=== PATIENT | male | born 1940 | race American Indian/Alaskan Native ===

== ENCOUNTER 2019-06-23 17:22 | Inpatient (IN) | payer BC, MEDICARE ==
--- NOTE | 2019-06-23 17:47 | Event Note ---
ED Screening Note Date of service: 06/23/19 Time: 17:40 ED Screening Note: This is a 78 y.o. M. that presents to ER with hematemesis and hematochezia. Stool and emesis was black started on 06/19/19. PMH Prostate CA, venous reflux, DM2, HTN, & HLD Patient states he is fatigue. This initial assessment/diagnostic orders/clinical plan/treatment(s) is/are subject to change based on patients health status, clinical progression and re- assessment by fellow clinical providers in the ED. Further treatment and workup at subsequent clinical providers discretion. Patient/guardian urged not to elope from the ED as their condition may be serious if not clinically assessed and managed. Initial orders include: Labs and XR of abdomen
[2019-06-23 18:10] LABS: Basophils % (Auto) 0.1 % (0.0-1.8); Eosinophils % (Auto) 0.2 % (0.0-4.3); Hematocrit 22.9 % (35.5-45.6); Hemoglobin 7.5 gm/dl (11.8-15.2); Lymphocytes # (Auto) 0.6 K/mm3 (1.2-5.4); Lymphocytes % (Auto) 6.2 % (13.4-35.0); Mean Corpuscular HGB Conc 33 % (32-34); Mean Corpuscular Volume 105 fl (84-94); Monocytes # (Auto) 0.9 K/mm3 (0.0-0.8); Monocytes % (Auto) 9.6 % (0.0-7.3); Platelet Count 159 K/mm3 (140-440); Red Blood Count 2.18 M/mm3 (3.65-5.03); Red Cell Distribution Width 14.9 % (13.2-15.2)
[2019-06-23 18:19] LABS: INR 1.08 (0.87-1.13)
[2019-06-23] MEDS ORDERED: NACL 0.9% 1000 ML 1,000 ML ONE (18:19)
[2019-06-23 18:20] LABS: Partial Thromboplastin Time 24.3 Sec. (24.2-36.6)
[2019-06-23 18:28] LABS: Calcium 8.9 mg/dL (8.4-10.2)
--- NOTE | 2019-06-23 18:28 | XRay Report ---
ABDOMEN 1 VIEW(S) INDICATION / CLINICAL INFORMATION: Abdominal pain COMPARISON: None available. FINDINGS: TUBES / LINES: None. BOWEL GAS PATTERN: Air-fluid levels involving small and large bowel, most consistent with adynamic il eus. No evidence of high-grade obstruction. Signer Name: Rob Garcia MD Signed: 06/23/2019 6:24 PM Workstation Name: [email or web address]
[2019-06-23] MEDS ORDERED: NACL 0.9% 500 ML 500 ML IV ONE (18:31)
[2019-06-23] MEDS ORDERED: NACL 0.9% 1000 ML 1,000 ML IV ONE (18:32)
--- NOTE | 2019-06-23 18:42 | Emergency Department Report ---
ED GI Bleed HPI - General Chief complaint: GI Bleed Stated complaint: DARK STOOL/VOMITING Time Seen by Provider: 06/23/19 17:39 Source: patient Mode of arrival: Wheelchair Limitations: No Limitations - History of Present Illness Initial comments: Mr. Woods is a 78 yo male with hx of HTN, DM, dyslipidemia, metastatic prostate CA who presents with 4 days of dark stools and vomiting. Denies pain. Has has severe weakness. In the ED today, Mr. Woods was rushed to the ED treatment room after witnessed synopal episode in the radiology department. Mr. Woods denies pain. He is on chronic aspirin therapy. Has had dark emesis. No previous hx of GI bleed. He is taking oral hormonal and chemotherapy agents for prostate CA. Dx'd in 2016. Two recurrencs since. PCP Dr. Khan in [place] Oncologist Dr. Edward Jimenez MD complaint: coffee ground emesis, melena -: Gradual, days(s) (4) Quality: painless Consistency: constant Improves with: none Worsens with: none Context: medication/supplement use (chemotherapy, aspirin) Associated Symptoms: malaise, syncope - Related Data Home Medications Medication Instructions Recorded Confirmed Last Taken Aspirin EC [Aspirin Enteric Coated 81 mg PO QDAY 12/22/15 12/23/15 12/23/15 TAB] Atorvastatin Calcium 1 tab PO DAILY 12/22/15 01/03/16 01/02/16 08:00 Lisinopril/Hydrochlorothiazide 1 tab PO BID 12/22/15 01/03/16 01/03/16 06:30 [Zestoretic 20-12.5 mg] [place]-3 Fatty Acids/Fish Oil [Fish 1 each PO DAILY 12/22/15 12/22/15 12/22/15 Oil] Pioglitazone HCl 30 mg PO DAILY 12/22/15 01/03/16 01/02/16 08:00 Tamsulosin [Flomax] 0.4 mg PO QDAY 12/22/15 01/03/16 01/02/16 08:00 Allergies Allergy/AdvReac Type Severity Reaction Status Date / Time No Known Allergies Allergy Unverified 11/08/15 10:54 ED Review of Systems ROS: Stated complaint: DARK STOOL/VOMITING Other details as noted in HPI Comment: All other systems reviewed and negative Constitutional: malaise Cardiovascular: denies: chest pain, palpitations Gastrointestinal: vomiting, hematemesis, hematochezia. denies: abdominal pain ED Past Medical Hx - Past Medical History Previous Medical History?: Yes Hx Hypertension: Yes (25 YRS +) Hx Congestive Heart Failure: No Hx Diabetes: Yes (12 YRS) Hx Sickle Cell Disease: No Hx Asthma: No Hx COPD: No Hx HIV: No Additional medical history: PROSTATE CA WITH TREATMENT, VENOUS REFLUX, ELEVATED CHOLESTEROL - Surgical History Past Surgical History?: Yes - Social History Smoking Status: Never Smoker Substance Use Type: Alcohol - Medications Home Medications: Home Medications Medication Instructions Recorded Confirmed Last Taken Type Aspirin EC [Aspirin Enteric Coated 81 mg PO QDAY 12/22/15 12/23/15 12/23/15 History TAB] Atorvastatin Calcium 1 tab PO DAILY 12/22/15 01/03/16 01/02/16 08:00 History Lisinopril/Hydrochlorothiazide 1 tab PO BID 12/22/15 01/03/16 01/03/16 06:30 History [Zestoretic 20-12.5 mg] [place]-3 Fatty Acids/Fish Oil [Fish 1 each PO DAILY 12/22/15 12/22/15 12/22/15 History Oil] Pioglitazone HCl 30 mg PO DAILY 12/22/15 01/03/16 01/02/16 08:00 History Tamsulosin [Flomax] 0.4 mg PO QDAY 12/22/15 01/03/16 01/02/16 08:00 History ED Physical Exam - General Limitations: No Limitations General appearance: alert, in no apparent distress - Head Head exam: Present: atraumatic, normocephalic - Eye Eye exam: Present: normal appearance - ENT ENT exam: Present: mucous membranes moist - Neck Neck exam: Present: normal inspection, full ROM. Absent: tenderness, meningismus - Respiratory Respiratory exam: Present: normal lung sounds bilaterally. Absent: respiratory distress, wheezes, rales, rhonchi - Cardiovascular Cardiovascular Exam: Present: normal rhythm, tachycardia, normal heart sounds. Absent: systolic murmur, diastolic murmur, rubs, gallop - GI/Abdominal GI/Abdominal exam: Present: soft, normal bowel sounds. Absent: distended, tenderness, guarding, rebound - Rectal Rectal exam: Present: normal rectal tone, heme (+) stool, other (reddish tarry stool) - Extremities Exam Extremities exam: Present: normal inspection - Back Exam Back exam: Present: normal inspection - Neurological Exam Neurological exam: Present: alert, oriented X3 - Psychiatric Psychiatric exam: Present: normal affect, normal mood - Skin Skin exam: Present: warm, dry, intact, pallor. Absent: rash ED Course Vital Signs 06/23/19 06/23/19 06/23/19 17:40 18:15 18:20 Temperature 98.1 F Pulse Rate 116 H 95 H Respiratory 22 16 Rate Blood Pressure 96/46 74/37 74/37 O2 Sat by Pulse 98 Oximetry 06/23/19 06/23/19 06/23/19 18:30 18:40 18:50 Temperature Pulse Rate 94 H 91 H 89 Respiratory 12 16 20 Rate Blood Pressure 98/44 98/39 99/43 O2 Sat by Pulse 100 100 99 Oximetry 06/23/19 06/23/19 06/23/19 19:00 19:10 19:20 Temperature Pulse Rate 92 H 90 95 H Respiratory 11 L 12 21 Rate Blood Pressure 103/46 106/46 112/27 O2 Sat by Pulse 100 100 98 Oximetry 06/23/19 06/23/19 06/23/19 19:30 19:40 19:50 Temperature Pulse Rate 93 H 93 H 94 H Respiratory 15 12 16 Rate Blood Pressure 98/33 107/45 103/48 O2 Sat by Pulse 97 100 99 Oximetry 06/23/19 06/23/19 06/23/19 20:00 20:16 20:30 Temperature Pulse Rate 91 H 91 H 103 H Respiratory 21 13 18 Rate Blood Pressure 105/46 113/46 100/52 O2 Sat by Pulse 100 100 100 Oximetry 06/23/19 06/23/19 21:00 21:16 Temperature Pulse Rate 102 H 98 H Respiratory 17 21 Rate Blood Pressure 121/43 O2 Sat by Pulse 100 100 Oximetry ED Medical Decision Making - Lab Data Result diagrams: 06/23/19 17:49 06/23/19 17:49 Laboratory Results - last 24 hr 06/23/19 06/23/19 06/23/19 17:49 17:49 17:49 WBC 9.2 RBC 2.18 L Hgb 7.5 L Hct 22.9 L MCV 105 H MCH 35 H MCHC 33 RDW 14.9 Plt Count 159 Lymph % (Auto) 6.2 L [place] % (Auto) 9.6 H Eos % (Auto) 0.2 Baso % (Auto) 0.1 Lymph # 0.6 L [place] # 0.9 H Eos # 0.0 Baso # 0.0 Seg Neutrophils % 83.9 H Seg Neutrophils # 7.7 PT 13.7 INR 1.08 APTT 24.3 Sodium 138 Potassium 4.8 Chloride 98.9 Carbon Dioxide 19 L Anion Gap 25 BUN 149 H Creatinine 6.0 H Estimated GFR 11 BUN/Creatinine Ratio 25 Glucose 174 H Calcium 8.9 Total Bilirubin 0.40 AST 14 ALT 14 Alkaline Phosphatase 48 Total Protein 6.6 Albumin 4.0 Albumin/Globulin Ratio 1.5 - EKG Data 06/23/19 18:40 EKG obtained 1813 Normal sinus rhythm rate 90 beats a minute normal axis left bundle branch block no ST elevation - Radiology Data Radiology results: report reviewed KUB air-fluid levels involving the small and large bowel most consistent with adynamic ileus - Medical Decision Making Subacute Upper GI bleed with a past 4 days, and acute kidney injury. Persistent hypotension in spite 1500 mL of normal saline, I asked nurse to obtaining O- blood from blood Bank. I did discuss case with GI Dr. Trujillo. He personally spoke with Dr. Jimenez. Normal creatinine in the outpatient setting one month ago. After O-blood one unit, repeat BP had improved. Protonix treatment ordered. Calero placed according to Dr. Trujillo's recommendation. Must consider urinary obstruction in this scenario. Dr. rTujillo performed upper endoscopy. Discovered gastric ulcer with active bleeding. Dr. Trujillo treated the gastric ulcer with epinephrine injection and endoscopic clip. He recommended ICU admission, nothing by mouth status, Protonix infusion. He also recommended withholding further transfusion unless repeat Hgb is below 7. Admitted to the hospitalist service in critical condition Critical Care Time: Yes Critical care time in (mins) excluding proc time.: 70 Critical care attestation.: If time is entered above; I have spent that time in minutes in the direct care of this critically ill patient, excluding procedure time. 70 minutes of critical care time excluding procedures were used in the care of the patient. Patient required multiple assessments and interventions. I reviewed the electronic medical record. I spoke extensively with the daughter at the bedside. I spoke with multiple consultants. Reviewed electronic medical record. ED Disposition Clinical Impression: Acute upper GI bleed, Hemorrhagic shock, Acute kidney injury, Prostate cancer Disposition: DC-[id number] OP ADMIT IP TO THIS HOSP Is pt being admited?: Yes Does the pt Need Aspirin: No Condition: Stable
--- NOTE | 2019-06-23 20:36 | Gastroenterology Consultation ---
History of Present Illness - Reason for Consult Consult date: 06/23/19 Melena Requesting physician: ISABEL WASSERMAN - History of Present Illness The patient is a 78 yo male who came to the ER for weakness over the last 4 days, and dark stools (twice today, without hematemesis). He follows with Ally Jimenez for minimally metastatic prostate CA (Dx about 3 years ago), and was started on prednisone and antitestosterone meds 1 month ago. At that time his hgb was 11 and his Creat was 1. He does take ASA daily at home, and PRN advil/goodys (though none of that in 3 days). He has had no upper GI surgery; he denies chronic dyspepsia. He has had no BRBPR or hematochezia. He has no CAD or CHF, but does have HTN and DM. After transfusion, his BP is normal but was low on admit (no need for pressors). He is mentating well, and does not have hypotension. He denies abdominal pain, SOB, or CP. There is no prior hx of liver or kidney disease. He does state that his urine production has decreased in the last several days (but has made some pale yellow urine in the ER). Past History Past Medical History: cancer (Mets Prostate CA (dx approx 2014; prostatectomy, and minimally diffuse disease; now on antitestosterone meds)), diabetes, hypertension, hyperlipidemia. denies: CAD Past Surgical History: Other (Prostatectomy) Social history: lives with family. denies: smoking, alcohol abuse Family history: no significant family history Medications and Allergies Allergies Allergy/AdvReac Type Severity Reaction Status Date / Time No Known Allergies Allergy Unverified 11/08/15 10:54 Home Medications Medication Instructions Recorded Confirmed Last Taken Type Aspirin EC [Aspirin Enteric Coated 81 mg PO QDAY 12/22/15 12/23/15 12/23/15 History TAB] Atorvastatin Calcium 1 tab PO DAILY 12/22/15 01/03/16 01/02/16 08:00 History Lisinopril/Hydrochlorothiazide 1 tab PO BID 12/22/15 01/03/16 01/03/16 06:30 History [Zestoretic 20-12.5 mg] [place]-3 Fatty Acids/Fish Oil [Fish 1 each PO DAILY 12/22/15 12/22/15 12/22/15 History Oil] Pioglitazone HCl 30 mg PO DAILY 12/22/15 01/03/16 01/02/16 08:00 History Tamsulosin [Flomax] 0.4 mg PO QDAY 12/22/15 01/03/16 01/02/16 08:00 History Active Meds: I HAVE REVIEWED AND RECONCILED MEDICATIONS Review of Systems - Review of Systems All systems: negative (as noted in the HPI.) Exam - Constitutional Vital Signs: Temp Pulse Resp BP Pulse Ox 98.1 F 94 H 16 103/48 99 06/23/19 17:40 06/23/19 19:50 06/23/19 19:50 06/23/19 19:50 06/23/19 19:50 General appearance: no acute distress - EENT Eyes: PERRL, EOM intact ENT: hearing intact, clear oral mucosa, dentition normal, no thrush - Neck Neck: supple, normal ROM - Respiratory Respiratory effort: normal Respiratory: bilateral: CTA - Cardiovascular Rhythm: regular Heart Sounds: Present: S1 & S2 Extremities: no ischemia, No edema - Gastrointestinal General gastrointestinal: Present: soft, non-tender, non-distended - Integumentary Integumentary: Present: clear, warm, dry - Neurologic Neurological: alert and oriented x3 - Labs CBC & Chem 7: 06/23/19 17:49 06/23/19 17:49 Lab Results: Laboratory Results - last 24 hr 06/23/19 06/23/19 06/23/19 17:49 17:49 17:49 WBC 9.2 RBC 2.18 L Hgb 7.5 L Hct 22.9 L MCV 105 H MCH 35 H MCHC 33 RDW 14.9 Plt Count 159 Lymph % (Auto) 6.2 L [place] % (Auto) 9.6 H Eos % (Auto) 0.2 Baso % (Auto) 0.1 Lymph # 0.6 L [place] # 0.9 H Eos # 0.0 Baso # 0.0 Seg Neutrophils % 83.9 H Seg Neutrophils # 7.7 PT 13.7 INR 1.08 APTT 24.3 Sodium 138 Potassium 4.8 Chloride 98.9 Carbon Dioxide 19 L Anion Gap 25 BUN 149 H Creatinine 6.0 H Estimated GFR 11 BUN/Creatinine Ratio 25 Glucose 174 H POC Glucose Calcium 8.9 Total Bilirubin 0.40 AST 14 ALT 14 Alkaline Phosphatase 48 Total Protein 6.6 Albumin 4.0 Albumin/Globulin Ratio 1.5 Blood Type Antibody Screen Crossmatch 06/23/19 06/23/19 18:21 19:23 WBC RBC Hgb Hct MCV MCH MCHC RDW Plt Count Lymph % (Auto) [place] % (Auto) Eos % (Auto) Baso % (Auto) Lymph # [place] # Eos # Baso # Seg Neutrophils % Seg Neutrophils # PT INR APTT Sodium Potassium Chloride Carbon Dioxide Anion Gap BUN Creatinine Estimated GFR BUN/Creatinine Ratio Glucose POC Glucose 199 H Calcium Total Bilirubin AST ALT Alkaline Phosphatase Total Protein Albumin Albumin/Globulin Ratio Blood Type B NEGATIVE Antibody Screen Negative Crossmatch See Detail Assessment and Plan - Patient Problems (1) Melena Current Visit: Yes Status: Acute Plan to address problem: - Likely PUD given ASA/Goodys/Prednisone use - Will give protonix IV - Keep NPO for possible EGD tonight pending clinical course. - BP now normal post 1 unit PRBC; recommend repeat before further transfusion (2) Prostate cancer metastatic to bone Current Visit: Yes Status: Acute Plan to address problem: - Dx approx 2014. - Minimally mets, but has been recurrent after prostatectomy and casodex therapy. - Currently on antitestosterone meds, and prednisone - No pelvic/bladder disease on PET March (3) Acute renal insufficiency Current Visit: Yes Status: Acute Plan to address problem: - Unclear if dehydration, reaction to new meds, or obstructive; patient is making urine in the ER (minimal, less than 100ml) - Will defer to IMS service
[2019-06-23] MEDS ORDERED: PROTONIX IV ONE (20:40)
[2019-06-23] MEDS ORDERED: WATER FOR IRRIG STERILE IR ONE (20:56)
--- NOTE | 2019-06-23 20:59 | Anesthesia Consultation ---
Anesthesia Consult and Med Hx Date of service: 06/23/19 - Airway Anesthetic Teeth Evaluation: Edentulous ROM Head & Neck: Adequate Mental/Hyoid Distance: Adequate Mallampati Class: Class III Intubation Access Assessment: Possibly Difficult - Pre-Operative Health Status ASA Pre-Surgery Classification: ASA3, Emergency Proposed Anesthetic Plan: MAC - Pulmonary Hx Smoking: Yes (SMOKED FROM [id number]; 1 YR ONLY) Hx Asthma: No COPD: No Hx Pneumonia: No - Cardiovascular System Hx Hypertension: Yes (25 YRS +) - Central Nervous System Hx Psychiatric Problems: No - Gastrointestinal Hx Ulcer: Yes (Upper GI bleed) - Endocrine Hx End Stage Renal Disease: No Hx Non-Insulin Dependent Diabetes: Yes - Hematic Hx Anemia: No Hx Sickle Cell Disease: No - Other Systems Hx Alcohol Use: Yes (DAILY/2 BEER DAILY W/SHOT LIQUER) Hx Substance Use: No Hx Cancer: Yes (Minimally metastatic prostate CA) Hx Obesity: Yes (BMI 35.1)
[2019-06-23] MEDS ORDERED: PROTONIX 80 MG in NACL 0.9% 100 ML IV SCH (21:00)
--- NOTE | 2019-06-23 21:00 | Anesthesia Day of Surgery ---
Anesthesia Day of Surgery - Day of Surgery Patient Examined: Yes Patient H&P Reviewed: Yes Patient is NPO: Yes
[2019-06-23] MEDS ORDERED: AMIDATE IV ONE (21:12)
[2019-06-23] MEDS ORDERED: ADRENALINE P/F IV ONE (21:30)
--- NOTE | 2019-06-23 22:02 | Post Operative Note ---
Pre-op diagnosis: GI Bleed Post-op diagnosis: other (Gastric Ulcer) Findings: 1. Normal duodenum 2. 5mm actively bleeding PUD in antrum - Clip x 1 (with 2 misfires) - Epinephrine 5ml subcut - Good control of bleed after procedure, but vessel large, and high risk to rebleed 3. Moderate blood and food in proximal stomach, unable to fully clear 4. Normal esophagus Procedure: EGD with epi injection and endoscopic clip for bleeding control Anesthesia: MAC Surgeon: TRAY CONTRERAS Estimated blood loss: minimal Pathology: none Specimen disposition: other (N/A) Condition: critical Disposition: ICU (Recs: 1. Protonix gtt and NPO status except critical meds. 2. Repeat EGD tomorrow to assess clip and retreat vessel (if active bleeding, would embolize given size). 3. Avoid all NSAIDs for now. 4. Transfuse as needed.)
--- NOTE | 2019-06-23 22:09 | Post Anesthesia Evaluation ---
- Post Anesthesia Evaluation Patient Participated: Yes Airway Patent: Yes Stable Respiratory Function: Yes Nausea/Vomiting: No Temp > 96.8F: Yes Pain Manageable: Yes Adequeate Hydration: Yes Anesthesia Complications: No
--- NOTE | 2019-06-23 22:21 | Operative Report ---
PROCEDURE PERFORMED: Esophagogastroduodenoscopy with epinephrine injection as well as endoscopic clipping for bleeding control. PREOPERATIVE DIAGNOSIS: Melena. POSTOPERATIVE DIAGNOSIS: Gastric ulcer. ENDOSCOPIST: Chidi Trujillo MD INSTRUMENT: Olympus video endoscope. MEDICATIONS: MAC anesthesia by Anesthesia Services. COMPLICATIONS: No apparent complications. ESTIMATED BLOOD LOSS: Minimal. Due to the procedure, but the patient was having an active GI bleed at the start of the procedure. IMPLANTS: Endoscopic clip x 1, MRI conditional; 3 clips were deployed, but 2 failed to adhere to the mucosa. ASSISTANTS: None. CONDITION AT COMPLETION: Critical but stable. TECHNIQUE: The patient was informed of the risks and benefits of the procedure. He signed informed consent to proceed. He was placed in left lateral decubitus position. The above sedative medications were given. His vital signs remained stable throughout the procedure. The instrument was advanced from the mouth to the second portion of the duodenum under direct visualization. At that point, the bowel was insufflated and the endoscope was slowly withdrawn. FINDINGS: 1. Normal appearing duodenum. 2. A 5 mm actively bleeding ulcer in the antrum of the stomach with a large visible vessels. A. We performed endoscopic clipping x3; 2 were misfires, but 1 adhered across the ulcer with clipping directly on the vessel. B. Epinephrine 5 mg was injected submucosally around the base of the ulcer to further prevent bleeding. C. There was good control of bleeding after the procedure, but the vessel, there was a clip to large and is at high risk to rebleed. 3. Moderate amount of blood and food in the proximal stomach, and we were unable to fully clear this. 4. Normal appearing esophagus with no varices. RECOMMENDATIONS: 1. Protonix drip and nothing by mouth status except for critical medications. 2. Admission to the Intensive Care Unit. 3. Repeat upper endoscopy tomorrow to assess the endoscopic clip and retreat the vessel if needed; if there is active significant bleeding, I would embolize given the size of the underlying vessel. 4. Avoid all nonsteroidal anti-inflammatory drugs for now. 5. Transfuse the patient as needed. JOB# [id number] MARKUS/NTS
[2019-06-23] MEDS ORDERED: SODIUM CHLORIDE FLUSH SYRINGE 10 ML IV PRN (22:57)
[2019-06-23] MEDS ORDERED: TYLENOL PO PRN (22:57)
[2019-06-23] MEDS ORDERED: ZOFRAN IV PRN (22:57)
[2019-06-23] MEDS ORDERED: NACL 0.9% 1000 ML 1,000 ML IV SCH (23:00)
[2019-06-23] MEDS ORDERED: ATIVAN IV PRN ×2 (23:06)
[2019-06-23] MEDS ORDERED: D50W (25GM) Syringe IV PRN (23:07)
--- NOTE | 2019-06-23 23:14 | History and Physical Report ---
History of Present Illness Date of examination: 06/23/19 History of present illness: 78-year-old man with a history of metastatic prostate cancer, hypertension, diabetes, venous insufficiency comes emergency room with complaints of back stool since June 19. He had 3 episodes of black stool and vomiting dark emesis on June 19, vomiting subsided but he continued to have black stools. Denies any NSAID use, is on aspirin, prednisone, chronic diuretic therapy. No NSAID use. s/p EGD in the emergency room, and transfusion of 1 unit of blood eview Of Systems: Constitutional: no weight loss, fever, chills Ears, eyes, nose, mouth and throat: no nasal congestion, no nasal discharge, no sinus pressure, blurry vision, diplopia Neck: No neck pain or rigidity. Cardiovascular: No palpitations, chest pain Respiratory: No shortness of breath, cough Gastrointestinal: No hematochezia, abdominal pain Genitourinary : no dysuria, frequency , hematuria Musculoskeletal: no muscle ache , joint pain Integumentary: no rash, no pruritis Neurological: no parathesias, focal weakness Endocrine: no cold or heat intolerance, no polyuria or polydipsia Hematologic/Lymphatic: no easy bruising, no easy bleeding, no gland swelling Allergic/Immunologic: no urticaria, no angioedema. PAST MEDICAL HISTORY:metastatic prostate cancer, hypertension, diabetes, venous insufficiency PAST SURGICAL HISTORY: Prostatectomy FAMILY HISTORY:hypertension, diabetes SOCIAL HISTORY: Denies tobacco, drugs, drink 2 cups of rum and coke/day Past History Past Medical History: cancer (Mets Prostate CA (dx approx 2014; prostatectomy, and minimally diffuse disease; now on antitestosterone meds)), diabetes, hypertension, hyperlipidemia. denies: CAD Past Surgical History: Other (Prostatectomy) Social history: lives with family. denies: smoking, alcohol abuse Family history: no significant family history Medications and Allergies Allergies Allergy/AdvReac Type Severity Reaction Status Date / Time No Known Allergies Allergy Unverified 11/08/15 10:54 Home Medications Medication Instructions Recorded Confirmed Last Taken Type Aspirin EC [Aspirin Enteric Coated 81 mg PO QDAY 12/22/15 12/23/15 12/23/15 History TAB] Atorvastatin Calcium 1 tab PO DAILY 12/22/15 01/03/16 01/02/16 08:00 History Lisinopril/Hydrochlorothiazide 1 tab PO BID 12/22/15 01/03/16 01/03/16 06:30 History [Zestoretic 20-12.5 mg] [place]-3 Fatty Acids/Fish Oil [Fish 1 each PO DAILY 12/22/15 12/22/15 12/22/15 History Oil] Pioglitazone HCl 30 mg PO DAILY 12/22/15 01/03/16 01/02/16 08:00 History Tamsulosin [Flomax] 0.4 mg PO QDAY 12/22/15 01/03/16 01/02/16 08:00 History Active Meds: Active Medications Acetaminophen (Tylenol) 650 mg PO Q4H PRN PRN Reason: Pain MILD(1-3)/Fever >100.5/MONTOYA Dextrose (D50w (25gm) Syringe) 50 ml IV PRN PRN PRN Reason: Hypoglycemia Pantoprazole Sodium 80 mg/ (Sodium Chloride) 100 mls @ 10 mls/hr IV DIRECT ROBERTO Last Admin: 06/23/19 22:35 Dose: 8 mg/hr, 10 mls/hr Documented by: Sodium Chloride (Nacl 0.9% 1000 Ml) 1,000 mls @ 75 mls/hr IV DIRECT ROBERTO Lorazepam (Ativan) 2 mg IV Q1HR PRN PRN Reason: CIWA-Ar 8-15 Lorazepam (Ativan) 4 mg IV Q1HR PRN PRN Reason: CIWA-Ar 16-25 Ondansetron HCl (Zofran) 4 mg IV Q4H PRN PRN Reason: Nausea And Vomiting Sodium Chloride (Sodium Chloride Flush Syringe 10 Ml) 10 ml IV BID ROBERTO Sodium Chloride (Sodium Chloride Flush Syringe 10 Ml) 10 ml IV PRN PRN PRN Reason: LINE FLUSH Exam - Physical Exam Narrative exam: General Apperance: The patient sitting in bed no acute distress HEENT: Normocephalic, atraumatic. Pupils equally round and reactive to light, extraocular movement intact, and no sclericterus or JVD or thyromegaly or nodule. Neck supple, no carotid bruit, mucous membranes moist, no exudate or erythema Heart: S1-S2, regular is rhythm Lungs: Clear to auscultation bilaterally, breathing comfortable Abdomen: Positive bowel sounds, soft, nontender, nondistended, no organomegaly Extremities: +edema no cyanosis clubbing Skin: no rash, nodule, warm and dry Neuro:CN 2 -12 intact, motor/sensory intact, speech is fluent - Constitutional Vitals: Temp Pulse Resp BP Pulse Ox 98.2 F 99 H 17 113/39 96 06/23/19 21:51 06/23/19 22:21 06/23/19 22:21 06/23/19 22:21 06/23/19 22:21 Results - Labs CBC & Chem 7: 06/24/19 04:17 06/24/19 04:17 Labs: Abnormal lab results 06/23/19 06/23/19 06/23/19 Range/Units 17:49 17:49 18:21 RBC 2.18 L (3.65-5.03) M/mm3 Hgb 7.5 L (11.8-15.2) gm/dl Hct 22.9 L (35.5-45.6) % MCV 105 H (84-94) fl MCH 35 H (28-32) pg Lymph % (Auto) 6.2 L (13.4-35.0) % [place] % (Auto) 9.6 H (0.0-7.3) % Lymph # 0.6 L (1.2-5.4) K/mm3 [place] # 0.9 H (0.0-0.8) K/mm3 Seg Neutrophils % 83.9 H (40.0-70.0) % Carbon Dioxide 19 L (22-30) mmol/L BUN 149 H (9-20) mg/dL Creatinine 6.0 H (0.8-1.5) mg/dL Glucose 174 H (75-100) mg/dL POC Glucose 199 H (70-105) Crossmatch 06/23/19 Range/Units 19:23 RBC (3.65-5.03) M/mm3 Hgb (11.8-15.2) gm/dl Hct (35.5-45.6) % MCV (84-94) fl MCH (28-32) pg Lymph % (Auto) (13.4-35.0) % [place] % (Auto) (0.0-7.3) % Lymph # (1.2-5.4) K/mm3 [place] # (0.0-0.8) K/mm3 Seg Neutrophils % (40.0-70.0) % Carbon Dioxide (22-30) mmol/L BUN (9-20) mg/dL Creatinine (0.8-1.5) mg/dL Glucose (75-100) mg/dL POC Glucose (70-105) Crossmatch See Detail - Imaging and Cardiology Abdominal x-ray: report reviewed Assessment and Plan Assessment GI bleed secondary to peptic ulcer disease, status post clipping Acute renal failure Blood loss anemia Hypertension Diabetes Venous insufficiency Plan Admit to medicine Transfuse packed red blood cells as needed, check serial hemoglobin Continue with Protonix drip, GI consult Start IV fluid, monitor renal function, removed diuretics and his other nephrotoxic medications Check CT abdomen and pelvis, consult renal, case discussed for renal Place [place], check fingersticks, hold insulin DVT prophylaxis
[2019-06-23 23:44] LABS: Hemoglobin 9.5 gm/dl (11.8-15.2)
--- NOTE | 2019-06-24 00:07 | Cat Scan Report ---
CT abdomen pelvis wo con INDICATION / CLINICAL INFORMATION: arf, PC. TECHNIQUE: All CT scans at this location are performed using CT dose reduction for ALARA by means of automated e xposure control. COMPARISON: 11/08/2015 FINDINGS: No acute disease is seen in either lower lung. ABDOMEN: The gallbladder, liver, spleen, pancreas and kidneys are normal. No adrenal masses or retroperitoneal adenopathy. The small bowel is normal in appearance. Pelvis: Postsurgical changes are noted in the pelvis. No pelvic adenopathy, dependent fluid collection or acute inflammatory findings. Blastic bone lesion has developed at the L1 vertebral body level extending into the posterior element s consistent with skeletal metastatic disease. IMPRESSION: 1. No acute abdominal or pelvic abnormality. 2. 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 Signer Name: Ryan Iglesias MD Signed: 06/24/2019 12:03 AM Workstation Name: [id number]
[2019-06-24] MEDS ORDERED: NACL 0.9% 1000 ML 1,000 ML ONE ×2 (03:40→16:39)
[2019-06-24 04:51] LABS: Hematocrit 23.8 % (35.5-45.6); Hemoglobin 7.9 gm/dl (11.8-15.2); Mean Corpuscular HGB Conc 33 % (32-34); Mean Corpuscular Volume 102 fl (84-94); Platelet Count 135 K/mm3 (140-440); Red Blood Count 2.33 M/mm3 (3.65-5.03); Red Cell Distribution Width 16.3 % (13.2-15.2)
[2019-06-24 05:13] LABS: Calcium 8.1 mg/dL (8.4-10.2)
[2019-06-24 05:33] LABS: Anisocytosis 1+; Band Neutrophils # (Manual) 0.2 K/mm3; Basophils % (Manual) 0 % (0.0-1.8); Eosinophils % (Manual) 0 % (0.0-4.3); Platelet Estimate Consistent w Auto; Total Cells Counted 100
[2019-06-24] MEDS ORDERED: NACL 0.45% 1000 ML 1,000 ML with SODIUM BICARBONATE 75 MEQ IV SCH (07:00)
--- NOTE | 2019-06-24 07:13 | Consultation ---
History of Present Illness Consult date: 06/24/19 Reason for consult: other (Syncope, GI bleed) Past History Past Medical History: cancer (Mets Prostate CA (dx approx 2015; prostatectomy, and minimally diffuse disease; now on antitestosterone meds)), diabetes, hypertension, hyperlipidemia. denies: CAD Past Surgical History: Other (Prostatectomy) Social history: lives with family. denies: smoking, alcohol abuse Family history: no significant family history Medications and Allergies Allergies Allergy/AdvReac Type Severity Reaction Status Date / Time No Known Allergies Allergy Unverified 11/08/15 10:54 Home Medications Medication Instructions Recorded Confirmed Last Taken Type ASA/Calcium Carb/Mag/Aluminum 81 mg PO DAILY 06/24/19 06/24/19 06/23/19 History [Raymond Plus 500 mg Caplet] Abiraterone Acetate 250 mg PO DAILY 06/24/19 06/24/19 06/23/19 History AtorvaSTATin [Lipitor] 40 mg PO DAILY 06/24/19 06/24/19 06/23/19 History Degarelix (Nf) [Firmagon (Nf)] 240 mg SQ QMONTH 06/24/19 06/24/19 Unknown History Furosemide 20 mg PO DAILY 06/24/19 06/24/19 06/23/19 History Lisinopril [Zestril] 20 mg PO QDAY 06/24/19 06/24/19 06/23/19 History Ondansetron [Zofran ODT TAB] 8 mg PO Q8HR PRN 06/24/19 06/24/19 06/23/19 History Prednisone [predniSONE (Shy) ER 5 mg PO QDAY 06/24/19 06/24/19 06/23/19 History TAB] Active Meds: Active Medications Acetaminophen (Tylenol) 650 mg PO Q4H PRN PRN Reason: Pain MILD(1-3)/Fever >100.5/MONTOYA Dextrose (D50w (25gm) Syringe) 50 ml IV PRN PRN PRN Reason: Hypoglycemia Pantoprazole Sodium 80 mg/ (Sodium Chloride) 100 mls @ 10 mls/hr IV DIRECT ROBERTO Last Admin: 06/23/19 22:35 Dose: 8 mg/hr, 10 mls/hr Documented by: Sodium Bicarbonate 75 meq/ (Sodium Chloride) 1,075 mls @ 150 mls/hr IV DIRECT ROBERTO Lorazepam (Ativan) 2 mg IV Q1HR PRN PRN Reason: CIWA-Ar 8-15 Lorazepam (Ativan) 4 mg IV Q1HR PRN PRN Reason: CIWA-Ar 16-25 Ondansetron HCl (Zofran) 4 mg IV Q4H PRN PRN Reason: Nausea And Vomiting Sodium Chloride (Sodium Chloride Flush Syringe 10 Ml) 10 ml IV BID ROBERTO Sodium Chloride (Sodium Chloride Flush Syringe 10 Ml) 10 ml IV PRN PRN PRN Reason: LINE FLUSH Physical Examination Vital signs: Vital Signs Temp Pulse Resp BP Pulse Ox 98.1 F 116 H 22 96/46 98 06/23/19 17:40 06/23/19 17:40 06/23/19 17:40 06/23/19 17:40 06/23/19 17:40 Results - Laboratory Findings CBC and BMP: 06/24/19 04:17 06/24/19 04:17 PT/INR, D-dimer PT 13.7 Sec. (12.2-14.9) 06/23/19 17:49 INR 1.08 (0.87-1.13) 06/23/19 17:49 Abnormal lab findings: Abnormal Labs 06/23/19 06/23/19 06/23/19 17:49 17:49 18:21 RBC 2.18 L Hgb 7.5 L Hct 22.9 L MCV 105 H MCH 35 H RDW Plt Count Lymph % (Auto) 6.2 L [place] % (Auto) 9.6 H Lymph # 0.6 L [place] # 0.9 H Seg Neutrophils % 83.9 H Seg Neuts % (Manual) Lymphocytes % (Manual) Monocytes % (Manual) Lymphocytes # (Manual) Monocytes # (Manual) Carbon Dioxide 19 L BUN 149 H Creatinine 6.0 H Glucose 174 H POC Glucose 199 H Calcium Crossmatch 06/23/19 06/23/19 06/24/19 19:23 23:25 04:17 RBC 2.33 L Hgb 9.5 L 7.9 L Hct 28.0 L 23.8 L MCV 102 H MCH 34 H RDW 16.3 H Plt Count 135 L Lymph % (Auto) [place] % (Auto) Lymph # [place] # Seg Neutrophils % Seg Neuts % (Manual) 79.0 H Lymphocytes % (Manual) 7.0 L Monocytes % (Manual) 12.0 H Lymphocytes # (Manual) 0.6 L Monocytes # (Manual) 1.1 H Carbon Dioxide BUN Creatinine Glucose POC Glucose Calcium Crossmatch See Detail 06/24/19 04:17 RBC Hgb Hct MCV MCH RDW Plt Count Lymph % (Auto) [place] % (Auto) Lymph # [place] # Seg Neutrophils % Seg Neuts % (Manual) Lymphocytes % (Manual) Monocytes % (Manual) Lymphocytes # (Manual) Monocytes # (Manual) Carbon Dioxide 20 L BUN 132 H Creatinine 4.8 H Glucose 113 H POC Glucose Calcium 8.1 L Crossmatch
--- NOTE | 2019-06-24 09:35 | Consultation ---
History of Present Illness - History of Present Illness My assessment and plan are as follows acute renal failure likely in a patient who has, risk factors for underlying chronic kidney disease would like to know his baseline creatinine from his treating oncologist, likely etiology appears to be due to volume depletion, he was also using DOUGIE inhibitor as well as Goody's powder in the outpatient setting, has had GI bleed Rule out any possibility of underlying chronic kidney disease as he does have multiple risk factors for that CAT scan obtained yesterday shows no evidence of any obstructive uropathy, there is evidence of osteoblastic metastatic disease at L1 There is no emergent indication for renal replacement therapy, , patient is a need for IV hydration and strict monitoring of intake and output if renal function fails to improve we may consider renal replacement therapy temporarily, Patient has been adequately counseled and educated regarding the severity of renal failure and possible need for renal replacement therapy In the meantime we'll like to follow daily labs, obtain renal ultrasonogram as well as workup for renal failure Mild metabolic acidosis to monitor and follow continue with hydration Hypotension with GI bleed, was also using Goody's powder Patient as well as his have been adequately counseled and educated regarding all the renal related issues Renal care plan was discussed with patient patient agrees for hemodialysis, Vas-Cath placement if required Prognosis remains guarded at this time We'll continue to follow and make recommendation from renal standpoint She have any questions please feel free to contact me at [phone] Cruz Soto M.D. [facility], [address] [place] [address] History of presenting illness 78-year-old male who has been admitted here with hematemesis as well as hematochezia, and was noted to have, a BUN of 149 creatinine 6.0 bicarbonate 19 with a hemoglobin of 7.5. Patient has been followed by Dr. Jimenez for metastatic prostate cancer diagnosed approximately 3 years ago and has been undergoing treatment., He has also been taking Advil as well as Goody's powder off and on. Patient denies any history of hepatitis B C HIV or lupus He was also feeling very dizzy and lightheaded prior to arrival Patient has had endoscopy in the emergency room and was given packed red blood cell transfusion/he was noted to have a 5 mm bleeding peptic ulcer disease in the antrum and is currently being followed by GI service His creatinine is 8.1 BUN of 120 with a bicarbonate of 20 today Patient was on lisinopril in outpatient setting 20 mg once a day And the old records his creatinine was 1.1 in 2016, His appetite has been very poor for last 3-4 days patient has received packed blood blood cell transfusion here was also noted to be hypotensive Past medical history significant for Metastatic prostate cancer Diabetes mellitus type 2 Venous insufficiency Nonsteroidal medications use Prostatectomy Current allergies: None Home medication present medication: Reviewed Social history/family history: Reviewed Review of systems positive for generalized weakness and dark stools fatigue poor appetite for last several days Patient has been using nonsteroidal drugs in outpatient setting including Goody's powder as well as Advil Physical examination: General: No acute distress HEENT: Oral mucosa moist no icterus, no facial swelling, Moderate pallor present Patient does have some uremic order Neck: Supple no thyromegaly no lymphadenopathy no JVD Chest: Clear to auscultation no crackles rales or wheezes Heart: Regular rate and rhythm S1-S2 heard no S3-S4 Abdomen: Soft nontender no organomegaly no masses palpable no renal bruit no suprapubic masses no CVA tenderness Dermatology: No skin rashes noted Extremity: Less than 1+ peripheral edema, dry skin no petechial rashes Musculoskeletal: No joint effusion noted in knee and ankle area Psych: No evidence of agitation and aggression noted Neurological: Alert awake follows commands no tremors no myoclonus Back: No CVA tenderness Past History Past Medical History: cancer (Mets Prostate CA (dx approx 2014; prostatectomy, and minimally diffuse disease; now on antitestosterone meds)), diabetes, hypertension, hyperlipidemia. denies: CAD Past Surgical History: Other (Prostatectomy) Social history: lives with family. denies: smoking, alcohol abuse Family history: no significant family history Medications and Allergies Allergies Allergy/AdvReac Type Severity Reaction Status Date / Time No Known Allergies Allergy Unverified 11/08/15 10:54 Home Medications Medication Instructions Recorded Confirmed Last Taken Type ASA/Calcium Carb/Mag/Aluminum 81 mg PO DAILY 06/24/19 06/24/19 06/23/19 History [Raymond Plus 500 mg Caplet] Abiraterone Acetate 250 mg PO DAILY 06/24/19 06/24/19 06/23/19 History AtorvaSTATin [Lipitor] 40 mg PO DAILY 06/24/19 06/24/19 06/23/19 History Degarelix (Nf) [Firmagon (Nf)] 240 mg SQ QMONTH 06/24/19 06/24/19 Unknown History Furosemide 20 mg PO DAILY 06/24/19 06/24/19 06/23/19 History Lisinopril [Zestril] 20 mg PO QDAY 06/24/19 06/24/19 06/23/19 History Ondansetron [Zofran ODT TAB] 8 mg PO Q8HR PRN 06/24/19 06/24/19 06/23/19 History Prednisone [predniSONE (Shy) ER 5 mg PO QDAY 06/24/19 06/24/19 06/23/19 History TAB] Active Meds: Active Medications Acetaminophen (Tylenol) 650 mg PO Q4H PRN PRN Reason: Pain MILD(1-3)/Fever >100.5/MONTOYA Dextrose (D50w (25gm) Syringe) 50 ml IV PRN PRN PRN Reason: Hypoglycemia Pantoprazole Sodium 80 mg/ (Sodium Chloride) 100 mls @ 10 mls/hr IV DIRECT ROBERTO Last Admin: 06/23/19 22:35 Dose: 8 mg/hr, 10 mls/hr Documented by: Sodium Bicarbonate 75 meq/ (Sodium Chloride) 1,075 mls @ 150 mls/hr IV DIRECT ROBERTO Lorazepam (Ativan) 2 mg IV Q1HR PRN PRN Reason: CIWA-Ar 8-15 Lorazepam (Ativan) 4 mg IV Q1HR PRN PRN Reason: CIWA-Ar 16-25 Ondansetron HCl (Zofran) 4 mg IV Q4H PRN PRN Reason: Nausea And Vomiting Sodium Chloride (Sodium Chloride Flush Syringe 10 Ml) 10 ml IV BID ROBERTO Sodium Chloride (Sodium Chloride Flush Syringe 10 Ml) 10 ml IV PRN PRN PRN Reason: LINE FLUSH Exam - Vital Signs Vital signs: Vital Signs Temp Pulse Resp BP Pulse Ox 98.1 F 116 H 22 96/46 98 06/23/19 17:40 06/23/19 17:40 06/23/19 17:40 06/23/19 17:40 06/23/19 17:40 Results - Lab Results 06/24/19 18:08 06/24/19 04:17 Most recent lab results Calcium 8.1 mg/dL (8.4-10.2) L 06/24/19 04:17
[2019-06-24] MEDS: SODIUM CHLORIDE FLUSH SYRINGE 10 ML IV SCH (10:00)
[2019-06-24] MEDS ORDERED: D50W (25GM) Syringe IV ONE (11:44)
--- NOTE | 2019-06-24 11:53 | Gastroenterology Progress Note ---
Assessment and Plan 1.UGIB/melena -H/H 7.9/23.8 s/p 1 unit PRBCs -continue to monitor H/H and transfuse as needed -hold blood thinning medications -no active signs of bleeding this am -s/p EGD overnight 06/23/19 that showed 5mm actively bleeding PUD in antrum (s/p clip x 1 and epinephrine with good control of bleed after procedure but vessel large and high risk to rebleed), moderate blood/food in proximal stomach (unable to fully clear), and normal esophagus and duodenum -etiology-likely PUD given ASA/Goodys/Prednisone use -will consider repeat EGD today based on progress to assess clip and retreat vessel -Keep NPO for now except critical meds -continue protonix drip -avoid NSAID -continue supportive care -if rebleeds, recommend consult to IR for possible embolization -will follow 2.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 - Minimally mets, but has been recurrent after prostatectomy and casodex therapy. - Currently on antitestosterone meds, and prednisone - No pelvic/bladder disease on PET March 12.acute renal insufficiency - Unclear if dehydration, reaction to new meds, or obstructive; patient is making urine in the ER (minimal, less than 100ml) - Will defer to IMS service Subjective Date of service: 06/24/19 Principal diagnosis: GI bleed Interval history: No acute distress or active signs of bleeding this am per pt/nursing. Objective - Constitutional Vitals: Temp Pulse Resp BP Pulse Ox 98.1 F 100 H 23 98/52 100 06/24/19 04:05 06/24/19 06:30 06/24/19 07:39 06/24/19 06:30 06/24/19 07:39 General appearance: no acute distress - Respiratory Respiratory effort: normal - Cardiovascular Rhythm: other (tachycardia) - Gastrointestinal General gastrointestinal: Present: soft, non-tender, non-distended, normal bowel sounds - Neurologic Neurological: alert and oriented x3 - Labs CBC & Chem 7: 06/24/19 04:17 06/24/19 04:17 Labs: Laboratory Results - last 24 hr 06/23/19 06/23/19 06/23/19 17:49 17:49 17:49 WBC 9.2 RBC 2.18 L Hgb 7.5 L Hct 22.9 L MCV 105 H MCH 35 H MCHC 33 RDW 14.9 Plt Count 159 Lymph % (Auto) 6.2 L [place] % (Auto) 9.6 H Eos % (Auto) 0.2 Baso % (Auto) 0.1 Lymph # 0.6 L [place] # 0.9 H Eos # 0.0 Baso # 0.0 Add Manual Diff Total Counted Seg Neutrophils % 83.9 H Seg Neuts % (Manual) Band Neutrophils % Lymphocytes % (Manual) Reactive Lymphs % (Man) Monocytes % (Manual) Eosinophils % (Manual) Basophils % (Manual) Metamyelocytes % Myelocytes % Promyelocytes % Blast Cells % Nucleated RBC % Seg Neutrophils # 7.7 Seg Neutrophils # Man Band Neutrophils # Lymphocytes # (Manual) Abs React Lymphs (Man) Monocytes # (Manual) Eosinophils # (Manual) Basophils # (Manual) Metamyelocytes # Myelocytes # Promyelocytes # Blast Cells # WBC Morphology Hypersegmented Neuts Hyposegmented Neuts Hypogranular Neuts Smudge Cells Toxic Granulation Toxic Vacuolation Dohle Bodies Pelger-Huet Anomaly Victorino Rods Platelet Estimate Clumped Platelets Plt Clumps, EDTA Large Platelets Giant Platelets Platelet Satelliting Plt Morphology Comment RBC Morphology Dimorphic RBCs Polychromasia Hypochromasia Poikilocytosis Anisocytosis Microcytosis Macrocytosis Spherocytes Pappenheimer Bodies Sickle Cells Target Cells Tear Drop Cells Ovalocytes Helmet Cells [place] Bodies [place] Rings Ekaterina Cells Bite Cells Crenated Cell Elliptocytes Acanthocytes (Spur) Rouleaux Hemoglobin C Crystals Schistocytes Malaria parasites Mario Bodies Hem Pathologist Commnt PT 13.7 INR 1.08 APTT 24.3 Sodium 138 Potassium 4.8 Chloride 98.9 Carbon Dioxide 19 L Anion Gap 25 BUN 149 H Creatinine 6.0 H Estimated GFR 11 BUN/Creatinine Ratio 25 Glucose 174 H POC Glucose Uric Acid Calcium 8.9 Total Bilirubin 0.40 AST 14 ALT 14 Alkaline Phosphatase 48 Total Creatine Kinase Total Protein 6.6 Albumin 4.0 Albumin/Globulin Ratio 1.5 Blood Type Antibody Screen Crossmatch 06/23/19 06/23/19 06/23/19 18:21 19:23 23:25 WBC RBC Hgb 9.5 L Hct 28.0 L MCV MCH MCHC RDW Plt Count Lymph % (Auto) [place] % (Auto) Eos % (Auto) Baso % (Auto) Lymph # [place] # Eos # Baso # Add Manual Diff Total Counted Seg Neutrophils % Seg Neuts % (Manual) Band Neutrophils % Lymphocytes % (Manual) Reactive Lymphs % (Man) Monocytes % (Manual) Eosinophils % (Manual) Basophils % (Manual) Metamyelocytes % Myelocytes % Promyelocytes % Blast Cells % Nucleated RBC % Seg Neutrophils # Seg Neutrophils # Man Band Neutrophils # Lymphocytes # (Manual) Abs React Lymphs (Man) Monocytes # (Manual) Eosinophils # (Manual) Basophils # (Manual) Metamyelocytes # Myelocytes # Promyelocytes # Blast Cells # WBC Morphology Hypersegmented Neuts Hyposegmented Neuts Hypogranular Neuts Smudge Cells Toxic Granulation Toxic Vacuolation Dohle Bodies Pelger-Huet Anomaly Victorino Rods Platelet Estimate Clumped Platelets Plt Clumps, EDTA Large Platelets Giant Platelets Platelet Satelliting Plt Morphology Comment RBC Morphology Dimorphic RBCs Polychromasia Hypochromasia Poikilocytosis Anisocytosis Microcytosis Macrocytosis Spherocytes Pappenheimer Bodies Sickle Cells Target Cells Tear Drop Cells Ovalocytes Helmet Cells [place] Bodies [place] Rings Rippey Cells Bite Cells Crenated Cell Elliptocytes Acanthocytes (Spur) Rouleaux Hemoglobin C Crystals Schistocytes Malaria parasites Mario Bodies Hem Pathologist Commnt PT INR APTT Sodium Potassium Chloride Carbon Dioxide Anion Gap BUN Creatinine Estimated GFR BUN/Creatinine Ratio Glucose POC Glucose 199 H Uric Acid Calcium Total Bilirubin AST ALT Alkaline Phosphatase Total Creatine Kinase Total Protein Albumin Albumin/Globulin Ratio Blood Type B NEGATIVE Antibody Screen Negative Crossmatch See Detail 06/24/19 06/24/19 06/24/19 04:17 04:17 04:17 WBC 9.1 RBC 2.33 L Hgb 7.9 L Hct 23.8 L MCV 102 H MCH 34 H MCHC 33 RDW 16.3 H Plt Count 135 L Lymph % (Auto) [place] % (Auto) Eos % (Auto) Baso % (Auto) Lymph # [place] # Eos # Baso # Add Manual Diff Complete Total Counted 100 Seg Neutrophils % Seg Neuts % (Manual) 79.0 H Band Neutrophils % 2.0 Lymphocytes % (Manual) 7.0 L Reactive Lymphs % (Man) 0 Monocytes % (Manual) 12.0 H Eosinophils % (Manual) 0 Basophils % (Manual) 0 Metamyelocytes % 0 Myelocytes % 0 Promyelocytes % 0 Blast Cells % 0 Nucleated RBC % Not Reportable Seg Neutrophils # Seg Neutrophils # Man 7.2 Band Neutrophils # 0.2 Lymphocytes # (Manual) 0.6 L Abs React Lymphs (Man) 0.0 Monocytes # (Manual) 1.1 H Eosinophils # (Manual) 0.0 Basophils # (Manual) 0.0 Metamyelocytes # 0.0 Myelocytes # 0.0 Promyelocytes # 0.0 Blast Cells # 0.0 WBC Morphology Not Reportable Hypersegmented Neuts Not Reportable Hyposegmented Neuts Not Reportable Hypogranular Neuts Not Reportable Smudge Cells Not Reportable Toxic Granulation Not Reportable Toxic Vacuolation Not Reportable Dohle Bodies Not Reportable Pelger-Huet Anomaly Not Reportable Victorino Rods Not Reportable Platelet Estimate Consistent w auto Clumped Platelets Not Reportable Plt Clumps, EDTA Not Reportable Large Platelets Not Reportable Giant Platelets Not Reportable Platelet Satelliting Not Reportable Plt Morphology Comment Not Reportable RBC Morphology Not Reportable Dimorphic RBCs Not Reportable Polychromasia Not Reportable Hypochromasia Not Reportable Poikilocytosis Not Reportable Anisocytosis 1+ Microcytosis Not Reportable Macrocytosis Not Reportable Spherocytes Not Reportable Pappenheimer Bodies Not Reportable Sickle Cells Not Reportable Target Cells Not Reportable Tear Drop Cells Not Reportable Ovalocytes Not Reportable Helmet Cells Not Reportable [place] Bodies Not Reportable [place] Rings Not Reportable Rippey Cells Not Reportable Bite Cells Not Reportable Crenated Cell Not Reportable Elliptocytes Not Reportable Acanthocytes (Spur) Not Reportable Rouleaux Not Reportable Hemoglobin C Crystals Not Reportable Schistocytes Not Reportable Malaria parasites Not Reportable Mario Bodies Not Reportable Hem Pathologist Commnt No PT INR APTT Sodium 141 Potassium 4.2 Chloride 106.3 Carbon Dioxide 20 L Anion Gap 19 BUN 132 H Creatinine 4.8 H Estimated GFR 14 BUN/Creatinine Ratio 28 Glucose 113 H POC Glucose Uric Acid 12.0 H Calcium 8.1 L Total Bilirubin AST ALT Alkaline Phosphatase Total Creatine Kinase 186 H Total Protein Albumin Albumin/Globulin Ratio Blood Type Antibody Screen Crossmatch 06/24/19 07:54 WBC RBC Hgb Hct MCV MCH MCHC RDW Plt Count Lymph % (Auto) [place] % (Auto) Eos % (Auto) Baso % (Auto) Lymph # [place] # Eos # Baso # Add Manual Diff Total Counted Seg Neutrophils % Seg Neuts % (Manual) Band Neutrophils % Lymphocytes % (Manual) Reactive Lymphs % (Man) Monocytes % (Manual) Eosinophils % (Manual) Basophils % (Manual) Metamyelocytes % Myelocytes % Promyelocytes % Blast Cells % Nucleated RBC % Seg Neutrophils # Seg Neutrophils # Man Band Neutrophils # Lymphocytes # (Manual) Abs React Lymphs (Man) Monocytes # (Manual) Eosinophils # (Manual) Basophils # (Manual) Metamyelocytes # Myelocytes # Promyelocytes # Blast Cells # WBC Morphology Hypersegmented Neuts Hyposegmented Neuts Hypogranular Neuts Smudge Cells Toxic Granulation Toxic Vacuolation Dohle Bodies Pelger-Huet Anomaly Victorino Rods Platelet Estimate Clumped Platelets Plt Clumps, EDTA Large Platelets Giant Platelets Platelet Satelliting Plt Morphology Comment RBC Morphology Dimorphic RBCs Polychromasia Hypochromasia Poikilocytosis Anisocytosis Microcytosis Macrocytosis Spherocytes Pappenheimer Bodies Sickle Cells Target Cells Tear Drop Cells Ovalocytes Helmet Cells [place] Bodies [place] Rings Ekaterina Cells Bite Cells Crenated Cell Elliptocytes Acanthocytes (Spur) Rouleaux Hemoglobin C Crystals Schistocytes Malaria parasites Mario Bodies Hem Pathologist Commnt PT INR APTT Sodium Potassium Chloride Carbon Dioxide Anion Gap BUN Creatinine Estimated GFR BUN/Creatinine Ratio Glucose POC Glucose 120 H Uric Acid Calcium Total Bilirubin AST ALT Alkaline Phosphatase Total Creatine Kinase Total Protein Albumin Albumin/Globulin Ratio Blood Type Antibody Screen Crossmatch
--- NOTE | 2019-06-24 12:50 | Progress Note ---
Assessment and Plan GI bleed secondary to peptic ulcer disease, - status post clipping, GI following - s/p EGD overnight 06/23/19 that showed 5mm actively bleeding PUD in antrum (s/p clip x 1 and epinephrine with good control of bleed after procedure but ves omero large and high risk to rebleed), moderate blood/food in proximal stomach (unable to fully clear), and normal esophagus and duodenum -etiology-likely PUD given ASA/Goodys/Prednisone use -plan for repeat EGD today to assess clip and retreat vessel -continue protonix drip -avoid NSAID -continue supportive care -if rebleeds, will consult to IR for possible embolization Acute renal failure with metabolic acidosis - likely from severe dehydration with ATN - cont iv fluid with bicarbonate drip Blood loss anemia - transfuse 2 units of PRBC, monitor h/h Hypovolumic shock - cont iv fluid. start on pressor Prostate cancer metastatic to bone - Dx approx 2014. - Minimally mets, but has been recurrent after prostatectomy and casodex therapy. - Currently on antitestosterone meds, and prednisone - No pelvic/bladder disease on PET March Diabetes type 2, SSI for now DVT prophylaxis, SCD - full code, Poor prognosis The high probability of a clinically significant, sudden or life threatening d eterioration of the [multiple] system(s) required my full and direct attention, intervention and personal management. The aggregate critical care time was [34] minutes. This time is in addition to time spent performing reported procedures but includes the following: [x] Data Review and interpretation [x] Patient assessment and monitoring of vital signs [x] Documentation [x] Medication orders and management Brief History: 78-year-old man with a history of metastatic prostate cancer, hypertension, diabetes, venous insufficiency comes emergency room with complaints of back stool since June 19. He had 3 episodes of black stool and vomiting dark emesis on June 19, vomiting subsided but he continued to have black stools. Denies any NSAID use, is on aspirin, prednisone, chronic diuretic therapy. s/p EGD in the emergency room, and transfusion of 1 unit of blood, admitted for further mx Radiological data: CT abdomen/pelvis: 1. No acute abdominal or pelvic abnormality. 2. 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 Hospitalist Physical exam: GENERAL: well-developed obese AAM lying on bed appeared to be in no discomfort. HEENT: Normocephalic. Atraumatic. No conjunctival congestion or icterus. Pat ient has moist mucous membranes. NECK: Supple. Trachea midline. CHEST/LUNGS: Clear to auscultated bilaterally, breathing nonlabored. No wheezes crackles or rhonchi. HEART/CARDIOVASCULAR: Regular in rate and rhythm. S1 and S2 positive. + murmur on aortic area ABDOMEN: Abdomen is soft, nontender. Patient has normal bowel sounds. SKIN: There is no rash. Warm and dry. NEURO: No focal motor deficit. Follows command. MUSCULOSKELETAL: No joint effusion or tenderness. EXTRIMITY: No edema, no cyanosis or clubbing. PSYCH: Cooperative. Subjective Date of service: 06/24/19 Principal diagnosis: GI bleed Interval history: Patient seen and examined. Medical records and medication list reviewed. No acute event overnight noted by the RN. Patient denies any chest pain or difficulty breathing. Patient is nothing by mouth now for repeat EGD today Blood pressure at the low 80s, Discussed plan of care at bedside with patient and his daughter. Objective - Constitutional Vitals: Vital Signs - 12hr 06/24/19 06/24/19 06/24/19 01:00 01:16 03:16 Temperature Pulse Rate 93 H 91 H 95 H Respiratory 13 14 17 Rate Blood Pressure 99/35 120/50 84/36 O2 Sat by Pulse 96 100 100 Oximetry 06/24/19 06/24/19 06/24/19 03:46 04:00 04:05 Temperature 98.1 F Pulse Rate 99 H 96 H Respiratory 15 22 Rate Blood Pressure 84/45 108/45 O2 Sat by Pulse 100 98 Oximetry 06/24/19 06/24/19 06/24/19 04:16 04:30 04:46 Temperature Pulse Rate 93 H 93 H 92 H Respiratory 15 17 30 H Rate Blood Pressure 108/45 111/43 111/43 O2 Sat by Pulse 100 97 Oximetry 06/24/19 06/24/19 06/24/19 05:00 05:16 05:30 Temperature Pulse Rate 86 87 95 H Respiratory 20 13 15 Rate Blood Pressure 120/48 120/48 120/48 O2 Sat by Pulse 95 98 100 Oximetry 06/24/19 06/24/19 06/24/19 05:46 06:00 06:16 Temperature Pulse Rate 134 H 97 H 89 Respiratory 15 21 17 Rate Blood Pressure 98/52 97/52 97/52 O2 Sat by Pulse 89 92 91 Oximetry 06/24/19 06/24/19 06/24/19 06:30 07:00 07:30 Temperature Pulse Rate 100 H 99 H 99 H Respiratory 23 15 17 Rate Blood Pressure 98/52 99/53 99/53 O2 Sat by Pulse 100 93 100 Oximetry 06/24/19 06/24/19 06/24/19 07:39 08:00 08:30 Temperature Pulse Rate 98 H 89 Respiratory 23 19 17 Rate Blood Pressure 100/47 90/42 O2 Sat by Pulse 100 100 Oximetry 06/24/19 06/24/19 06/24/19 09:00 09:30 11:30 Temperature Pulse Rate 91 H 95 H 107 H Respiratory 14 15 23 Rate Blood Pressure 108/52 108/52 98/43 O2 Sat by Pulse 93 99 100 Oximetry 06/24/19 06/24/19 12:00 12:30 Temperature Pulse Rate 101 H 93 H Respiratory 18 13 Rate Blood Pressure 97/41 71/37 O2 Sat by Pulse 94 98 Oximetry - Labs CBC & Chem 7: 06/25/19 04:48 06/25/19 04:48 Labs: Abnormal lab results 06/23/19 06/23/19 06/23/19 Range/Units 17:49 17:49 18:21 RBC 2.18 L (3.65-5.03) M/mm3 Hgb 7.5 L (11.8-15.2) gm/dl Hct 22.9 L (35.5-45.6) % MCV 105 H (84-94) fl MCH 35 H (28-32) pg RDW (13.2-15.2) % Plt Count (140-440) K/mm3 Lymph % (Auto) 6.2 L (13.4-35.0) % [place] % (Auto) 9.6 H (0.0-7.3) % Lymph # 0.6 L (1.2-5.4) K/mm3 [place] # 0.9 H (0.0-0.8) K/mm3 Seg Neutrophils % 83.9 H (40.0-70.0) % Seg Neuts % (Manual) (40.0-70.0) % Lymphocytes % (Manual) (13.4-35.0) % Monocytes % (Manual) (0.0-7.3) % Lymphocytes # (Manual) (1.2-5.4) K/mm3 Monocytes # (Manual) (0.0-0.8) K/mm3 Carbon Dioxide 19 L (22-30) mmol/L BUN 149 H (9-20) mg/dL Creatinine 6.0 H (0.8-1.5) mg/dL Glucose 174 H (75-100) mg/dL POC Glucose 199 H (70-105) Uric Acid (3.5-7.6) mg/dL Calcium (8.4-10.2) mg/dL Total Creatine Kinase (55-170) units/L Crossmatch 06/23/19 06/23/19 06/24/19 Range/Units 19:23 23:25 04:17 RBC 2.33 L (3.65-5.03) M/mm3 Hgb 9.5 L 7.9 L (11.8-15.2) gm/dl Hct 28.0 L 23.8 L (35.5-45.6) % MCV 102 H (84-94) fl MCH 34 H (28-32) pg RDW 16.3 H (13.2-15.2) % Plt Count 135 L (140-440) K/mm3 Lymph % (Auto) (13.4-35.0) % [place] % (Auto) (0.0-7.3) % Lymph # (1.2-5.4) K/mm3 [place] # (0.0-0.8) K/mm3 Seg Neutrophils % (40.0-70.0) % Seg Neuts % (Manual) 79.0 H (40.0-70.0) % Lymphocytes % (Manual) 7.0 L (13.4-35.0) % Monocytes % (Manual) 12.0 H (0.0-7.3) % Lymphocytes # (Manual) 0.6 L (1.2-5.4) K/mm3 Monocytes # (Manual) 1.1 H (0.0-0.8) K/mm3 Carbon Dioxide (22-30) mmol/L BUN (9-20) mg/dL Creatinine (0.8-1.5) mg/dL Glucose (75-100) mg/dL POC Glucose (70-105) Uric Acid (3.5-7.6) mg/dL Calcium (8.4-10.2) mg/dL Total Creatine Kinase (55-170) units/L Crossmatch See Detail 06/24/19 06/24/19 06/24/19 Range/Units 04:17 04:17 07:54 RBC (3.65-5.03) M/mm3 Hgb (11.8-15.2) gm/dl Hct (35.5-45.6) % MCV (84-94) fl MCH (28-32) pg RDW (13.2-15.2) % Plt Count (140-440) K/mm3 Lymph % (Auto) (13.4-35.0) % [place] % (Auto) (0.0-7.3) % Lymph # (1.2-5.4) K/mm3 [place] # (0.0-0.8) K/mm3 Seg Neutrophils % (40.0-70.0) % Seg Neuts % (Manual) (40.0-70.0) % Lymphocytes % (Manual) (13.4-35.0) % Monocytes % (Manual) (0.0-7.3) % Lymphocytes # (Manual) (1.2-5.4) K/mm3 Monocytes # (Manual) (0.0-0.8) K/mm3 Carbon Dioxide 20 L (22-30) mmol/L BUN 132 H (9-20) mg/dL Creatinine 4.8 H (0.8-1.5) mg/dL Glucose 113 H (75-100) mg/dL POC Glucose 120 H (70-105) Uric Acid 12.0 H (3.5-7.6) mg/dL Calcium 8.1 L (8.4-10.2) mg/dL Total Creatine Kinase 186 H (55-170) units/L Crossmatch
[2019-06-24] MEDS ORDERED: LEVOPHED DRIP 4 MG/NS 250 ML 4 MG/250 ML BAG IV ONE (12:55)
[2019-06-24] MEDS ORDERED: LEVOPHED DRIP 4 MG/NS 250 ML 4 MG/250 ML BAG IV SCH (13:00)
[2019-06-24] MEDS ORDERED: NACL 0.9% 500 ML 500 ML ONE (13:12)
[2019-06-24 13:24] LABS: Bilirubin,Urine NEG (Negative); Blood,Urine LG (Negative); Color,Urine Straw (Yellow); Mucus,Urine FEW /HPF; Protein,Urine <15 mg/dL mg/dL (Negative); Urobilinogen,Urine < 2.0 mg/dL (<2.0)
[2019-06-24 13:50] LABS: Creatinine,Urine 75.9 mg/dL (0.1-20.0)
--- NOTE | 2019-06-24 14:26 | Event Note ---
Date: 06/24/19 Patient developed hypotension this afternoon and was started on pressor support. Receiving 2nd unit PRBCs with BP now improving. No active signs of bleeding but will proceed with repeat EGD today.
[2019-06-24] MEDS ORDERED: DIPRIVAN 10 MG/ML IV ONE ×2 (16:21)
--- NOTE | 2019-06-24 17:46 | Post Anesthesia Evaluation ---
- Post Anesthesia Evaluation Patient Participated: Yes Airway Patent: Yes Stable Respiratory Function: Yes Nausea/Vomiting: No Temp > 96.8F: Yes Pain Manageable: Yes Adequeate Hydration: Yes Anesthesia Complications: No Other Comments: No change in pressor requirements. Transfer to ICU.
[2019-06-24 18:57] LABS: Hematocrit 26.9 % (35.5-45.6); Hemoglobin 8.6 gm/dl (11.8-15.2)
[2019-06-24] MEDS ORDERED: SODIUM BICARBONATE 150 MEQ in D5W 1,000 ML IV SCH (19:00)
--- NOTE | 2019-06-24 20:48 | Post Operative Note ---
Pre-op diagnosis: gi bleed Post-op diagnosis: same Findings: EGD: hiatal hernia - ulcer mainly white based w/ pigmented area (1 cm), no intervention, antrum - multiple other small ulcers antrum - negative other Procedure: EGD Anesthesia: MAC Surgeon: HEIKE JEWELL Estimated blood loss: none Pathology: list Specimen disposition: to lab Condition: stable Disposition: floor
--- NOTE | 2019-06-24 22:18 | Operative Report ---
PROCEDURE: EGD. INDICATIONS: 1. Anemia. 2. Gastrointestinal bleed. MEDICATIONS: Propofol per CAREER AND TRANSITION TEACHER. COMPLICATIONS: None. DESCRIPTION OF PROCEDURE: The patient was brought to the procedure suite. The patient had the procedure discussed with him at length. All risks, complications, and benefits discussed after which the patient signed for the procedure to be performed. The patient was placed in a flat decubitus position. Mouth block was placed in the patient's oral cavity. After adequate sedation medication as above, endoscope was introduced into the mouth and brought to the level of the second portion of duodenum. Retroflexion view performed. The patient's vital signs remained stable throughout the procedure. FINDINGS: There was a small hiatal hernia at GE junction 38 cm from the gums. Esophagus otherwise appeared to be normal. There was a large approximately 1 cm mainly white base, but central pigmented ulcer with a central pigmented spot. No visible vessel or other stigmata requiring treatment was noted at this time. It should also be noted that the previously placed clip was not seen. No stigmata requiring treatment was noted as well. No treatment was applied. There were multiple smaller 3-8 mm ulcer scattered around the antrum also. These are all white base and no interventions were performed. The remaining stomach otherwise appeared to be normal. Duodenum appeared to be normal. Retroflexion view performed in the stomach showed no other pathology other than noted above. The patient tolerated the procedure well. No complications during the procedure. IMPRESSION: 1. Hiatal hernia. 2. Otherwise, normal esophagus. 3. Peptic ulcer disease with no bleeding stigmata requiring treatment as noted above. 4. Otherwise, normal EGD. RECOMMENDATIONS: 1. Continue PPI IV drip. 2. Follow hematocrit and transfuse as needed. 3. Start p.o. and advance as tolerated. 4. We will follow. JOB# [id number] CAB/NTS
[2019-06-24 22:34] LABS: Hematocrit 24.7 % (35.5-45.6); Hemoglobin 8.3 gm/dl (11.8-15.2)
[2019-06-25 05:37] LABS: Hematocrit 25.8 % (35.5-45.6); Hemoglobin 8.7 gm/dl (11.8-15.2)
[2019-06-25 05:56] LABS: Calcium 8.3 mg/dL (8.4-10.2)
--- NOTE | 2019-06-25 09:39 | Progress Note ---
Subjective Date of service: 06/25/19 Principal diagnosis: GI bleed Interval history: Patient is seen today for: Seen and examined at bedside; 24hour events reviewed; nursing and respiratory care staff consulted; no adverse overnight events reported to me; Objective Vital Signs - 12hr 06/24/19 06/24/19 06/24/19 22:00 23:00 23:06 Temperature Pulse Rate 89 90 90 Pulse Rate [ Apical] Respiratory 12 13 13 Rate Blood Pressure 130/55 90/40 92/50 O2 Sat by Pulse 100 100 Oximetry 06/25/19 06/25/19 06/25/19 00:00 01:00 02:00 Temperature 98.7 F Pulse Rate 99 H 104 H 95 H Pulse Rate [ 92 H Apical] Respiratory 19 22 14 Rate Blood Pressure 85/55 85/55 118/50 O2 Sat by Pulse 100 100 100 Oximetry 06/25/19 06/25/19 06/25/19 03:00 03:55 04:00 Temperature 98.6 F Pulse Rate 109 H 91 H Pulse Rate [ 90 Apical] Respiratory 21 13 Rate Blood Pressure 128/73 128/73 O2 Sat by Pulse 100 100 Oximetry 06/25/19 06/25/19 06/25/19 05:00 06:00 07:00 Temperature Pulse Rate 111 H 88 93 H Pulse Rate [ Apical] Respiratory 23 12 13 Rate Blood Pressure 112/57 129/63 107/50 O2 Sat by Pulse 100 100 100 Oximetry 06/25/19 06/25/19 08:00 08:04 Temperature 98.4 F Pulse Rate 98 H Pulse Rate [ Apical] Respiratory 21 Rate Blood Pressure 106/54 O2 Sat by Pulse 100 100 Oximetry CBC and BMP: 06/25/19 04:48 06/25/19 04:48 ABG, PT/INR, D-dimer: PT/INR, D-dimer PT 13.7 Sec. (12.2-14.9) 06/23/19 17:49 INR 1.08 (0.87-1.13) 06/23/19 17:49 Abnormal lab findings: Abnormal Labs 06/23/19 06/23/19 06/23/19 17:49 17:49 18:21 RBC 2.18 L Hgb 7.5 L Hct 22.9 L MCV 105 H MCH 35 H RDW Plt Count Lymph % (Auto) 6.2 L [place] % (Auto) 9.6 H Lymph # 0.6 L [place] # 0.9 H Seg Neutrophils % 83.9 H Seg Neuts % (Manual) Lymphocytes % (Manual) Monocytes % (Manual) Lymphocytes # (Manual) Monocytes # (Manual) Sodium Chloride Carbon Dioxide 19 L BUN 149 H Creatinine 6.0 H Glucose 174 H POC Glucose 199 H Uric Acid Calcium Total Creatine Kinase Urine Creatinine Crossmatch 06/23/19 06/23/19 06/24/19 19:23 23:25 04:17 RBC 2.33 L Hgb 9.5 L 7.9 L Hct 28.0 L 23.8 L MCV 102 H MCH 34 H RDW 16.3 H Plt Count 135 L Lymph % (Auto) [place] % (Auto) Lymph # [place] # Seg Neutrophils % Seg Neuts % (Manual) 79.0 H Lymphocytes % (Manual) 7.0 L Monocytes % (Manual) 12.0 H Lymphocytes # (Manual) 0.6 L Monocytes # (Manual) 1.1 H Sodium Chloride Carbon Dioxide BUN Creatinine Glucose POC Glucose Uric Acid Calcium Total Creatine Kinase Urine Creatinine Crossmatch See Detail 06/24/19 06/24/19 06/24/19 04:17 04:17 07:54 RBC Hgb Hct MCV MCH RDW Plt Count Lymph % (Auto) [place] % (Auto) Lymph # [place] # Seg Neutrophils % Seg Neuts % (Manual) Lymphocytes % (Manual) Monocytes % (Manual) Lymphocytes # (Manual) Monocytes # (Manual) Sodium Chloride Carbon Dioxide 20 L BUN 132 H Creatinine 4.8 H Glucose 113 H POC Glucose 120 H Uric Acid 12.0 H Calcium 8.1 L Total Creatine Kinase 186 H Urine Creatinine Crossmatch 06/24/19 06/24/19 06/24/19 13:01 17:52 18:08 RBC Hgb 8.6 L Hct 26.9 L MCV MCH RDW Plt Count Lymph % (Auto) [place] % (Auto) Lymph # [place] # Seg Neutrophils % Seg Neuts % (Manual) Lymphocytes % (Manual) Monocytes % (Manual) Lymphocytes # (Manual) Monocytes # (Manual) Sodium Chloride Carbon Dioxide BUN Creatinine Glucose POC Glucose 141 H Uric Acid Calcium Total Creatine Kinase Urine Creatinine 75.9 H Crossmatch 06/24/19 06/24/19 06/24/19 20:27 21:51 23:32 RBC Hgb 8.3 L Hct 24.7 L MCV MCH RDW Plt Count Lymph % (Auto) [place] % (Auto) Lymph # [place] # Seg Neutrophils % Seg Neuts % (Manual) Lymphocytes % (Manual) Monocytes % (Manual) Lymphocytes # (Manual) Monocytes # (Manual) Sodium Chloride Carbon Dioxide BUN Creatinine Glucose POC Glucose 141 H 148 H Uric Acid Calcium Total Creatine Kinase Urine Creatinine Crossmatch 06/25/19 06/25/19 06/25/19 03:54 04:48 04:48 RBC Hgb 8.7 L Hct 25.8 L MCV MCH RDW Plt Count Lymph % (Auto) [place] % (Auto) Lymph # [place] # Seg Neutrophils % Seg Neuts % (Manual) Lymphocytes % (Manual) Monocytes % (Manual) Lymphocytes # (Manual) Monocytes # (Manual) Sodium 147 H Chloride 111.7 H Carbon Dioxide 21 L BUN 88 H Creatinine 2.6 H Glucose 144 H POC Glucose 165 H Uric Acid Calcium 8.3 L Total Creatine Kinase Urine Creatinine Crossmatch 06/25/19 07:56 RBC Hgb Hct MCV MCH RDW Plt Count Lymph % (Auto) [place] % (Auto) Lymph # [place] # Seg Neutrophils % Seg Neuts % (Manual) Lymphocytes % (Manual) Monocytes % (Manual) Lymphocytes # (Manual) Monocytes # (Manual) Sodium Chloride Carbon Dioxide BUN Creatinine Glucose POC Glucose 173 H Uric Acid Calcium Total Creatine Kinase Urine Creatinine Crossmatch
[2019-06-25] MEDS ORDERED: SODIUM BICARBONATE 50 MEQ in D5W 1,000 ML IV SCH (10:00)
[2019-06-25] MEDS: PROTONIX PO SCH ×2 (11:12→22:46)
[2019-06-25] MEDS: SODIUM CHLORIDE FLUSH SYRINGE 10 ML IV SCH ×3 (11:13→22:49)
--- NOTE | 2019-06-25 11:13 | Progress Note ---
Subjective Principal diagnosis: GI bleed Interval history: Patient was seen today for follow-up of multiple renal related issues No complaints of any chest pain pressure or shortness of breath he is feeling much better Creatinine is currently improving Interdisciplinary notes that also reviewed Events of 24 hours vitals labs intake output medications were reviewed Past medical history: Reviewed Family history: Reviewed Social history: Reviewed Allergies: Reviewed Physical examination: Vitals: Reviewed HEENT: No pallor or icterus oral mucosa moist Neck: Supple no JVD no thyromegaly Chest: Bilateral clear to auscultation anteriorly Heart: Regular rate and rhythm S1-S2 heard no S3-S4 Abdomen: Soft nontender no voluntary guarding rigidity rebound Extremity: Dry skin less than 1+ peripheral edema Psychiatric: No evidence of agitation and aggression noted Dermatology: No petechial rashes Labs and x-rays: Reviewed from today Assessment and plan Failure: Renal function appears to be improving Hyperkalemia mild currently improving Metabolic acidosis currently improving No indication for renal replacement therapy Plan was discussed with patient, as well as daughter Patient was adequately counseled and educated regarding all the renal related issues Laboratory studies, pertinent for discussed with patient All questions were answered and simple [place] We'll continue to follow and make recommendation for renal standpoint Objective - Vital Signs Vital signs: Vital Signs - 12hr 06/25/19 06/25/19 06/25/19 00:00 01:00 02:00 Temperature 98.7 F Pulse Rate 99 H 104 H 95 H Pulse Rate [ 92 H Apical] Respiratory 19 22 14 Rate Blood Pressure 85/55 85/55 118/50 O2 Sat by Pulse 100 100 100 Oximetry 06/25/19 06/25/19 06/25/19 03:00 03:55 04:00 Temperature 98.6 F Pulse Rate 109 H 91 H Pulse Rate [ 90 Apical] Respiratory 21 13 Rate Blood Pressure 128/73 128/73 O2 Sat by Pulse 100 100 Oximetry 06/25/19 06/25/19 06/25/19 05:00 06:00 07:00 Temperature Pulse Rate 111 H 88 93 H Pulse Rate [ Apical] Respiratory 23 12 13 Rate Blood Pressure 112/57 129/63 107/50 O2 Sat by Pulse 100 100 100 Oximetry 06/25/19 06/25/19 08:00 08:04 Temperature 98.4 F Pulse Rate 98 H Pulse Rate [ Apical] Respiratory 21 Rate Blood Pressure 106/54 O2 Sat by Pulse 100 100 Oximetry - Lab 06/25/19 04:48 06/25/19 04:48 Most recent lab results Calcium 8.3 mg/dL (8.4-10.2) L 06/25/19 04:48 Urine Creatinine 75.9 mg/dL (0.1-20.0) H 06/24/19 13:01 Urine Sodium 46 mmol/L 06/24/19 13:01 Medications & Allergies - Medications Allergies/Adverse Reactions: Allergies No Known Allergies Allergy (Unverified 11/08/15 10:54) Home Medications: Home Medications Medication Instructions Recorded Confirmed Last Taken Type ASA/Calcium Carb/Mag/Aluminum 81 mg PO DAILY 06/24/19 06/24/19 06/23/19 History [Raymond Plus 500 mg Caplet] Abiraterone Acetate 250 mg PO DAILY 06/24/19 06/24/19 06/23/19 History AtorvaSTATin [Lipitor] 40 mg PO DAILY 06/24/19 06/24/19 06/23/19 History Degarelix (Nf) [Firmagon (Nf)] 240 mg SQ QMONTH 06/24/19 06/24/19 Unknown History Furosemide 20 mg PO DAILY 06/24/19 06/24/19 06/23/19 History Lisinopril [Zestril] 20 mg PO QDAY 06/24/19 06/24/19 06/23/19 History Ondansetron [Zofran ODT TAB] 8 mg PO Q8HR PRN 06/24/19 06/24/19 06/23/19 History Prednisone [predniSONE (Shy) ER 5 mg PO QDAY 06/24/19 06/24/19 06/23/19 History TAB] Active Medications: Generic Name Dose Route Start Last Admin Trade Name Freq PRN Reason Stop Dose Admin Acetaminophen 650 mg 06/23/19 22:57 Tylenol PO Q4H PRN Pain MILD(1-3)/Fever >100.5/MONTOYA Dextrose 50 ml 06/23/19 23:07 D50w (25gm) Syringe IV PRN PRN Hypoglycemia Norepinephrine 4 mg in 250 mls @ 7.5 mls/hr 06/24/19 13:00 06/25/19 06:45 Levophed Drip 4 Mg/Ns 250 Ml IV 0 mcg/min TITR ROBERTO 0 mls/hr Titration Protocol 2 MCG/MIN Sodium Bicarbonate 50 meq/ 1,050 mls @ 75 mls/hr 06/25/19 10:00 06/25/19 11:00 Dextrose IV 75 mls/hr DIRECT ROBERTO Administration Lorazepam 2 mg 06/23/19 23:06 Ativan IV Q1HR PRN CIWA-Ar 8-15 Lorazepam 4 mg 06/23/19 23:06 Ativan IV Q1HR PRN CIWA-Ar 16-25 Ondansetron HCl 4 mg 06/23/19 22:57 Zofran IV Q4H PRN Nausea And Vomiting Pantoprazole Sodium 40 mg 06/25/19 10:00 06/25/19 11:12 Protonix PO 40 mg BID ROBERTO Administration Sodium Chloride 10 ml 06/24/19 10:00 06/25/19 11:13 Sodium Chloride Flush Syringe 10 Ml IV 10 ml BID ROBERTO Administration Sodium Chloride 10 ml 06/23/19 22:57 Sodium Chloride Flush Syringe 10 Ml IV PRN PRN LINE FLUSH
--- NOTE | 2019-06-25 12:04 | Gastroenterology Progress Note ---
Assessment and Plan 1.UGIB/melena -H/H 8.7/25.8-stable s/p blood transfusion -continue to monitor H/H and transfuse as needed -no active signs of bleeding overnight or this am -s/p EGD 06/23/19 that showed 5mm actively bleeding PUD in antrum (s/p clip x 1 and epinephrine with good control of bleed after procedure but vessel large and high risk to rebleed), moderate blood/food in proximal stomach (unable to fully clear), and normal esophagus and duodenum -s/p repeat EGD yesterday (06/24) that showed ulcer mainly white based w/ pigmented area (1cm) antrum (no active bleeding), and multiple other small ulcers in antrum -etiology-likely PUD given ASA/Goodys/Prednisone use -clinically, patient is now HD stable off pressor support. Denies abd pain or N/V. Tolerating clears. 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 - Minimally mets, but has been recurrent after prostatectomy and casodex therapy. - Currently on antitestosterone meds, and prednisone - No pelvic/bladder disease on PET March 12.acute renal insufficiency - Unclear if dehydration, reaction to new meds, or obstructive; patient is making urine in the ER (minimal, less than 100ml) - Will defer to IMS service Subjective Date of service: 06/25/19 Principal diagnosis: GI bleed Interval history: Patient resting in bed this am w/o acute distress, now off pressor support. No active signs of bleeding overnight or this am. Objective - Constitutional Vitals: Temp Pulse Resp BP Pulse Ox 98.4 F 90 27 H 122/50 100 06/25/19 08:00 06/25/19 11:00 06/25/19 11:00 06/25/19 11:00 06/25/19 11:00 General appearance: no acute distress - EENT Eyes: PERRL, EOM intact ENT: hearing intact - Respiratory Respiratory effort: normal - Cardiovascular Rhythm: regular - Gastrointestinal General gastrointestinal: Present: soft, non-tender, non-distended, normal bowel sounds, other (+obese) - Neurologic Neurological: alert and oriented x3 - Labs CBC & Chem 7: 06/25/19 04:48 06/25/19 04:48 Labs: Laboratory Results - last 24 hr 06/23/19 06/24/19 06/24/19 19:23 13:01 13:01 Hgb Hct Sodium Potassium Chloride Carbon Dioxide Anion Gap BUN Creatinine Estimated GFR BUN/Creatinine Ratio Glucose POC Glucose Calcium TSH Free T4 Urine Color Straw Urine Turbidity Clear Urine pH 5.0 Ur Specific [place] 1.010 Urine Protein <15 mg/dl Urine Glucose (UA) Neg Urine Ketones Tr Urine Blood Lg Urine Nitrite Neg Urine Bilirubin Neg Urine Urobilinogen < 2.0 Ur Leukocyte Esterase Tr Urine WBC (Auto) 6.0 Urine RBC (Auto) 15.0 U Epithel Cells (Auto) < 1.0 Urine Mucus Few Urine Eosinophils Urine Creatinine 75.9 H Urine Sodium 46 Blood Type B NEGATIVE Antibody Screen Negative Crossmatch See Detail 06/24/19 06/24/19 06/24/19 13:01 17:52 18:08 Hgb 8.6 L Hct 26.9 L Sodium Potassium Chloride Carbon Dioxide Anion Gap BUN Creatinine Estimated GFR BUN/Creatinine Ratio Glucose POC Glucose 141 H Calcium TSH Free T4 Urine Color Urine Turbidity Urine pH Ur Specific [place] Urine Protein Urine Glucose (UA) Urine Ketones Urine Blood Urine Nitrite Urine Bilirubin Urine Urobilinogen Ur Leukocyte Esterase Urine WBC (Auto) Urine RBC (Auto) U Epithel Cells (Auto) Urine Mucus Urine Eosinophils None seen Urine Creatinine Urine Sodium Blood Type Antibody Screen Crossmatch 06/24/19 06/24/19 06/24/19 18:08 18:08 20:27 Hgb Hct Sodium Potassium Chloride Carbon Dioxide Anion Gap BUN Creatinine Estimated GFR BUN/Creatinine Ratio Glucose POC Glucose 141 H Calcium TSH 2.920 Free T4 1.31 Urine Color Urine Turbidity Urine pH Ur Specific [place] Urine Protein Urine Glucose (UA) Urine Ketones Urine Blood Urine Nitrite Urine Bilirubin Urine Urobilinogen Ur Leukocyte Esterase Urine WBC (Auto) Urine RBC (Auto) U Epithel Cells (Auto) Urine Mucus Urine Eosinophils Urine Creatinine Urine Sodium Blood Type Antibody Screen Crossmatch 06/24/19 06/24/19 06/25/19 21:51 23:32 03:54 Hgb 8.3 L Hct 24.7 L Sodium Potassium Chloride Carbon Dioxide Anion Gap BUN Creatinine Estimated GFR BUN/Creatinine Ratio Glucose POC Glucose 148 H 165 H Calcium TSH Free T4 Urine Color Urine Turbidity Urine pH Ur Specific [place] Urine Protein Urine Glucose (UA) Urine Ketones Urine Blood Urine Nitrite Urine Bilirubin Urine Urobilinogen Ur Leukocyte Esterase Urine WBC (Auto) Urine RBC (Auto) U Epithel Cells (Auto) Urine Mucus Urine Eosinophils Urine Creatinine Urine Sodium Blood Type Antibody Screen Crossmatch 06/25/19 06/25/19 06/25/19 04:48 04:48 07:56 Hgb 8.7 L Hct 25.8 L Sodium 147 H Potassium 3.8 Chloride 111.7 H Carbon Dioxide 21 L Anion Gap 18 BUN 88 H Creatinine 2.6 H Estimated GFR 29 BUN/Creatinine Ratio 34 Glucose 144 H POC Glucose 173 H Calcium 8.3 L TSH Free T4 Urine Color Urine Turbidity Urine pH Ur Specific [place] Urine Protein Urine Glucose (UA) Urine Ketones Urine Blood Urine Nitrite Urine Bilirubin Urine Urobilinogen Ur Leukocyte Esterase Urine WBC (Auto) Urine RBC (Auto) U Epithel Cells (Auto) Urine Mucus Urine Eosinophils Urine Creatinine Urine Sodium Blood Type Antibody Screen Crossmatch
--- NOTE | 2019-06-25 13:10 | Progress Note ---
Assessment and Plan Blood loss anemia - transfused 2 units of PRBC, monitor h/h - Hb 7.1 today - no active bleeding sign of Hypokalemia, cont to replete Hypernatremia, start hypotonic fluid GI bleed secondary to peptic ulcer disease, - status post clipping, GI following - s/p EGD overnight 06/23/19 that showed 5mm actively bleeding PUD in antrum (s/p clip x 1 and epinephrine with good control of bleed after procedure but vessel large and high risk to rebleed), moderate blood/food in proximal stomach (unable to fully clear), and normal esophagus and duodenum -etiology-likely PUD given ASA/Goodys/Prednisone use --s/p repeat EGD yesterday (06/24) that showed ulcer mainly white based w/ pigmented area (1cm) antrum (no active bleeding), and multiple other small ulcers in antrum -continue protonix iv -avoid NSAID -continue supportive care, advance diet -if rebleeds, will consult to IR for possible embolization Acute renal failure with metabolic acidosis - improving - likely from severe dehydration with ATN - cont iv fluid, s/p bicarbonate drip Hypovolumic shock, improving - cont iv fluid. 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 - Minimally mets, but has been recurrent after prostatectomy and casodex therapy. - Currently on antitestosterone meds, and prednisone - No pelvic/bladder disease on PET March Diabetes type 2, SSI for now DVT prophylaxis, SCD - full code, Poor prognosis Monitor at tele Brief History: 78-year-old man with a history of metastatic prostate cancer, hypertension, diabetes, venous insufficiency comes emergency room with complaints of back stool since June 19. He had 3 episodes of black stool and vomiting dark emesis on June 19, vomiting subsided but he continued to have black stools. Denies any NSAID use, is on aspirin, prednisone, chronic diuretic therapy. s/p EGD in the emergency room, and transfusion of 1 unit of blood, admitted for further mx Radiological data: CT abdomen/pelvis: 1. No acute abdominal or pelvic abnormality. 2. 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 Hospitalist Physical exam: GENERAL: well-developed obese AAM lying on bed appeared to be in no discomfort. HEENT: Normocephalic. Atraumatic. No conjunctival congestion or icterus. Patient has moist mucous membranes. NECK: Supple. Trachea midline. CHEST/LUNGS: Clear to auscultated bilaterally, breathing nonlabored. No wheezes crackles or rhonchi. HEART/CARDIOVASCULAR: Regular in rate and rhythm. S1 and S2 positive. + murmur on aortic area ABDOMEN: Abdomen is soft, nontender. Patient has normal bowel sounds. SKIN: There is no rash. Warm and dry. NEURO: No focal motor deficit. Follows command. MUSCULOSKELETAL: No joint effusion or tenderness. EXTRIMITY: No edema, no cyanosis or clubbing. PSYCH: Cooperative. Subjective Date of service: 06/25/19 Principal diagnosis: GI bleed Interval history: Patient seen and examined. Medical records and medication list reviewed. No acute event overnight noted by the RN. Patient denies any chest pain or difficulty breathing. Patient tolerating diet Blood pressure still labile, Hb 7.1 this am Discussed plan of care at bedside with patient and his daughter. Objective - Constitutional Vitals: Vital Signs - 12hr 06/25/19 06/25/19 06/25/19 02:00 03:00 03:55 Temperature 98.6 F Pulse Rate 95 H 109 H Pulse Rate [ Apical] Respiratory 14 21 Rate Blood Pressure 118/50 128/73 O2 Sat by Pulse 100 100 Oximetry 06/25/19 06/25/19 06/25/19 04:00 05:00 06:00 Temperature Pulse Rate 91 H 111 H 88 Pulse Rate [ 90 Apical] Respiratory 13 23 12 Rate Blood Pressure 128/73 112/57 129/63 O2 Sat by Pulse 100 100 100 Oximetry 06/25/19 06/25/19 06/25/19 07:00 08:00 08:04 Temperature 98.4 F Pulse Rate 93 H 90 Pulse Rate [ Apical] Respiratory 13 21 Rate Blood Pressure 107/50 106/54 O2 Sat by Pulse 100 100 100 Oximetry 06/25/19 06/25/19 06/25/19 09:00 10:00 11:00 Temperature Pulse Rate 85 94 H 90 Pulse Rate [ Apical] Respiratory 13 17 27 H Rate Blood Pressure 116/47 104/50 122/50 O2 Sat by Pulse 100 100 100 Oximetry 06/25/19 12:00 Temperature 98.2 F Pulse Rate 82 Pulse Rate [ Apical] Respiratory 12 Rate Blood Pressure 126/55 O2 Sat by Pulse 100 Oximetry - Labs CBC & Chem 7: 06/27/19 04:25 06/27/19 04:25 Labs: Abnormal lab results 06/23/19 06/24/19 06/24/19 Range/Units 19:23 13:01 17:52 Hgb (11.8-15.2) gm/dl Hct (35.5-45.6) % Sodium (137-145) mmol/L Chloride (98-107) mmol/L Carbon Dioxide (22-30) mmol/L BUN (9-20) mg/dL Creatinine (0.8-1.5) mg/dL Glucose (75-100) mg/dL POC Glucose 141 H (70-105) Calcium (8.4-10.2) mg/dL Urine Creatinine 75.9 H (0.1-20.0) mg/dL Crossmatch See Detail 06/24/19 06/24/19 06/24/19 Range/Units 18:08 20:27 21:51 Hgb 8.6 L 8.3 L (11.8-15.2) gm/dl Hct 26.9 L 24.7 L (35.5-45.6) % Sodium (137-145) mmol/L Chloride (98-107) mmol/L Carbon Dioxide (22-30) mmol/L BUN (9-20) mg/dL Creatinine (0.8-1.5) mg/dL Glucose (75-100) mg/dL POC Glucose 141 H (70-105) Calcium (8.4-10.2) mg/dL Urine Creatinine (0.1-20.0) mg/dL Crossmatch 06/24/19 06/25/19 06/25/19 Range/Units 23:32 03:54 04:48 Hgb 8.7 L (11.8-15.2) gm/dl Hct 25.8 L (35.5-45.6) % Sodium (137-145) mmol/L Chloride (98-107) mmol/L Carbon Dioxide (22-30) mmol/L BUN (9-20) mg/dL Creatinine (0.8-1.5) mg/dL Glucose (75-100) mg/dL POC Glucose 148 H 165 H (70-105) Calcium (8.4-10.2) mg/dL Urine Creatinine (0.1-20.0) mg/dL Crossmatch 06/25/19 06/25/19 06/25/19 Range/Units 04:48 07:56 12:03 Hgb (11.8-15.2) gm/dl Hct (35.5-45.6) % Sodium 147 H (137-145) mmol/L Chloride 111.7 H (98-107) mmol/L Carbon Dioxide 21 L (22-30) mmol/L BUN 88 H (9-20) mg/dL Creatinine 2.6 H (0.8-1.5) mg/dL Glucose 144 H (75-100) mg/dL POC Glucose 173 H 180 H (70-105) Calcium 8.3 L (8.4-10.2) mg/dL Urine Creatinine (0.1-20.0) mg/dL Crossmatch
[2019-06-25 20:46] LABS: Hematocrit 25.1 % (35.5-45.6); Hemoglobin 8.4 gm/dl (11.8-15.2)
[2019-06-25 22:59] LABS: Hematocrit 22.2 % (35.5-45.6); Hemoglobin 7.7 gm/dl (11.8-15.2)
--- NOTE | 2019-06-26 00:14 | Ultrasound Report ---
ULTRASOUND RENAL INDICATION: renal failure. COMPARISON: No relevant prior imaging study available. FINDINGS: RIGHT KIDNEY: Size: 10.7 cm. Echogenicity: Normal. Cortical thickness: Normal. Stones: None. Hydronephrosis: None. Cyst or mass: None. LEFT KIDNEY: Size: 11.4 cm. Echogenicity: Normal. Cortical thickness: Normal. Stones: None. Hydronephrosis: None. Cyst or mass: None. Urinary Bladder: No significant abnormality. Free Fluid: None. Additional Findings: None. IMPRESSION 1. No acute sonographic abnormality of the kidneys. Signer Name: Ryan Iglesias MD Signed: 06/26/2019 12:09 AM Workstation Name: [id number]
[2019-06-26 05:31] LABS: Hemoglobin 7.1 gm/dl (11.8-15.2)
[2019-06-26 05:54] LABS: Calcium 7.8 mg/dL (8.4-10.2)
[2019-06-26] MEDS: SODIUM CHLORIDE FLUSH SYRINGE 10 ML IV SCH ×2 (10:04→21:14)
[2019-06-26] MEDS: PROTONIX PO SCH ×2 (10:04→21:14)
[2019-06-26] MEDS: D5NS 0.2% 1,000 ML IV SCH (10:53)
--- NOTE | 2019-06-26 11:21 | Gastroenterology Progress Note ---
Assessment and Plan 1.UGIB/melena -H/H 7.1/21.0- slight trend down -continue to monitor H/H and transfuse as needed -no active signs of bleeding overnight or this am -s/p EGD 06/23/19 that showed 5mm actively bleeding PUD in antrum (s/p clip x 1 and epinephrine with good control of bleed after procedure but vessel large and high risk to rebleed), moderate blood/food in proximal stomach (unable to fully clear), and normal esophagus and duodenum -s/p repeat EGD 06/24/19 that showed ulcer mainly white based w/ pigmented area (1cm) antrum (no active bleeding), and multiple other small ulcers in antrum -etiology-likely PUD given ASA/Goodys/Prednisone use -clinically, patient is stable. Denies abd pain or N/V. Tolerating diet. 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 - Minimally mets, but has been recurrent after prostatectomy and casodex therapy. - Currently on antitestosterone meds, and prednisone - No pelvic/bladder disease on PET March 12.acute renal insufficiency - Unclear if dehydration, reaction to new meds, or obstructive; patient is making urine in the ER (minimal, less than 100ml) - Will defer to IMS service Subjective Date of service: 06/26/19 Principal diagnosis: GI bleed Interval history: No acute distress, GI complaints, or active signs of bleeding overnight or this am. Tolerating diet. Objective - Constitutional Vitals: Temp Pulse Resp BP Pulse Ox 99.1 F 91 H 20 104/47 98 06/26/19 07:48 06/26/19 10:00 06/26/19 07:48 06/26/19 10:58 06/26/19 11:12 General appearance: no acute distress - EENT Eyes: PERRL, EOM intact ENT: hearing intact - Respiratory Respiratory effort: normal - Cardiovascular Rhythm: regular - Gastrointestinal General gastrointestinal: Present: soft, non-tender, non-distended, normal bowel sounds - Neurologic Neurological: alert and oriented x3 - Labs CBC & Chem 7: 06/26/19 04:13 06/26/19 04:13 Labs: Laboratory Results - last 24 hr 06/25/19 06/25/19 06/25/19 12:03 17:30 20:15 Hgb 8.4 L Hct 25.1 L Sodium Potassium Chloride Carbon Dioxide Anion Gap BUN Creatinine Estimated GFR BUN/Creatinine Ratio Glucose POC Glucose 180 H 160 H Calcium 06/25/19 06/25/19 06/26/19 22:22 22:34 01:40 Hgb 7.7 L Hct 22.2 L Sodium Potassium Chloride Carbon Dioxide Anion Gap BUN Creatinine Estimated GFR BUN/Creatinine Ratio Glucose POC Glucose 174 H 156 H Calcium 06/26/19 06/26/19 06/26/19 04:13 04:13 06:25 Hgb 7.1 L Hct 21.0 L Sodium 150 H Potassium 3.3 L Chloride 111.3 H Carbon Dioxide 28 D Anion Gap 14 BUN 57 H Creatinine 1.6 H Estimated GFR 51 BUN/Creatinine Ratio 36 Glucose 135 H POC Glucose 168 H Calcium 7.8 L
--- NOTE | 2019-06-26 12:32 | XRay Report ---
CHEST 1 VIEW INDICATION: Shortness of breath. COMPARISON: None FINDINGS: Support devices: None. Heart: Within normal limits. Lungs/Pleura: No acute air space or interstitial disease. Additional findings: None. IMPRESSION: No acute findings. Signer Name: Ross Roberts Jr, MD Signed: 06/26/2019 12:27 PM Workstation Name: [id number]
--- NOTE | 2019-06-26 12:52 | Progress Note ---
Assessment and Plan Acute GI bleed secondary to peptic ulcer disease Acute renal failure metabolic acidosis Blood loss anemia Hypovolemic shock Prostate cancer metastatic to bone Diabetes type 2 Hypernatremia Hypokalemia - continue to wean supplemental oxygen to keep O2 sat's > 90% - s/p EGD with clipping; no active bleeding (Large vessel and high risk to rebleed) - continue PPI therapy - avoid NSASID's / antiplatelet drugs - continue gentle volume resuscitation - S/P 2 units PRBC's this admission - continue glycemic control with SSI for target BG < 180 mg/dl - continue Prostate CA management per Heme/Onc team - VTE prophylaxis with SCD's - outpatient sleep study recommended to patient and daughter - continue other care per attending / other consultants ... re-evaluate in am & prn CODE STATUS: FULL PROGNOSIS: POOR Subjective Date of service: 06/26/19 Principal diagnosis: Ac. GI bleed; PUD; ZAKIYA; ABLA; Hypovolemic Shock; Prostate cancer; DM II Interval history: Patient is seen today for: Acute GI bleed; PUD; ZAKIYA; Acute Metabolic acidosis; Acute Blood loss anemia; Hypovolemic shock; Prostate cancer metastatic to bone; Diabetes type 2 Seen and examined at bedside; 24hour events reviewed; nursing and respiratory care staff consulted; no adverse overnight events reported to me; resting peacefully in bed; feels better; denies acute chest pains or palpitations; NO N/V/F/C Objective Vital Signs - 12hr 06/26/19 06/26/19 06/26/19 03:32 07:48 10:00 Temperature 99.3 F 99.1 F Pulse Rate 86 91 H 91 H Respiratory 18 20 Rate Blood Pressure 98/53 98/51 O2 Sat by Pulse 98 98 Oximetry 06/26/19 06/26/19 10:58 11:12 Temperature Pulse Rate Respiratory Rate Blood Pressure 104/47 O2 Sat by Pulse 98 Oximetry Constitutional: alert, appears uncomfortable, other (elderly looking obese AAM, normocep[halic and atraumatic with mildly increased resp effort at rest) Eyes: non-icteric ENT: oropharynx moist, other (Mallampati 4) Neck: supple, no lymphadenopathy, no JVD, other (large neck circumference) Effort: mildly labored Ascultation: Bilateral: clear, diminished breath sounds Percussion: Bilateral: not dull Cardiovascular: regular rate and rhythm Gastrointestinal: normoactive bowel sounds, soft, non-tender, other (protuberant) Integumentary: normal Extremities: no cyanosis, no edema, pulses normal, no ischemia or petechiae Neurologic: normal mental status, non-focal exam, pupils equal and round, motor strength normal and Psychiatric: mood appropriate, affect normal CBC and BMP: 06/27/19 09:44 06/27/19 04:25 ABG, PT/INR, D-dimer: PT/INR, D-dimer PT 13.7 Sec. (12.2-14.9) 06/23/19 17:49 INR 1.08 (0.87-1.13) 06/23/19 17:49 Abnormal lab findings: Abnormal Labs 06/23/19 06/23/19 06/23/19 17:49 17:49 18:21 RBC 2.18 L Hgb 7.5 L Hct 22.9 L MCV 105 H MCH 35 H RDW Plt Count Lymph % (Auto) 6.2 L [place] % (Auto) 9.6 H Lymph # 0.6 L [place] # 0.9 H Seg Neutrophils % 83.9 H Seg Neuts % (Manual) Lymphocytes % (Manual) Monocytes % (Manual) Lymphocytes # (Manual) Monocytes # (Manual) Sodium Potassium Chloride Carbon Dioxide 19 L BUN 149 H Creatinine 6.0 H Glucose 174 H POC Glucose 199 H Uric Acid Calcium Total Creatine Kinase Urine Creatinine Crossmatch 06/23/19 06/23/19 06/24/19 19:23 23:25 04:17 RBC 2.33 L Hgb 9.5 L 7.9 L Hct 28.0 L 23.8 L MCV 102 H MCH 34 H RDW 16.3 H Plt Count 135 L Lymph % (Auto) [place] % (Auto) Lymph # [place] # Seg Neutrophils % Seg Neuts % (Manual) 79.0 H Lymphocytes % (Manual) 7.0 L Monocytes % (Manual) 12.0 H Lymphocytes # (Manual) 0.6 L Monocytes # (Manual) 1.1 H Sodium Potassium Chloride Carbon Dioxide BUN Creatinine Glucose POC Glucose Uric Acid Calcium Total Creatine Kinase Urine Creatinine Crossmatch See Detail 06/24/19 06/24/19 06/24/19 04:17 04:17 07:54 RBC Hgb Hct MCV MCH RDW Plt Count Lymph % (Auto) [place] % (Auto) Lymph # [place] # Seg Neutrophils % Seg Neuts % (Manual) Lymphocytes % (Manual) Monocytes % (Manual) Lymphocytes # (Manual) Monocytes # (Manual) Sodium Potassium Chloride Carbon Dioxide 20 L BUN 132 H Creatinine 4.8 H Glucose 113 H POC Glucose 120 H Uric Acid 12.0 H Calcium 8.1 L Total Creatine Kinase 186 H Urine Creatinine Crossmatch 06/24/19 06/24/19 06/24/19 13:01 17:52 18:08 RBC Hgb 8.6 L Hct 26.9 L MCV MCH RDW Plt Count Lymph % (Auto) [place] % (Auto) Lymph # [place] # Seg Neutrophils % Seg Neuts % (Manual) Lymphocytes % (Manual) Monocytes % (Manual) Lymphocytes # (Manual) Monocytes # (Manual) Sodium Potassium Chloride Carbon Dioxide BUN Creatinine Glucose POC Glucose 141 H Uric Acid Calcium Total Creatine Kinase Urine Creatinine 75.9 H Crossmatch 06/24/19 06/24/19 06/24/19 20:27 21:51 23:32 RBC Hgb 8.3 L Hct 24.7 L MCV MCH RDW Plt Count Lymph % (Auto) [place] % (Auto) Lymph # [place] # Seg Neutrophils % Seg Neuts % (Manual) Lymphocytes % (Manual) Monocytes % (Manual) Lymphocytes # (Manual) Monocytes # (Manual) Sodium Potassium Chloride Carbon Dioxide BUN Creatinine Glucose POC Glucose 141 H 148 H Uric Acid Calcium Total Creatine Kinase Urine Creatinine Crossmatch 06/25/19 06/25/19 06/25/19 03:54 04:48 04:48 RBC Hgb 8.7 L Hct 25.8 L MCV MCH RDW Plt Count Lymph % (Auto) [place] % (Auto) Lymph # [place] # Seg Neutrophils % Seg Neuts % (Manual) Lymphocytes % (Manual) Monocytes % (Manual) Lymphocytes # (Manual) Monocytes # (Manual) Sodium 147 H Potassium Chloride 111.7 H Carbon Dioxide 21 L BUN 88 H Creatinine 2.6 H Glucose 144 H POC Glucose 165 H Uric Acid Calcium 8.3 L Total Creatine Kinase Urine Creatinine Crossmatch 06/25/19 06/25/19 06/25/19 07:56 12:03 17:30 RBC Hgb Hct MCV MCH RDW Plt Count Lymph % (Auto) [place] % (Auto) Lymph # [place] # Seg Neutrophils % Seg Neuts % (Manual) Lymphocytes % (Manual) Monocytes % (Manual) Lymphocytes # (Manual) Monocytes # (Manual) Sodium Potassium Chloride Carbon Dioxide BUN Creatinine Glucose POC Glucose 173 H 180 H 160 H Uric Acid Calcium Total Creatine Kinase Urine Creatinine Crossmatch 06/25/19 06/25/19 06/25/19 20:15 22:22 22:34 RBC Hgb 8.4 L 7.7 L Hct 25.1 L 22.2 L MCV MCH RDW Plt Count Lymph % (Auto) [place] % (Auto) Lymph # [place] # Seg Neutrophils % Seg Neuts % (Manual) Lymphocytes % (Manual) Monocytes % (Manual) Lymphocytes # (Manual) Monocytes # (Manual) Sodium Potassium Chloride Carbon Dioxide BUN Creatinine Glucose POC Glucose 174 H Uric Acid Calcium Total Creatine Kinase Urine Creatinine Crossmatch 06/26/19 06/26/19 06/26/19 01:40 04:13 04:13 RBC Hgb 7.1 L Hct 21.0 L MCV MCH RDW Plt Count Lymph % (Auto) [place] % (Auto) Lymph # [place] # Seg Neutrophils % Seg Neuts % (Manual) Lymphocytes % (Manual) Monocytes % (Manual) Lymphocytes # (Manual) Monocytes # (Manual) Sodium 150 H Potassium 3.3 L Chloride 111.3 H Carbon Dioxide BUN 57 H Creatinine 1.6 H Glucose 135 H POC Glucose 156 H Uric Acid Calcium 7.8 L Total Creatine Kinase Urine Creatinine Crossmatch 06/26/19 06/26/19 06:25 11:27 RBC Hgb Hct MCV MCH RDW Plt Count Lymph % (Auto) [place] % (Auto) Lymph # [place] # Seg Neutrophils % Seg Neuts % (Manual) Lymphocytes % (Manual) Monocytes % (Manual) Lymphocytes # (Manual) Monocytes # (Manual) Sodium Potassium Chloride Carbon Dioxide BUN Creatinine Glucose POC Glucose 168 H 183 H Uric Acid Calcium Total Creatine Kinase Urine Creatinine Crossmatch Allied health notes reviewed: nursing
[2019-06-26] MEDS: DUONEB *Not for PRN Use IH SCH ×2 (15:23→20:14)
[2019-06-26 15:38] LABS: Hemoglobin 7.9 gm/dl (11.8-15.2)
--- NOTE | 2019-06-26 16:11 | Progress Note ---
Assessment and Plan Acute renal failure with metabolic acidosis - improving - likely from severe dehydration with ATN - cont iv fluid with bicarbonate drip Blood loss anemia - transfused 2 units of PRBC, monitor h/h - no active bleeding sign of Hypokalemia, cont to replete Hypernatremia, start hypotonic fluid GI bleed secondary to peptic ulcer disease, - status post clipping, GI following - s/p EGD overnight 06/23/19 that showed 5mm actively bleeding PUD in antrum (s/p clip x 1 and epinephrine with good control of bleed after procedure but vessel large and high risk to rebleed), moderate blood/food in proximal stomach (unable to fully clear), and normal esophagus and duodenum -etiology-likely PUD given ASA/Goodys/Prednisone use --s/p repeat EGD (06/24) that showed ulcer mainly white based w/ pigmented area (1cm) antrum (no active bleeding), and multiple other small ulcers in antrum -continue protonix iv -avoid NSAID -continue supportive care, advance diet -if rebleeds, will consult to IR for possible embolization Hypovolumic shock - cont iv fluid. 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 - Minimally mets, but has been recurrent after prostatectomy and casodex therapy. - Currently on antitestosterone meds, and prednisone - No pelvic/bladder disease on PET March Diabetes type 2, SSI for now DVT prophylaxis, SCD - full code, Poor prognosis Transfer out of ICU today Brief History: 78-year-old man with a history of metastatic prostate cancer, hypertension, diabetes, venous insufficiency comes emergency room with complaints of back stool since June 19. He had 3 episodes of black stool and vomiting dark emesis on June 19, vomiting subsided but he continued to have black stools. Denies any NSAID use, is on aspirin, prednisone, chronic diuretic therapy. s/p EGD in the emergency room, and transfusion of 1 unit of blood, admitted for further mx Radiological data: CT abdomen/pelvis: 1. No acute abdominal or pelvic abnormality. 2. 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 Hospitalist Physical exam: GENERAL: well-developed obese AAM lying on bed appeared to be in no discomfort. HEENT: Normocephalic. Atraumatic. No conjunctival congestion or icterus. Patient has moist mucous membranes. NECK: Supple. Trachea midline. CHEST/LUNGS: Clear to auscultated bilaterally, breathing nonlabored. No wheezes crackles or rhonchi. HEART/CARDIOVASCULAR: Regular in rate and rhythm. S1 and S2 positive. + murmur on aortic area ABDOMEN: Abdomen is soft, nontender. Patient has normal bowel sounds. SKIN: There is no rash. Warm and dry. NEURO: No focal motor deficit. Follows command. MUSCULOSKELETAL: No joint effusion or tenderness. EXTRIMITY: No edema, no cyanosis or clubbing. PSYCH: Cooperative. Subjective Date of service: 06/26/19 Principal diagnosis: Ac. GI bleed; PUD; ZAKIYA; ABLA; Hypovolemic Shock; Prostate cancer; DM II Interval history: Patient seen and examined. Medical records and medication list reviewed. No acute event overnight noted by the RN. Patient denies any chest pain or difficulty breathing. Patient tolerating diet Blood pressure still labile w/o iv fluid Discussed plan of care at bedside with patient and his daughter. Objective - Constitutional Vitals: Vital Signs - 12hr 06/26/19 06/26/19 06/26/19 07:48 10:00 10:58 Temperature 99.1 F Pulse Rate 91 H 91 H Pulse Rate [ Anterior Bilateral Throughout] Respiratory 20 Rate Respiratory Rate [Anterior Bilateral Throughout] Blood Pressure 98/51 104/47 O2 Sat by Pulse 98 Oximetry 06/26/19 06/26/19 06/26/19 11:12 15:48 15:54 Temperature Pulse Rate Pulse Rate [ 89 Anterior Bilateral Throughout] Respiratory Rate Respiratory 17 Rate [Anterior Bilateral Throughout] Blood Pressure O2 Sat by Pulse 98 95 Oximetry - Labs CBC & Chem 7: 06/27/19 09:44 06/27/19 04:25 Labs: Abnormal lab results 06/25/19 06/25/19 06/25/19 Range/Units 17:30 20:15 22:22 Hgb 8.4 L (11.8-15.2) gm/dl Hct 25.1 L (35.5-45.6) % Sodium (137-145) mmol/L Potassium (3.6-5.0) mmol/L Chloride (98-107) mmol/L BUN (9-20) mg/dL Creatinine (0.8-1.5) mg/dL Glucose (75-100) mg/dL POC Glucose 160 H 174 H (70-105) Calcium (8.4-10.2) mg/dL 06/25/19 06/26/19 06/26/19 Range/Units 22:34 01:40 04:13 Hgb 7.7 L 7.1 L (11.8-15.2) gm/dl Hct 22.2 L 21.0 L (35.5-45.6) % Sodium (137-145) mmol/L Potassium (3.6-5.0) mmol/L Chloride (98-107) mmol/L BUN (9-20) mg/dL Creatinine (0.8-1.5) mg/dL Glucose (75-100) mg/dL POC Glucose 156 H (70-105) Calcium (8.4-10.2) mg/dL 06/26/19 06/26/19 06/26/19 Range/Units 04:13 06:25 11:27 Hgb (11.8-15.2) gm/dl Hct (35.5-45.6) % Sodium 150 H (137-145) mmol/L Potassium 3.3 L (3.6-5.0) mmol/L Chloride 111.3 H (98-107) mmol/L BUN 57 H (9-20) mg/dL Creatinine 1.6 H (0.8-1.5) mg/dL Glucose 135 H (75-100) mg/dL POC Glucose 168 H 183 H (70-105) Calcium 7.8 L (8.4-10.2) mg/dL 06/26/19 Range/Units 14:55 Hgb 7.9 L (11.8-15.2) gm/dl Hct 24.0 L (35.5-45.6) % Sodium (137-145) mmol/L Potassium (3.6-5.0) mmol/L Chloride (98-107) mmol/L BUN (9-20) mg/dL Creatinine (0.8-1.5) mg/dL Glucose (75-100) mg/dL POC Glucose (70-105) Calcium (8.4-10.2) mg/dL
[2019-06-27] MEDS: D5NS 0.2% 1,000 ML IV SCH ×2 (00:25→20:27)
[2019-06-27 04:43] LABS: Basophils % (Auto) 0.3 % (0.0-1.8); Eosinophils # (Auto) 0.2 K/mm3 (0.0-0.4); Eosinophils % (Auto) 3.3 % (0.0-4.3); Hematocrit 21.1 % (35.5-45.6); Hemoglobin 7.1 gm/dl (11.8-15.2); Lymphocytes # (Auto) 0.5 K/mm3 (1.2-5.4); Lymphocytes % (Auto) 7.4 % (13.4-35.0); Mean Corpuscular HGB Conc 34 % (32-34); Mean Corpuscular Volume 99 fl (84-94); Monocytes # (Auto) 0.7 K/mm3 (0.0-0.8); Monocytes % (Auto) 11.3 % (0.0-7.3); Platelet Count 126 K/mm3 (140-440); Red Blood Count 2.12 M/mm3 (3.65-5.03); Red Cell Distribution Width 18.5 % (13.2-15.2)
[2019-06-27 05:34] LABS: BUN/Creatinine Ratio 29; Blood Urea Nitrogen 38 mg/dL (9-20); Calcium 7.8 mg/dL (8.4-10.2); Hemolysis Index 3
[2019-06-27] MEDS: DUONEB *Not for PRN Use IH SCH ×3 (07:35→20:41)
[2019-06-27] MEDS ORDERED: D50W (25GM) Syringe IV PRN (08:00)
--- NOTE | 2019-06-27 09:56 | Gastroenterology Progress Note ---
Assessment and Plan 1.UGIB/melena -H/H 7.09/30.-stable -continue to monitor H/H and transfuse as needed -no active signs of bleeding overnight or this am -s/p EGD 06/23/19 that showed 5mm actively bleeding PUD in antrum (s/p clip x 1 and epinephrine with good control of bleed after procedure but vessel large and high risk to rebleed), moderate blood/food in proximal stomach (unable to fully clear), and normal esophagus and duodenum -s/p repeat EGD 06/24/19 that showed ulcer mainly white based w/ pigmented area (1cm) antrum (no active bleeding), and multiple other small ulcers in antrum -etiology-likely PUD given ASA/Goodys/Prednisone use -clinically, patient is stable. Denies abd pain or N/V. Tolerating diet. -continue PPI BID -avoid NSAID -continue supportive care -patient okay to be d/c per GI standpoint on high dose PPI with f/u in clinic ~ 2 weeks (appt already scheduled per family) -will sign off, please call if needed 2.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 - Minimally mets, but has been recurrent after prostatectomy and casodex therapy. - Currently on antitestosterone meds, and prednisone - No pelvic/bladder disease on PET March 3.acute renal insufficiency - Unclear if dehydration, reaction to new meds, or obstructive; patient is making urine in the ER (minimal, less than 100ml) - Will defer to IMS service Subjective Date of service: 06/27/19 Principal diagnosis: GI bleed Interval history: No acute distress, GI complaints, or active signs of bleeding overnight or this am. Tolerating diet. Objective - Constitutional Vitals: Temp Pulse Resp BP Pulse Ox 98.6 F 113 H 20 117/49 96 06/27/19 08:14 06/27/19 08:14 06/27/19 08:14 06/27/19 08:14 06/27/19 08:14 General appearance: no acute distress - EENT Eyes: PERRL, EOM intact ENT: hearing intact - Cardiovascular Rhythm: regular - Gastrointestinal General gastrointestinal: Present: soft, non-tender, non-distended, normal bowel sounds - Neurologic Neurological: alert and oriented x3 - Labs CBC & Chem 7: 06/27/19 04:25 06/27/19 04:25 Labs: Laboratory Results - last 24 hr 06/26/19 06/26/19 06/26/19 11:27 14:55 16:54 WBC RBC Hgb 7.9 L Hct 24.0 L MCV MCH MCHC RDW Plt Count Lymph % (Auto) [place] % (Auto) Eos % (Auto) Baso % (Auto) Lymph # [place] # Eos # Baso # Seg Neutrophils % Seg Neutrophils # Sodium Potassium Chloride Carbon Dioxide Anion Gap BUN Creatinine Estimated GFR BUN/Creatinine Ratio Glucose POC Glucose 183 H 175 H Calcium 06/27/19 06/27/19 04:25 04:25 WBC 6.1 RBC 2.12 L Hgb 7.1 L Hct 21.1 L MCV 99 H MCH 33 H MCHC 34 RDW 18.5 H Plt Count 126 L Lymph % (Auto) 7.4 L [place] % (Auto) 11.3 H Eos % (Auto) 3.3 Baso % (Auto) 0.3 Lymph # 0.5 L [place] # 0.7 Eos # 0.2 Baso # 0.0 Seg Neutrophils % 77.7 H Seg Neutrophils # 4.8 Sodium 148 H Potassium 3.0 L Chloride 109.6 H Carbon Dioxide 26 Anion Gap 15 BUN 38 H Creatinine 1.3 Estimated GFR > 60 BUN/Creatinine Ratio 29 Glucose 139 H POC Glucose Calcium 7.8 L
[2019-06-27] MEDS ORDERED: K-DUR PO ONE ×2 (10:00→13:24)
[2019-06-27] MEDS: PROTONIX PO SCH ×2 (10:00→22:03)
[2019-06-27 10:02] LABS: Hematocrit 22.3 % (35.5-45.6); Hemoglobin 7.6 gm/dl (11.8-15.2)
[2019-06-27] MEDS: SODIUM CHLORIDE FLUSH SYRINGE 10 ML IV SCH ×2 (10:04→22:04)
--- NOTE | 2019-06-27 11:59 | Progress Note ---
Subjective Principal diagnosis: GI bleed Interval history: Patient was seen today for follow-up of multiple renal related issues feeling much better Wants to go home Daughter at bedside Interdisciplinary notes that also reviewed Events of 24 hours vitals labs intake output medications were reviewed Past medical history: Reviewed Family history: Reviewed Social history: Reviewed Allergies: Reviewed Physical examination: Vitals: Reviewed HEENT: No pallor or icterus oral mucosa moist Neck: Supple no JVD no thyromegaly Chest: Bilateral clear to auscultation anteriorly Heart: Regular rate and rhythm S1-S2 heard no S3-S4 Abdomen: Soft nontender no voluntary guarding rigidity rebound Extremity: Dry skin less than 1+ peripheral edema Psychiatric: No evidence of agitation and aggression noted Dermatology: No petechial rashes Labs and x-rays: Reviewed from today Assessment and plan Acute renal failure, creatinine is currently normalized to 1.3 which was 2.6 on June 25, ultrasonogram unremarkable Mild hypernatremia patient advised to increase oral intake of liquid Hypokalemia being replaced by IMS service Discussed with Dr. Amaral , and be considered for discharge tomorrow when potassium is better Metabolic acidosis currently improved Overall stable from renal standpoint Be seen in the office for follow-up next week We'll sign off the case please call if needed Objective - Vital Signs Vital signs: Vital Signs - 12hr 06/27/19 06/27/19 06/27/19 01:00 04:38 07:36 Temperature 98.1 F Pulse Rate 78 95 H Pulse Rate [ 88 Anterior Bilateral Throughout] Respiratory 18 Rate Respiratory 18 Rate [Anterior Bilateral Throughout] Blood Pressure 97/43 O2 Sat by Pulse 99 Oximetry 06/27/19 06/27/19 06/27/19 07:37 08:14 11:14 Temperature 98.6 F Pulse Rate 113 H Pulse Rate [ Anterior Bilateral Throughout] Respiratory 20 Rate Respiratory Rate [Anterior Bilateral Throughout] Blood Pressure 117/49 O2 Sat by Pulse 95 96 95 Oximetry 06/27/19 11:46 Temperature 98.0 F Pulse Rate Pulse Rate [ Anterior Bilateral Throughout] Respiratory 18 Rate Respiratory Rate [Anterior Bilateral Throughout] Blood Pressure 132/57 O2 Sat by Pulse Oximetry - Lab 06/27/19 09:44 06/27/19 04:25 Most recent lab results Calcium 7.8 mg/dL (8.4-10.2) L 06/27/19 04:25 Urine Creatinine 75.9 mg/dL (0.1-20.0) H 06/24/19 13:01 Urine Sodium 46 mmol/L 06/24/19 13:01 Medications & Allergies - Medications Allergies/Adverse Reactions: Allergies No Known Allergies Allergy (Unverified 11/08/15 10:54) Home Medications: Home Medications Medication Instructions Recorded Confirmed Last Taken Type ASA/Calcium Carb/Mag/Aluminum 81 mg PO DAILY 06/24/19 06/24/19 06/23/19 History [Raymond Plus 500 mg Caplet] Abiraterone Acetate 250 mg PO DAILY 06/24/19 06/24/19 06/23/19 History AtorvaSTATin [Lipitor] 40 mg PO DAILY 06/24/19 06/24/19 06/23/19 History Degarelix (Nf) [Firmagon (Nf)] 240 mg SQ QMONTH 06/24/19 06/24/19 Unknown History Furosemide 20 mg PO DAILY 06/24/19 06/24/19 06/23/19 History Lisinopril [Zestril] 20 mg PO QDAY 06/24/19 06/24/19 06/23/19 History Ondansetron [Zofran ODT TAB] 8 mg PO Q8HR PRN 06/24/19 06/24/19 06/23/19 History Prednisone [predniSONE (Shy) ER 5 mg PO QDAY 06/24/19 06/24/19 06/23/19 History TAB] Active Medications: Generic Name Dose Route Start Last Admin Trade Name Freq PRN Reason Stop Dose Admin Acetaminophen 650 mg 06/23/19 22:57 Tylenol PO Q4H PRN Pain MILD(1-3)/Fever >100.5/MONTOYA Albuterol/Ipratropium 1 ampul 06/27/19 08:00 06/27/19 07:35 Duoneb *Not For Prn Use* IH 1 ampul TIDRT ROBERTO Administration Dextrose 50 ml 06/27/19 08:00 D50w (25gm) Syringe IV Q1H PRN Hypoglycemia Dextrose/Sodium Chloride 1,000 mls @ 75 mls/hr 06/26/19 10:00 06/27/19 00:25 D5ns 0.2% IV 75 mls/hr DIRECT ROBERTO Administration Lorazepam 2 mg 06/23/19 23:06 Ativan IV Q1HR PRN CIWA-Ar 8-15 Lorazepam 4 mg 06/23/19 23:06 Ativan IV Q1HR PRN CIWA-Ar 16-25 Ondansetron HCl 4 mg 06/23/19 22:57 Zofran IV Q4H PRN Nausea And Vomiting Pantoprazole Sodium 40 mg 06/25/19 10:00 06/27/19 10:00 Protonix PO 40 mg BID ROBERTO Administration Sodium Chloride 10 ml 06/24/19 10:00 06/27/19 10:04 Sodium Chloride Flush Syringe 10 Ml IV 10 ml BID ROBERTO Administration Sodium Chloride 10 ml 06/23/19 22:57 Sodium Chloride Flush Syringe 10 Ml IV PRN PRN LINE FLUSH
[2019-06-27] MEDS ORDERED: NACL 0.9% 500 ML 500 ML IV SCH (12:20)
--- NOTE | 2019-06-27 12:24 | Progress Note ---
Assessment and Plan Acute renal failure with metabolic acidosis - improving - likely from severe dehydration with ATN - cont iv fluid with bicarbonate drip Blood loss anemia - transfused 1 unit of PRBC, monitor h/h - no sign of active bleeding - considering underlying malignancy and degree of anemia with labile BP will transfuse another unit of PRBC Hypokalemia, cont to replete Hypernatremia, started hypotonic fluid, cont to monitor GI bleed secondary to peptic ulcer disease, - status post clipping, GI following - s/p EGD overnight 06/23/19 that showed 5mm actively bleeding PUD in antrum (s/p clip x 1 and epinephrine with good control of bleed after procedure but vessel large and high risk to rebleed), moderate blood/food in proximal stomach (unable to fully clear), and normal esophagus and duodenum -etiology-likely PUD given ASA/Goodys/Prednisone use --s/p repeat EGD (06/24) that showed ulcer mainly white based w/ pigmented area (1cm) antrum (no active bleeding), and multiple other small ulcers in antrum -continue protonix iv -avoid NSAID -continue supportive care, advance diet -if rebleeds, will consult to IR for possible embolization Hypovolumic shock - cont iv fluid. 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 - Minimally mets, but has been recurrent after prostatectomy and casodex therapy. - Currently on antitestosterone meds, and prednisone - No pelvic/bladder disease on PET March Diabetes type 2, SSI for now DVT prophylaxis, SCD - full code, Poor prognosis Transfer out of ICU today Brief History: 78-year-old man with a history of metastatic prostate cancer, hypertension, diabetes, venous insufficiency comes emergency room with complaints of back stool since June 19. He had 3 episodes of black stool and vomiting dark emesis on June 19, vomiting subsided but he continued to have black stools. Denies any NSAID use, is on aspirin, prednisone, chronic diuretic therapy. s/p EGD in the emergency room, and transfusion of 1 unit of blood, admitted for further mx Radiological data: CT abdomen/pelvis: 1. No acute abdominal or pelvic abnormality. 2. 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 Hospitalist Physical exam: GENERAL: well-developed obese AAM lying on bed appeared to be in no discomfort. HEENT: Normocephalic. Atraumatic. No conjunctival congestion or icterus. Patient has moist mucous membranes. NECK: Supple. Trachea midline. CHEST/LUNGS: Clear to auscultated bilaterally, breathing nonlabored. No wheezes crackles or rhonchi. HEART/CARDIOVASCULAR: Regular in rate and rhythm. S1 and S2 positive. + murmur on aortic area ABDOMEN: Abdomen is soft, nontender. Patient has normal bowel sounds. SKIN: There is no rash. Warm and dry. NEURO: No focal motor deficit. Follows command. MUSCULOSKELETAL: No joint effusion or tenderness. EXTRIMITY: No edema, no cyanosis or clubbing. PSYCH: Cooperative. Subjective Date of service: 06/27/19 Principal diagnosis: Ac. GI bleed; PUD; ZAKIYA; ABLA; Hypovolemic Shock; Prostate cancer; DM II Interval history: Patient seen and examined. Medical records and medication list reviewed. No acute event overnight noted by the RN. Patient denies any chest pain or difficulty breathing. Patient tolerating diet Blood pressure still labile w/o iv fluid, K still low c/o constipation Discussed plan of care at bedside with patient and his daughter. Objective - Constitutional Vitals: Vital Signs - 12hr 06/27/19 06/27/19 06/27/19 01:00 04:38 07:36 Temperature 98.1 F Pulse Rate 78 95 H Pulse Rate [ 88 Anterior Bilateral Throughout] Respiratory 18 Rate Respiratory 18 Rate [Anterior Bilateral Throughout] Blood Pressure 97/43 O2 Sat by Pulse 99 Oximetry 06/27/19 06/27/19 06/27/19 07:37 08:14 11:14 Temperature 98.6 F Pulse Rate 113 H Pulse Rate [ Anterior Bilateral Throughout] Respiratory 20 Rate Respiratory Rate [Anterior Bilateral Throughout] Blood Pressure 117/49 O2 Sat by Pulse 95 96 95 Oximetry 06/27/19 11:46 Temperature 98.0 F Pulse Rate Pulse Rate [ Anterior Bilateral Throughout] Respiratory 18 Rate Respiratory Rate [Anterior Bilateral Throughout] Blood Pressure 132/57 O2 Sat by Pulse Oximetry - Labs CBC & Chem 7: 06/28/19 07:11 06/28/19 04:28 Labs: Abnormal lab results 06/26/19 06/26/19 06/27/19 Range/Units 14:55 16:54 04:25 RBC 2.12 L (3.65-5.03) M/mm3 Hgb 7.9 L 7.1 L (11.8-15.2) gm/dl Hct 24.0 L 21.1 L (35.5-45.6) % MCV 99 H (84-94) fl MCH 33 H (28-32) pg RDW 18.5 H (13.2-15.2) % Plt Count 126 L (140-440) K/mm3 Lymph % (Auto) 7.4 L (13.4-35.0) % Winston % (Auto) 11.3 H (0.0-7.3) % Lymph # 0.5 L (1.2-5.4) K/mm3 Seg Neutrophils % 77.7 H (40.0-70.0) % Sodium (137-145) mmol/L Potassium (3.6-5.0) mmol/L Chloride (98-107) mmol/L BUN (9-20) mg/dL Glucose (75-100) mg/dL POC Glucose 175 H (70-105) Calcium (8.4-10.2) mg/dL 06/27/19 06/27/19 Range/Units 04:25 09:44 RBC (3.65-5.03) M/mm3 Hgb 7.6 L (11.8-15.2) gm/dl Hct 22.3 L (35.5-45.6) % MCV (84-94) fl MCH (28-32) pg RDW (13.2-15.2) % Plt Count (140-440) K/mm3 Lymph % (Auto) (13.4-35.0) % Winston % (Auto) (0.0-7.3) % Lymph # (1.2-5.4) K/mm3 Seg Neutrophils % (40.0-70.0) % Sodium 148 H (137-145) mmol/L Potassium 3.0 L (3.6-5.0) mmol/L Chloride 109.6 H (98-107) mmol/L BUN 38 H (9-20) mg/dL Glucose 139 H (75-100) mg/dL POC Glucose (70-105) Calcium 7.8 L (8.4-10.2) mg/dL
[2019-06-27 12:36] LABS: ANA Screen, IFA Negative (Negative)
--- NOTE | 2019-06-27 13:08 | Progress Note ---
Assessment and Plan Acute GI bleed secondary to peptic ulcer disease Acute renal failure metabolic acidosis Blood loss anemia Hypovolemic shock Prostate cancer metastatic to bone Diabetes type 2 Hypernatremia Hypokalemia - replacing potassium - continue to wean supplemental oxygen to keep O2 sat's > 90% (on 2L NC) - home oxygen evaluation at discharge - s/p EGD with clipping; no active bleeding (Large vessel and high risk to re- bleed) - continue PPI therapy - avoid NSASID's / antiplatelet drugs - continue gentle volume resuscitation - S/P 2 units PRBC's this admission - continue glycemic control with SSI for target BG < 180 mg/dl - continue Prostate CA management per Heme/Onc team - VTE prophylaxis with SCD's - outpatient sleep study recommended to patient and daughter - continue other care per attending / other consultants ... re-evaluate in am & prn CODE STATUS: FULL PROGNOSIS: GOOD Subjective Date of service: 06/27/19 Principal diagnosis: Ac. GI bleed; PUD; ZAKIYA; ABLA; Hypovolemic Shock; Prostate cancer; DM II Interval history: Patient is seen today for: Acute GI bleed; PUD; ZAKIYA; Acute Metabolic acidosis; Acute Blood loss anemia; Hypovolemic shock; Prostate cancer metastatic to bone; Diabetes type 2 Seen and examined at bedside; 24hour events reviewed; nursing and respiratory care staff consulted; no adverse overnight events reported to me; resting peacefully in bed; continues to feel better; no N/V/F/C; denies acute chest pains or palpitations Objective Vital Signs - 12hr 06/27/19 06/27/19 06/27/19 04:38 07:36 07:37 Temperature 98.1 F Pulse Rate 95 H Pulse Rate [ 88 Anterior Bilateral Throughout] Respiratory 18 Rate Respiratory 18 Rate [Anterior Bilateral Throughout] Blood Pressure 97/43 O2 Sat by Pulse 99 95 Oximetry 06/27/19 06/27/19 06/27/19 08:14 11:14 11:46 Temperature 98.6 F 98.0 F Pulse Rate 113 H Pulse Rate [ Anterior Bilateral Throughout] Respiratory 20 18 Rate Respiratory Rate [Anterior Bilateral Throughout] Blood Pressure 117/49 132/57 O2 Sat by Pulse 96 95 Oximetry Constitutional: alert, appears uncomfortable, other (elderly looking obese AAM, normocep[halic and atraumatic with mildly increased resp effort at rest) Eyes: non-icteric ENT: oropharynx moist, other (Mallampati 4) Neck: supple, no lymphadenopathy, no JVD, other (large neck circumference) Effort: mildly labored Ascultation: Bilateral: clear, diminished breath sounds Percussion: Bilateral: not dull Cardiovascular: regular rate and rhythm Gastrointestinal: normoactive bowel sounds, soft, non-tender, other (protuberant) Integumentary: normal Extremities: no cyanosis, no edema, pulses normal, no ischemia or petechiae Neurologic: normal mental status, non-focal exam, pupils equal and round, motor strength normal and Psychiatric: mood appropriate, affect normal CBC and BMP: 06/28/19 07:11 06/28/19 04:28 ABG, PT/INR, D-dimer: PT/INR, D-dimer PT 13.7 Sec. (12.2-14.9) 06/23/19 17:49 INR 1.08 (0.87-1.13) 06/23/19 17:49 Abnormal lab findings: Abnormal Labs 06/23/19 06/23/19 06/23/19 17:49 17:49 18:21 RBC 2.18 L Hgb 7.5 L Hct 22.9 L MCV 105 H MCH 35 H RDW Plt Count Lymph % (Auto) 6.2 L Gaines % (Auto) 9.6 H Lymph # 0.6 L Gaines # 0.9 H Seg Neutrophils % 83.9 H Seg Neuts % (Manual) Lymphocytes % (Manual) Monocytes % (Manual) Lymphocytes # (Manual) Monocytes # (Manual) Sodium Potassium Chloride Carbon Dioxide 19 L BUN 149 H Creatinine 6.0 H Glucose 174 H POC Glucose 199 H Uric Acid Calcium Total Creatine Kinase Urine Creatinine Crossmatch 06/23/19 06/23/19 06/24/19 19:23 23:25 04:17 RBC 2.33 L Hgb 9.5 L 7.9 L Hct 28.0 L 23.8 L MCV 102 H MCH 34 H RDW 16.3 H Plt Count 135 L Lymph % (Auto) Gaines % (Auto) Lymph # Gaines # Seg Neutrophils % Seg Neuts % (Manual) 79.0 H Lymphocytes % (Manual) 7.0 L Monocytes % (Manual) 12.0 H Lymphocytes # (Manual) 0.6 L Monocytes # (Manual) 1.1 H Sodium Potassium Chloride Carbon Dioxide BUN Creatinine Glucose POC Glucose Uric Acid Calcium Total Creatine Kinase Urine Creatinine Crossmatch See Detail 06/24/19 06/24/19 06/24/19 04:17 04:17 07:54 RBC Hgb Hct MCV MCH RDW Plt Count Lymph % (Auto) Gaines % (Auto) Lymph # Gaines # Seg Neutrophils % Seg Neuts % (Manual) Lymphocytes % (Manual) Monocytes % (Manual) Lymphocytes # (Manual) Monocytes # (Manual) Sodium Potassium Chloride Carbon Dioxide 20 L BUN 132 H Creatinine 4.8 H Glucose 113 H POC Glucose 120 H Uric Acid 12.0 H Calcium 8.1 L Total Creatine Kinase 186 H Urine Creatinine Crossmatch 06/24/19 06/24/19 06/24/19 13:01 17:52 18:08 RBC Hgb 8.6 L Hct 26.9 L MCV MCH RDW Plt Count Lymph % (Auto) Gaines % (Auto) Lymph # Gaines # Seg Neutrophils % Seg Neuts % (Manual) Lymphocytes % (Manual) Monocytes % (Manual) Lymphocytes # (Manual) Monocytes # (Manual) Sodium Potassium Chloride Carbon Dioxide BUN Creatinine Glucose POC Glucose 141 H Uric Acid Calcium Total Creatine Kinase Urine Creatinine 75.9 H Crossmatch 06/24/19 06/24/19 06/24/19 20:27 21:51 23:32 RBC Hgb 8.3 L Hct 24.7 L MCV MCH RDW Plt Count Lymph % (Auto) Gaines % (Auto) Lymph # Gaines # Seg Neutrophils % Seg Neuts % (Manual) Lymphocytes % (Manual) Monocytes % (Manual) Lymphocytes # (Manual) Monocytes # (Manual) Sodium Potassium Chloride Carbon Dioxide BUN Creatinine Glucose POC Glucose 141 H 148 H Uric Acid Calcium Total Creatine Kinase Urine Creatinine Crossmatch 06/25/19 06/25/19 06/25/19 03:54 04:48 04:48 RBC Hgb 8.7 L Hct 25.8 L MCV MCH RDW Plt Count Lymph % (Auto) Gaines % (Auto) Lymph # Gaines # Seg Neutrophils % Seg Neuts % (Manual) Lymphocytes % (Manual) Monocytes % (Manual) Lymphocytes # (Manual) Monocytes # (Manual) Sodium 147 H Potassium Chloride 111.7 H Carbon Dioxide 21 L BUN 88 H Creatinine 2.6 H Glucose 144 H POC Glucose 165 H Uric Acid Calcium 8.3 L Total Creatine Kinase Urine Creatinine Crossmatch 06/25/19 06/25/19 06/25/19 07:56 12:03 17:30 RBC Hgb Hct MCV MCH RDW Plt Count Lymph % (Auto) Gaines % (Auto) Lymph # Gaines # Seg Neutrophils % Seg Neuts % (Manual) Lymphocytes % (Manual) Monocytes % (Manual) Lymphocytes # (Manual) Monocytes # (Manual) Sodium Potassium Chloride Carbon Dioxide BUN Creatinine Glucose POC Glucose 173 H 180 H 160 H Uric Acid Calcium Total Creatine Kinase Urine Creatinine Crossmatch 06/25/19 06/25/19 06/25/19 20:15 22:22 22:34 RBC Hgb 8.4 L 7.7 L Hct 25.1 L 22.2 L MCV MCH RDW Plt Count Lymph % (Auto) Gaines % (Auto) Lymph # Gaines # Seg Neutrophils % Seg Neuts % (Manual) Lymphocytes % (Manual) Monocytes % (Manual) Lymphocytes # (Manual) Monocytes # (Manual) Sodium Potassium Chloride Carbon Dioxide BUN Creatinine Glucose POC Glucose 174 H Uric Acid Calcium Total Creatine Kinase Urine Creatinine Crossmatch 06/26/19 06/26/19 06/26/19 01:40 04:13 04:13 RBC Hgb 7.1 L Hct 21.0 L MCV MCH RDW Plt Count Lymph % (Auto) Gaines % (Auto) Lymph # Gaines # Seg Neutrophils % Seg Neuts % (Manual) Lymphocytes % (Manual) Monocytes % (Manual) Lymphocytes # (Manual) Monocytes # (Manual) Sodium 150 H Potassium 3.3 L Chloride 111.3 H Carbon Dioxide BUN 57 H Creatinine 1.6 H Glucose 135 H POC Glucose 156 H Uric Acid Calcium 7.8 L Total Creatine Kinase Urine Creatinine Crossmatch 06/26/19 06/26/19 06/26/19 06:25 11:27 14:55 RBC Hgb 7.9 L Hct 24.0 L MCV MCH RDW Plt Count Lymph % (Auto) Gaines % (Auto) Lymph # Gaines # Seg Neutrophils % Seg Neuts % (Manual) Lymphocytes % (Manual) Monocytes % (Manual) Lymphocytes # (Manual) Monocytes # (Manual) Sodium Potassium Chloride Carbon Dioxide BUN Creatinine Glucose POC Glucose 168 H 183 H Uric Acid Calcium Total Creatine Kinase Urine Creatinine Crossmatch 06/26/19 06/27/19 06/27/19 16:54 04:25 04:25 RBC 2.12 L Hgb 7.1 L Hct 21.1 L MCV 99 H MCH 33 H RDW 18.5 H Plt Count 126 L Lymph % (Auto) 7.4 L Gaines % (Auto) 11.3 H Lymph # 0.5 L Gaines # Seg Neutrophils % 77.7 H Seg Neuts % (Manual) Lymphocytes % (Manual) Monocytes % (Manual) Lymphocytes # (Manual) Monocytes # (Manual) Sodium 148 H Potassium 3.0 L Chloride 109.6 H Carbon Dioxide BUN 38 H Creatinine Glucose 139 H POC Glucose 175 H Uric Acid Calcium 7.8 L Total Creatine Kinase Urine Creatinine Crossmatch 06/27/19 09:44 RBC Hgb 7.6 L Hct 22.3 L MCV MCH RDW Plt Count Lymph % (Auto) Gaines % (Auto) Lymph # Gaines # Seg Neutrophils % Seg Neuts % (Manual) Lymphocytes % (Manual) Monocytes % (Manual) Lymphocytes # (Manual) Monocytes # (Manual) Sodium Potassium Chloride Carbon Dioxide BUN Creatinine Glucose POC Glucose Uric Acid Calcium Total Creatine Kinase Urine Creatinine Crossmatch Allied health notes reviewed: nursing
[2019-06-28 05:33] LABS: Hematocrit 22.1 % (35.5-45.6); Hemoglobin 7.4 gm/dl (11.8-15.2)
[2019-06-28 05:44] LABS: BUN/Creatinine Ratio 22; Blood Urea Nitrogen 24 mg/dL (9-20); Calcium 7.5 mg/dL (8.4-10.2); Hemolysis Index 2
[2019-06-28 07:27] LABS: Basophils % (Auto) 0.4 % (0.0-1.8); Eosinophils # (Auto) 0.3 K/mm3 (0.0-0.4); Eosinophils % (Auto) 4.3 % (0.0-4.3); Lymphocytes # (Auto) 0.4 K/mm3 (1.2-5.4); Lymphocytes % (Auto) 5.7 % (13.4-35.0); Mean Corpuscular HGB Conc 33 % (32-34); Mean Corpuscular Volume 98 fl (84-94); Monocytes # (Auto) 0.7 K/mm3 (0.0-0.8); Platelet Count 138 K/mm3 (140-440); Red Blood Count 2.44 M/mm3 (3.65-5.03); Red Cell Distribution Width 18.1 % (13.2-15.2)
[2019-06-28 08:15] LABS: Myeloperoxidase Antibody <1.0 AI (<1.0)
[2019-06-28] MEDS: DUONEB *Not for PRN Use IH SCH ×2 (09:06→14:47)
[2019-06-28] MEDS: PROTONIX PO SCH (09:38)
[2019-06-28] MEDS: SODIUM CHLORIDE FLUSH SYRINGE 10 ML IV SCH (09:38)
[2019-06-28] MEDS: D5NS 0.2% 1,000 ML IV SCH (09:38)
[2019-06-28] MEDS ORDERED: K-DUR PO NR (10:06)
--- NOTE | 2019-06-28 10:06 | Progress Note ---
Assessment and Plan Acute GI bleed secondary to peptic ulcer disease Acute renal failure metabolic acidosis Blood loss anemia Hypovolemic shock Prostate cancer metastatic to bone Diabetes type 2 Hypernatremia Hypokalemia - replacing potassium (KCL 40 meq p.o. X 1 ordered) - continue to wean supplemental oxygen to keep O2 sat's > 90% (on 2L NC) - home oxygen evaluation at discharge - s/p EGD with clipping; no active bleeding (Large vessel and high risk to re- bleed) - continue PPI therapy - avoid NSASID's / antiplatelet drugs - continue gentle volume resuscitation - S/P 2 units PRBC's this admission - continue glycemic control with SSI for target BG < 180 mg/dl - continue Prostate CA management per Heme/Onc team - VTE prophylaxis with SCD's - outpatient sleep study recommended to patient and daughter - continue other care per attending / other consultants ... re-evaluate in am & prn CODE STATUS: FULL PROGNOSIS: GOOD Subjective Date of service: 06/27/19 Principal diagnosis: Ac. GI bleed; PUD; ZAKIYA; ABLA; Hypovolemic Shock; Prostate cancer; DM II Interval history: Subjective Date of service: 06/28/19 Principal diagnosis: Ac. GI bleed; PUD; ZAKIYA; ABLA; Hypovolemic Shock; Prostate cancer; DM II Interval history: Patient is seen today for: Acute GI bleed; PUD; ZAKIYA; Acute Metabolic acidosis; A cute Blood loss anemia; Hypovolemic shock; Prostate cancer metastatic to bone; Diabetes type 2 Seen and examined at bedside; 24hour events reviewed; nursing and respiratory care staff consulted; no adverse overnight events reported to me; resting peacefully in bed; home oxygen evaluation pending; No N/V/F/C Objective Vital Signs - 12hr 06/27/19 06/27/19 06/28/19 22:15 23:27 03:36 Temperature 99.3 F 99.5 F Pulse Rate 95 H 94 H Pulse Rate [ Anterior Bilateral Throughout] Pulse Rate [ 94 H Apical] Respiratory 18 18 18 Rate Respiratory Rate [Anterior Bilateral Throughout] Blood Pressure 107/56 111/56 O2 Sat by Pulse 99 99 99 Oximetry 06/28/19 06/28/19 06/28/19 08:15 09:05 09:06 Temperature 98.6 F Pulse Rate 106 H Pulse Rate [ 92 H Anterior Bilateral Throughout] Pulse Rate [ Apical] Respiratory 20 Rate Respiratory 18 Rate [Anterior Bilateral Throughout] Blood Pressure 119/58 O2 Sat by Pulse 98 98 Oximetry Constitutional: alert, appears uncomfortable, other (elderly looking obese AAM, normocep[halic and atraumatic with mildly increased resp effort at rest) Eyes: non-icteric ENT: oropharynx moist, other (Mallampati 4) Neck: supple, no lymphadenopathy, no JVD, other (large neck circumference) Effort: mildly labored Ascultation: Bilateral: clear, diminished breath sounds Percussion: Bilateral: not dull Cardiovascular: regular rate and rhythm Gastrointestinal: normoactive bowel sounds, soft, non-tender, other (protuberant) Integumentary: normal Extremities: no cyanosis, no edema, pulses normal, no ischemia or petechiae Neurologic: normal mental status, non-focal exam, pupils equal and round, motor strength normal and Psychiatric: mood appropriate, affect normal CBC and BMP: 06/28/19 07:11 06/28/19 04:28 ABG, PT/INR, D-dimer: PT/INR, D-dimer PT 13.7 Sec. (12.2-14.9) 06/23/19 17:49 INR 1.08 (0.87-1.13) 06/23/19 17:49 Abnormal lab findings: Abnormal Labs 06/23/19 06/23/19 06/23/19 17:49 17:49 18:21 RBC 2.18 L Hgb 7.5 L Hct 22.9 L MCV 105 H MCH 35 H RDW Plt Count Lymph % (Auto) 6.2 L [place] % (Auto) 9.6 H Lymph # 0.6 L [place]ick # 0.9 H Seg Neutrophils % 83.9 H Seg Neuts % (Manual) Lymphocytes % (Manual) Monocytes % (Manual) Lymphocytes # (Manual) Monocytes # (Manual) Sodium Potassium Chloride Carbon Dioxide 19 L BUN 149 H Creatinine 6.0 H Glucose 174 H POC Glucose 199 H Uric Acid Calcium Total Creatine Kinase Urine Creatinine Crossmatch 06/23/19 06/23/19 06/24/19 19:23 23:25 04:17 RBC 2.33 L Hgb 9.5 L 7.9 L Hct 28.0 L 23.8 L MCV 102 H MCH 34 H RDW 16.3 H Plt Count 135 L Lymph % (Auto) [place]ick % (Auto) Lymph # Ma[place]ick # Seg Neutrophils % Seg Neuts % (Manual) 79.0 H Lymphocytes % (Manual) 7.0 L Monocytes % (Manual) 12.0 H Lymphocytes # (Manual) 0.6 L Monocytes # (Manual) 1.1 H Sodium Potassium Chloride Carbon Dioxide BUN Creatinine Glucose POC Glucose Uric Acid Calcium Total Creatine Kinase Urine Creatinine Crossmatch See Detail 06/24/19 06/24/19 06/24/19 04:17 04:17 07:54 RBC Hgb Hct MCV MCH RDW Plt Count Lymph % (Auto) [place] % (Auto) Lymph # Ma[place]ick # Seg Neutrophils % Seg Neuts % (Manual) Lymphocytes % (Manual) Monocytes % (Manual) Lymphocytes # (Manual) Monocytes # (Manual) Sodium Potassium Chloride Carbon Dioxide 20 L BUN 132 H Creatinine 4.8 H Glucose 113 H POC Glucose 120 H Uric Acid 12.0 H Calcium 8.1 L Total Creatine Kinase 186 H Urine Creatinine Crossmatch 06/24/19 06/24/19 06/24/19 13:01 17:52 18:08 RBC Hgb 8.6 L Hct 26.9 L MCV MCH RDW Plt Count Lymph % (Auto) [place]ick % (Auto) Lymph # Ma[place]ick # Seg Neutrophils % Seg Neuts % (Manual) Lymphocytes % (Manual) Monocytes % (Manual) Lymphocytes # (Manual) Monocytes # (Manual) Sodium Potassium Chloride Carbon Dioxide BUN Creatinine Glucose POC Glucose 141 H Uric Acid Calcium Total Creatine Kinase Urine Creatinine 75.9 H Crossmatch 06/24/19 06/24/19 06/24/19 20:27 21:51 23:32 RBC Hgb 8.3 L Hct 24.7 L MCV MCH RDW Plt Count Lymph % (Auto) [place]ick % (Auto) Lymph # Maverick # Seg Neutrophils % Seg Neuts % (Manual) Lymphocytes % (Manual) Monocytes % (Manual) Lymphocytes # (Manual) Monocytes # (Manual) Sodium Potassium Chloride Carbon Dioxide BUN Creatinine Glucose POC Glucose 141 H 148 H Uric Acid Calcium Total Creatine Kinase Urine Creatinine Crossmatch 06/25/19 06/25/19 06/25/19 03:54 04:48 04:48 RBC Hgb 8.7 L Hct 25.8 L MCV MCH RDW Plt Count Lymph % (Auto) [place]ick % (Auto) Lymph # Ma[place]ick # Seg Neutrophils % Seg Neuts % (Manual) Lymphocytes % (Manual) Monocytes % (Manual) Lymphocytes # (Manual) Monocytes # (Manual) Sodium 147 H Potassium Chloride 111.7 H Carbon Dioxide 21 L BUN 88 H Creatinine 2.6 H Glucose 144 H POC Glucose 165 H Uric Acid Calcium 8.3 L Total Creatine Kinase Urine Creatinine Crossmatch 06/25/19 06/25/19 06/25/19 07:56 12:03 17:30 RBC Hgb Hct MCV MCH RDW Plt Count Lymph % (Auto) [place]ick % (Auto) Lymph # [place]ick # Seg Neutrophils % Seg Neuts % (Manual) Lymphocytes % (Manual) Monocytes % (Manual) Lymphocytes # (Manual) Monocytes # (Manual) Sodium Potassium Chloride Carbon Dioxide BUN Creatinine Glucose POC Glucose 173 H 180 H 160 H Uric Acid Calcium Total Creatine Kinase Urine Creatinine Crossmatch 06/25/19 06/25/19 06/25/19 20:15 22:22 22:34 RBC Hgb 8.4 L 7.7 L Hct 25.1 L 22.2 L MCV MCH RDW Plt Count Lymph % (Auto) [place]ick % (Auto) Lymph # Maverick # Seg Neutrophils % Seg Neuts % (Manual) Lymphocytes % (Manual) Monocytes % (Manual) Lymphocytes # (Manual) Monocytes # (Manual) Sodium Potassium Chloride Carbon Dioxide BUN Creatinine Glucose POC Glucose 174 H Uric Acid Calcium Total Creatine Kinase Urine Creatinine Crossmatch 06/26/19 06/26/19 06/26/19 01:40 04:13 04:13 RBC Hgb 7.1 L Hct 21.0 L MCV MCH RDW Plt Count Lymph % (Auto) [place]ick % (Auto) Lymph # Maverick # Seg Neutrophils % Seg Neuts % (Manual) Lymphocytes % (Manual) Monocytes % (Manual) Lymphocytes # (Manual) Monocytes # (Manual) Sodium 150 H Potassium 3.3 L Chloride 111.3 H Carbon Dioxide BUN 57 H Creatinine 1.6 H Glucose 135 H POC Glucose 156 H Uric Acid Calcium 7.8 L Total Creatine Kinase Urine Creatinine Crossmatch 06/26/19 06/26/19 06/26/19 06:25 11:27 14:55 RBC Hgb 7.9 L Hct 24.0 L MCV MCH RDW Plt Count Lymph % (Auto) Ma[place]ick % (Auto) Lymph # Maverick # Seg Neutrophils % Seg Neuts % (Manual) Lymphocytes % (Manual) Monocytes % (Manual) Lymphocytes # (Manual) Monocytes # (Manual) Sodium Potassium Chloride Carbon Dioxide BUN Creatinine Glucose POC Glucose 168 H 183 H Uric Acid Calcium Total Creatine Kinase Urine Creatinine Crossmatch 06/26/19 06/27/19 06/27/19 16:54 04:25 04:25 RBC 2.12 L Hgb 7.1 L Hct 21.1 L MCV 99 H MCH 33 H RDW 18.5 H Plt Count 126 L Lymph % (Auto) 7.4 L [place] % (Auto) 11.3 H Lymph # 0.5 L [place]ick # Seg Neutrophils % 77.7 H Seg Neuts % (Manual) Lymphocytes % (Manual) Monocytes % (Manual) Lymphocytes # (Manual) Monocytes # (Manual) Sodium 148 H Potassium 3.0 L Chloride 109.6 H Carbon Dioxide BUN 38 H Creatinine Glucose 139 H POC Glucose 175 H Uric Acid Calcium 7.8 L Total Creatine Kinase Urine Creatinine Crossmatch 06/27/19 06/27/19 06/27/19 09:44 13:13 23:39 RBC Hgb 7.6 L Hct 22.3 L MCV MCH RDW Plt Count Lymph % (Auto) Ma[place]ick % (Auto) Lymph # Maverick # Seg Neutrophils % Seg Neuts % (Manual) Lymphocytes % (Manual) Monocytes % (Manual) Lymphocytes # (Manual) Monocytes # (Manual) Sodium Potassium Chloride Carbon Dioxide BUN Creatinine Glucose POC Glucose 136 H Uric Acid Calcium Total Creatine Kinase Urine Creatinine Crossmatch See Detail 06/28/19 06/28/19 06/28/19 03:43 04:28 04:28 RBC Hgb 7.4 L Hct 22.1 L MCV MCH RDW Plt Count Lymph % (Auto) [place]ick % (Auto) Lymph # Ma[place]ick # Seg Neutrophils % Seg Neuts % (Manual) Lymphocytes % (Manual) Monocytes % (Manual) Lymphocytes # (Manual) Monocytes # (Manual) Sodium Potassium 3.3 L Chloride Carbon Dioxide BUN 24 H Creatinine Glucose 128 H POC Glucose 124 H Uric Acid Calcium 7.5 L Total Creatine Kinase Urine Creatinine Crossmatch 06/28/19 06/28/19 07:02 07:11 RBC 2.44 L Hgb 8.0 L Hct 24.0 L MCV 98 H MCH 33 H RDW 18.1 H Plt Count 138 L Lymph % (Auto) 5.7 L [place]ick % (Auto) 11.0 H Lymph # 0.4 L [place]ick # Seg Neutrophils % 78.6 H Seg Neuts % (Manual) Lymphocytes % (Manual) Monocytes % (Manual) Lymphocytes # (Manual) Monocytes # (Manual) Sodium Potassium Chloride Carbon Dioxide BUN Creatinine Glucose POC Glucose 146 H Uric Acid Calcium Total Creatine Kinase Urine Creatinine Crossmatch Allied health notes reviewed: nursing
[2019-06-28 11:21] VITALS: BP 110/56
--- NOTE | 2019-06-28 11:22 | Progress Note ---
Subjective Principal diagnosis: Ac. GI bleed; PUD; ZAKIYA; ABLA; Hypovolemic Shock; Prostate cancer; DM II Interval history: Patient was seen today for follow-up of multiple renal related issues No complaints of any chest pain pressure or shortness of breath he is feeling much better Creatinine is currently improving Interdisciplinary notes that also reviewed Events of 24 hours vitals labs intake output medications were reviewed Past medical history: Reviewed Family history: Reviewed Social history: Reviewed Allergies: Reviewed Physical examination: Vitals: Reviewed HEENT: No pallor or icterus oral mucosa moist Neck: Supple no JVD no thyromegaly Chest: Bilateral clear to auscultation anteriorly Heart: Regular rate and rhythm S1-S2 heard no S3-S4 Abdomen: Soft nontender no voluntary guarding rigidity rebound Extremity: Dry skin less than 1+ peripheral edema Psychiatric: No evidence of agitation and aggression noted Dermatology: No petechial rashes Labs and x-rays: Reviewed from today Assessment and plan acute renal failure: Renal function appears to be improving Patient can be discharged, with oral potassium 40 today and tomorrow he can be seen in our office on Sunday overall he is doing much better from renal standpoint, aadvised him to make an appointment in the office on Sunday in [place] Laboratory studies, pertinent for discussed with patient All questions were answered and simple [place] We'll continue to follow and make recommendation for renal standpoint Objective - Vital Signs Vital signs: Vital Signs - 12hr 06/27/19 06/28/19 06/28/19 23:27 03:36 08:15 Temperature 99.3 F 99.5 F 98.6 F Pulse Rate 95 H 94 H 106 H Pulse Rate [ Anterior Bilateral Throughout] Pulse Rate [ Apical] Respiratory 18 18 20 Rate Respiratory Rate [Anterior Bilateral Throughout] Respiratory Rate [NO PAIN] Blood Pressure 107/56 111/56 119/58 O2 Sat by Pulse 99 99 98 Oximetry 06/28/19 06/28/19 06/28/19 09:05 09:06 10:00 Temperature Pulse Rate 92 H Pulse Rate [ 92 H Anterior Bilateral Throughout] Pulse Rate [ 92 H Apical] Respiratory 20 Rate Respiratory 18 Rate [Anterior Bilateral Throughout] Respiratory Rate [NO PAIN] Blood Pressure O2 Sat by Pulse 98 100 Oximetry 06/28/19 06/28/19 10:07 11:20 Temperature 98.2 F Pulse Rate Pulse Rate [ Anterior Bilateral Throughout] Pulse Rate [ Apical] Respiratory 18 Rate Respiratory Rate [Anterior Bilateral Throughout] Respiratory 20 Rate [NO PAIN] Blood Pressure 110/56 O2 Sat by Pulse Oximetry - Lab 06/28/19 07:11 06/28/19 04:28 Most recent lab results Calcium 7.5 mg/dL (8.4-10.2) L 06/28/19 04:28 Urine Creatinine 75.9 mg/dL (0.1-20.0) H 06/24/19 13:01 Urine Sodium 46 mmol/L 06/24/19 13:01 Medications & Allergies - Medications Allergies/Adverse Reactions: Allergies No Known Allergies Allergy (Unverified 11/08/15 10:54) Home Medications: Home Medications Medication Instructions Recorded Confirmed Last Taken Type ASA/Calcium Carb/Mag/Aluminum 81 mg PO DAILY 06/24/19 06/24/19 06/23/19 History [Raymond Plus 500 mg Caplet] Abiraterone Acetate 250 mg PO DAILY 06/24/19 06/24/19 06/23/19 History AtorvaSTATin [Lipitor] 40 mg PO DAILY 06/24/19 06/24/19 06/23/19 History Degarelix (Nf) [Firmagon (Nf)] 240 mg SQ QMONTH 06/24/19 06/24/19 Unknown History Furosemide 20 mg PO DAILY 06/24/19 06/24/19 06/23/19 History Lisinopril [Zestril] 20 mg PO QDAY 06/24/19 06/24/19 06/23/19 History Ondansetron [Zofran ODT TAB] 8 mg PO Q8HR PRN 06/24/19 06/24/19 06/23/19 History Prednisone [predniSONE (Shy) ER 5 mg PO QDAY 06/24/19 06/24/19 06/23/19 History TAB] Active Medications: Generic Name Dose Route Start Last Admin Trade Name Freq PRN Reason Stop Dose Admin Acetaminophen 650 mg 06/23/19 22:57 Tylenol PO Q4H PRN Pain MILD(1-3)/Fever >100.5/MONTOYA Albuterol/Ipratropium 1 ampul 06/27/19 08:00 06/28/19 09:06 Duoneb *Not For Prn Use* IH 1 ampul TIDRT ROBERTO Administration Dextrose 50 ml 06/27/19 08:00 D50w (25gm) Syringe IV Q1H PRN Hypoglycemia Dextrose/Sodium Chloride 1,000 mls @ 75 mls/hr 06/26/19 10:00 06/28/19 09:38 D5ns 0.2% IV 75 mls/hr DIRECT ROBERTO Administration Lorazepam 2 mg 06/23/19 23:06 Ativan IV Q1HR PRN CIWA-Ar 8-15 Lorazepam 4 mg 06/23/19 23:06 Ativan IV Q1HR PRN CIWA-Ar 16-25 Ondansetron HCl 4 mg 06/23/19 22:57 Zofran IV Q4H PRN Nausea And Vomiting Pantoprazole Sodium 40 mg 06/25/19 10:00 06/28/19 09:38 Protonix PO 40 mg BID ROBERTO Administration Potassium Chloride 40 meq 06/28/19 10:06 K-Dur PO 06/28/19 16:00 ONCE NR Sodium Chloride 10 ml 06/24/19 10:00 06/28/19 09:38 Sodium Chloride Flush Syringe 10 Ml IV 10 ml BID ROBERTO Administration Sodium Chloride 10 ml 06/23/19 22:57 Sodium Chloride Flush Syringe 10 Ml IV PRN PRN LINE FLUSH
--- NOTE | 2019-06-28 14:47 | Discharge Summary ---
Providers - Providers Date of Admission: 06/23/19 22:42 Date of discharge: 06/28/19 Attending physician: JEANINE IRENE 06/23/19 22:57 Consult to Physician [CONS] Routine Comment: Consulting Provider: CAT LOWERY Physician Instructions: Reason For Exam: cc Consult to Physician [CONS] Urgent Comment: Spoke with Dr. Soto, he is already aware of pt Consulting Provider: RINA SOTO Physician Instructions: Reason For Exam: cc 06/25/19 12:17 Consult to Wound/ET Nurse [CONS] Routine Reason For Exam: wound eval B/L legs. 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 He had 3 episodes of black stool and vomiting dark emesis on June 19, vomiting subsided but he continued to have black stools. Denies any NSAID use, is on aspirin, prednisone, chronic diuretic therapy. s/p EGD in the emergency room, and transfusion of 1 unit of blood, admitted for further mx Radiological data: CT abdomen/pelvis: 1. No acute abdominal or pelvic abnormality. 2. 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 Discharge diagnosis and Mx: Acute renal failure with metabolic acidosis - improving - likely from severe dehydration with ATN - cont iv fluid with bicarbonate drip Blood loss anemia - transfused 1 unit of PRBC, monitor h/h - no sign of active bleeding - considering underlying malignancy and degree of anemia with labile BP will transfuse another unit of PRBC Hypokalemia, cont to replete Hypernatremia, started hypotonic fluid, cont to monitor GI bleed secondary to peptic ulcer disease, - status post clipping, GI following - s/p EGD overnight 06/23/19 that showed 5mm actively bleeding PUD in antrum (s/p clip x 1 and epinephrine with good control of bleed after procedure but vessel large and high risk to rebleed), moderate blood/food in proximal stomach (unable to fully clear), and normal esophagus and duodenum -etiology-likely PUD given ASA/Goodys/Prednisone use --s/p repeat EGD (06/24) that showed ulcer mainly white based w/ pigmented area (1cm) antrum (no active bleeding), and multiple other small ulcers in antrum -continue protonix iv -avoid NSAID -continue supportive care, advance diet -if rebleeds, will consult to IR for possible embolization Hypovolumic shock - cont iv fluid. 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 - Minimally mets, but has been recurrent after prostatectomy and casodex therapy. - Currently on antitestosterone meds, and prednisone - No pelvic/bladder disease on PET March Diabetes type 2, SSI for now DVT prophylaxis, SCD - full code, Poor prognosis Disposition: home with Hospitalist Physical exam: GENERAL: well-developed obese AAM lying on bed appeared to be in no discomfort. HEENT: Normocephalic. Atraumatic. No conjunctival congestion or icterus. Patient has moist mucous membranes. NECK: Supple. Trachea midline. CHEST/LUNGS: Clear to auscultated bilaterally, breathing nonlabored. No wheezes crackles or rhonchi. HEART/CARDIOVASCULAR: Regular in rate and rhythm. S1 and S2 positive. + murmur on aortic area ABDOMEN: Abdomen is soft, nontender. Patient has normal bowel sounds. SKIN: There is no rash. Warm and dry. NEURO: No focal motor deficit. Follows command. MUSCULOSKELETAL: No joint effusion or tenderness. EXTRIMITY: No edema, no cyanosis or clubbing. PSYCH: Cooperative. Disposition: [id number]/[place]-06 HOME [facility] Time spent for discharge: 34 minutes Core Measure Documentation - Palliative Care Palliative Care/ Comfort Measures: Not Applicable - Core Measures Any of the following diagnoses?: history only Exam - Constitutional Vitals: Temp Pulse Resp BP Pulse Ox 98.2 F 92 H 18 110/56 100 06/28/19 11:20 06/28/19 10:00 06/28/19 11:20 06/28/19 11:20 06/28/19 10:00 Plan Activity: advance as tolerated Weight Bearing Status: Non-Weight Bearing Diet: low fat, diabetic Special Instructions: record daily BP diary, record blood sugar diary Follow up with: [facility] - 07/03/19 10:00 am Prescriptions: Polyethylene Glycol 3350 [Miralax 3350] 17 gm PO QDAY #7 packet Pantoprazole [Protonix TAB] 40 mg PO BID #60 tablet
== END 2019-06-28 17:40 | disposition home or self-care (01) | DRG 377 ==
LOC: ED 17:22 → CC1 22:42 → 4A 06-25 14:57
PROVIDERS: ADMIT Internal Medicine; ATTEND Internal Medicine
PROC: 0W3P8ZZ Control Bleeding in Gastrointestinal Tract, Via Natural or Artificial Opening Endoscopic (ICD-10-PCS; principal; 2019-06-23)
PROC: 3E0G8GC Introduction of Other Therapeutic Substance into Upper GI, Via Natural or Artificial Opening Endoscopic (ICD-10-PCS; 2019-06-23)
PROC: 30233N1 Transfusion of Nonautologous Red Blood Cells into Peripheral Vein, Percutaneous Approach (ICD-10-PCS; 2019-06-23)
PROC: 0DJ08ZZ Inspection of Upper Intestinal Tract, Via Natural or Artificial Opening Endoscopic (ICD-10-PCS; 2019-06-24)
DX: K25.4 Chronic or unspecified gastric ulcer with hemorrhage (principal); N17.0 Acute kidney failure with tubular necrosis; R57.1 Hypovolemic shock; E87.2 Acidosis; E87.0 Hyperosmolality and hypernatremia; C79.51 Secondary malignant neoplasm of bone; C61 Malignant neoplasm of prostate; E11.9 Type 2 diabetes mellitus without complications; I10 Essential (primary) hypertension; D50.0 Iron deficiency anemia secondary to blood loss (chronic); E66.9 Obesity, unspecified; I87.2 Venous insufficiency (chronic) (peripheral); K44.9 Diaphragmatic hernia without obstruction or gangrene; E87.6 Hypokalemia; I95.89 Other hypotension; Z79.899 Other long term (current) drug therapy; Z79.82 Long term (current) use of aspirin; Z87.891 Personal history of nicotine dependence; Z72.89 Other problems related to lifestyle; Z68.35 Body mass index [BMI] 35.0-35.9, adult; Z90.79 Acquired absence of other genital organ(s)
CPT/HCPCS: 36415; 36430; 71045; 74018; 74176; 76770; 80048; 80053; 81001; 82550; 82570; 82962; 84300; 84439; 84443; 84550; 85007; 85014; 85018; 85025; 85610; 85730; 86021; 86038; 86334; 86850; 86900; 86901; 86920; 89050; 93005; 93010; 94640; 94760; G0378; C9113; J0171; J2704; J7030; J7040; J7070; P9016

== ENCOUNTER 2019-07-03 09:47 | Outpatient (CLI) | payer BC ==
[2019-07-03] MEDS ORDERED: AD OINTMENT TP SCH (11:00)
[2019-07-03] MEDS ORDERED: XYLOCAINE TOPICAL 4% TP ONE (11:20)
== END 2019-07-03 09:48 | disposition home or self-care (01) ==
LOC: WOUND 09:47
PROVIDERS: ATTEND Surgery
DX: I87.312 Chronic venous hypertension (idiopathic) with ulcer of left lower extremity (principal); E10.622 Type 1 diabetes mellitus with other skin ulcer; L97.821 Non-pressure chronic ulcer of other part of left lower leg limited to breakdown of skin; L97.811 Non-pressure chronic ulcer of other part of right lower leg limited to breakdown of skin; E78.5 Hyperlipidemia, unspecified; Z87.891 Personal history of nicotine dependence; Z85.46 Personal history of malignant neoplasm of prostate
CPT/HCPCS: 99215; A6250; G0463

== ENCOUNTER 2019-07-17 09:50 | Outpatient (CLI) | payer BC ==
[2019-07-17] MEDS ORDERED: LIDOCAINE (4%) 40 MG/ML TOPICAL SOLN 50 ML BOTTLE TP ONE (16:17)
== END 2019-07-17 09:51 | disposition home or self-care (01) ==
LOC: WOUND 09:50
PROVIDERS: ATTEND Surgery
DX: I87.312 Chronic venous hypertension (idiopathic) with ulcer of left lower extremity (principal); E10.622 Type 1 diabetes mellitus with other skin ulcer; L97.821 Non-pressure chronic ulcer of other part of left lower leg limited to breakdown of skin; L97.811 Non-pressure chronic ulcer of other part of right lower leg limited to breakdown of skin; E78.5 Hyperlipidemia, unspecified; Z87.891 Personal history of nicotine dependence; Z85.46 Personal history of malignant neoplasm of prostate

== ENCOUNTER 2019-07-31 09:52 | Outpatient (CLI) | payer BC ==
[2019-07-31] MEDS ORDERED: LIDOCAINE (4%) 40 MG/ML TOPICAL SOLN 50 ML BOTTLE TP ONE (11:00)
== END 2019-07-31 09:53 | disposition home or self-care (01) ==
LOC: WOUND 09:52
PROVIDERS: ATTEND Surgery
DX: I87.312 Chronic venous hypertension (idiopathic) with ulcer of left lower extremity (principal); E10.622 Type 1 diabetes mellitus with other skin ulcer; L97.821 Non-pressure chronic ulcer of other part of left lower leg limited to breakdown of skin; L97.811 Non-pressure chronic ulcer of other part of right lower leg limited to breakdown of skin; E78.5 Hyperlipidemia, unspecified; Z87.891 Personal history of nicotine dependence; Z85.46 Personal history of malignant neoplasm of prostate

== ENCOUNTER 2019-08-13 08:53 | Outpatient (CLI) | payer BC ==
[2019-08-13] MEDS ORDERED: LIDOCAINE (4%) 40 MG/ML TOPICAL SOLN 50 ML BOTTLE TP ONE (09:30)
== END 2019-08-13 08:54 | disposition home or self-care (01) ==
LOC: WOUND 08:53
PROVIDERS: ATTEND Surgery
DX: I87.312 Chronic venous hypertension (idiopathic) with ulcer of left lower extremity (principal); E10.622 Type 1 diabetes mellitus with other skin ulcer; L97.821 Non-pressure chronic ulcer of other part of left lower leg limited to breakdown of skin; L97.811 Non-pressure chronic ulcer of other part of right lower leg limited to breakdown of skin; E78.5 Hyperlipidemia, unspecified; Z87.891 Personal history of nicotine dependence; Z85.46 Personal history of malignant neoplasm of prostate
CPT/HCPCS: 99214; G0463

== ENCOUNTER 2022-03-12 23:34 | Inpatient (IN) | payer BC ==
[2022-03-13] MEDS ORDERED: PIPERACILLIN/TAZOBACTAM 3.375 3.375 GM/50 ML BAG IV ONE
[2022-03-13] MEDS ORDERED: ACETAMINOPHEN IV 1,000 MG/100 ML BOTTLE IV ONE (00:02)
[2022-03-13] MEDS ORDERED: ALBUTEROL 2.5 MG/3 ML NEBU IH ONE (00:08)
[2022-03-13] MEDS ORDERED: SODIUM CHLORIDE 0.9% 1000 ML 1,000 ML IV ONE ×2 (00:31→02:56)
[2022-03-13 00:43] LABS: Hematocrit 38.9 % (35.5-45.6); Hemoglobin 12.8 gm/dl (11.8-15.2); Mean Corpuscular HGB Conc 33 % (32-34); Mean Corpuscular Volume 99 fl (84-94); Red Blood Count 3.94 M/mm3 (3.65-5.03); Red Cell Distribution Width 15.1 % (13.2-15.2)
[2022-03-13 00:47] LABS: Platelet Count 79 K/mm3 (140-440)
[2022-03-13 01:04] LABS: ABG Base Excess -1.4 mmol/L (-2.0-3.0); ABG HCO3 20.7 mmol/L (20.0-26.0); ABG Methemoglobin 0.7 % (0.0-1.5); ABG Oxygen Saturation 99.2 % (95.0-99.0); ABG PCO2 27.4 mm Hg; ABG PH 7.495 pH Units (7.350-7.450); ABG PO2 181.8 mm Hg (80.0-90.0)
--- NOTE | 2022-03-13 01:06 | XRay Report ---
XR chest 1V ap INDICATION / CLINICAL INFORMATION: Dyspnea. COMPARISON: None available. FINDINGS: Findings in the chest are accentuated by body habitus and phase of inspiration. SUPPORT DEVICES: None. HEART /PULMONARY VASCULATURE: No significant abnormality. LUNGS / PLEURA: Markedly diminished lung volumes. No definite infiltrate. No pleural effusion. No pne umothorax. ADDITIONAL FINDINGS: No significant additional findings. IMPRESSION: Markedly low lung volumes without evidence of definite acute cardiopulmonary disease. Signer Name: Bryant Alexander MD Signed: 03/13/2022 1:01 AM Workstation Name: [id number]
[2022-03-13 01:10] LABS: Alanine Aminotransferase 33 units/L (7-56); Albumin 3.9 g/dL (3.9-5); BUN/Creatinine Ratio 11; Blood Urea Nitrogen 11 mg/dL (9-20); Calcium 9.4 mg/dL (8.4-10.2); Hemolysis Index 26
[2022-03-13 01:31] LABS: Chol/HDL Ratio 2.69 %; HDL Cholesterol 56 mg/dL (40-59); LDL Cholesterol,Direct 89 mg/dL (50-130)
[2022-03-13 02:07] LABS: Bacteria,Urine 2+ /HPF (Negative)
[2022-03-13 02:20] LABS: Bilirubin,Urine Negative (Negative); Color,Urine Yellow (Yellow); RBC,Urine > 182.0 /HPF (0.0-6.0)
[2022-03-13 02:21] LABS: Blood,Urine Large (Negative)
--- NOTE | 2022-03-13 03:06 | Emergency Department Report ---
ED Shortness of Breath HPI - General Chief Complaint: Dyspnea/Respdistress Stated Complaint: ZACKARY Time Seen by Provider: 03/13/22 00:02 Source: patient Mode of arrival: Stretcher Limitations: No Limitations - History of Present Illness Initial Comments: Patient is a 81-year-old male with history of hypertension, diabetes and lymphedema brought in by EMS for difficulty breathing. He was placed on BiPAP by EMS prior to arrival. Also noted to have fever of 104 with tachycardia in the 130s. - Related Data Home Medications Medication Instructions Recorded Confirmed Last Taken ASA/Calcium Carb/Mag/Aluminum 81 mg PO DAILY 06/24/19 06/24/19 06/23/19 [Raymond Plus 500 mg Caplet] Abiraterone Acetate 250 mg PO DAILY 06/24/19 06/24/19 06/23/19 AtorvaSTATin [Lipitor] 40 mg PO DAILY 06/24/19 06/24/19 06/23/19 Degarelix (Nf) [Firmagon (Nf)] 240 mg SQ QMONTH 06/24/19 06/24/19 Unknown Ondansetron [Zofran ODT TAB] 8 mg PO Q8HR PRN 06/24/19 06/24/19 06/23/19 Prednisone [predniSONE (Shy) ER 5 mg PO QDAY 06/24/19 06/24/19 06/23/19 TAB] Previous Rx's Medication Instructions Recorded Last Taken Type Pantoprazole [Protonix TAB] 40 mg PO BID #60 tablet 06/28/19 Unknown Rx polyethylene glycoL 3350 [Miralax 17 gm PO QDAY #7 packet 06/28/19 Unknown Rx 3350] Allergies Allergy/AdvReac Type Severity Reaction Status Date / Time No Known Allergies Allergy Unverified 11/08/15 10:54 ED Review of Systems ROS: Stated complaint: ZACKARY Other details as noted in HPI Comment: Unobtainable due to pts medical conditions ED Past Medical Hx - Past Medical History Previous Medical History?: Yes Hx Hypertension: Yes (25 YRS +) Hx Congestive Heart Failure: No Hx Diabetes: Yes (12 YRS) Hx GERD: Yes Hx Sickle Cell Disease: No Hx Asthma: No Hx COPD: No Hx HIV: No Additional medical history: PROSTATE CA WITH TREATMENT, VENOUS REFLUX, ELEVATED CHOLESTEROL, LYMPPHADEMA - Surgical History Past Surgical History?: No - Social History Smoking Status: Unknown if ever smoked - Medications Home Medications: Home Medications Medication Instructions Recorded Confirmed Last Taken Type ASA/Calcium Carb/Mag/Aluminum 81 mg PO DAILY 06/24/19 06/24/19 06/23/19 History [Raymond Plus 500 mg Caplet] Abiraterone Acetate 250 mg PO DAILY 06/24/19 06/24/19 06/23/19 History AtorvaSTATin [Lipitor] 40 mg PO DAILY 06/24/19 06/24/19 06/23/19 History Degarelix (Nf) [Firmagon (Nf)] 240 mg SQ QMONTH 06/24/19 06/24/19 Unknown History Ondansetron [Zofran ODT TAB] 8 mg PO Q8HR PRN 06/24/19 06/24/19 06/23/19 History Prednisone [predniSONE (Shy) ER 5 mg PO QDAY 06/24/19 06/24/19 06/23/19 History TAB] Pantoprazole [Protonix TAB] 40 mg PO BID #60 tablet 06/28/19 Unknown Rx polyethylene glycoL 3350 [Miralax 17 gm PO QDAY #7 packet 06/28/19 Unknown Rx 3350] ED Physical Exam - General General appearance: lethargic, obese - Head Head exam: Present: atraumatic, normocephalic - Respiratory Respiratory exam: Present: rhonchi, decreased breath sounds - Cardiovascular Cardiovascular Exam: Present: normal rhythm, tachycardia, normal heart sounds - GI/Abdominal GI/Abdominal exam: Present: soft. Absent: distended, tenderness - Rectal Rectal exam: Present: deferred - Extremities Exam Extremities exam: Present: pedal edema - Neurological Exam Neurological exam: Present: altered - Skin Skin exam: Present: warm, dry, intact, normal color ED Course Vital Signs 03/12/22 03/13/22 03/13/22 23:35 00:02 00:15 Temperature 104.6 F H Pulse Rate 136 H 134 H 135 H Pulse Rate [ Anterior Throughout] Respiratory 30 H 32 H 28 H Rate Respiratory Rate [Anterior Throughout] Blood Pressure 156/90 123/75 O2 Sat by Pulse 100 76 L 97 Oximetry 03/13/22 03/13/22 03/13/22 00:16 00:21 00:30 Temperature Pulse Rate 135 H 129 H Pulse Rate [ 133 H Anterior Throughout] Respiratory 34 H 26 H Rate Respiratory 27 H Rate [Anterior Throughout] Blood Pressure 138/81 123/75 O2 Sat by Pulse 99 99 Oximetry 03/13/22 03/13/22 03/13/22 00:46 01:00 01:16 Temperature Pulse Rate 125 H 128 H 120 H Pulse Rate [ Anterior Throughout] Respiratory 12 18 21 Rate Respiratory Rate [Anterior Throughout] Blood Pressure 112/40 89/51 86/53 O2 Sat by Pulse 99 98 99 Oximetry 03/13/22 03/13/22 03/13/22 01:30 01:46 02:00 Temperature Pulse Rate 124 H 120 H 121 H Pulse Rate [ Anterior Throughout] Respiratory 24 21 15 Rate Respiratory Rate [Anterior Throughout] Blood Pressure 90/49 94/48 82/50 O2 Sat by Pulse 97 96 97 Oximetry 03/13/22 03/13/22 03/13/22 02:16 02:30 02:46 Temperature Pulse Rate 120 H 118 H 115 H Pulse Rate [ Anterior Throughout] Respiratory 25 H 18 26 H Rate Respiratory Rate [Anterior Throughout] Blood Pressure 78/51 87/54 93/56 O2 Sat by Pulse 97 98 99 Oximetry 03/13/22 02:53 Temperature 101.6 F H Pulse Rate Pulse Rate [ Anterior Throughout] Respiratory Rate Respiratory Rate [Anterior Throughout] Blood Pressure O2 Sat by Pulse Oximetry ED Medical Decision Making - Lab Data Result diagrams: 03/13/22 00:22 03/13/22 00:22 - Medical Decision Making Patient brought in by EMS for initial complaint of shortness of breath. Noted to have fever of 104 in triage. He was given IV Tylenol. EKG shows sinus tachycardia with rate of 134 along with left bundle branch block. Chest x-ray shows significantly decreased lung volumes however no signs of infiltrate or effusion. CBC and CMP grossly unremarkable. Troponin mildly elevated. I feel this is likely secondary to demand. UA findings consistent with UTI with 150 WBCs and moderate leukocyte esterase. Patient given IV Zosyn along with 1 L NS bolus x3. He is currently mildly hypotensive despite aggressive fluid resuscitation. I discussed case with Dr. Sanchez and Dr. Noe. Will admit to ICU for urosepsis and acute respiratory failure. Critical Care Time: Yes Critical care time in (mins) excluding proc time.: 60 Critical care attestation.: If time is entered above; I have spent that time in minutes in the direct care of this critically ill patient, excluding procedure time. ED Disposition Clinical Impression: Sepsis secondary to UTI, Acute respiratory failure Disposition: ADMITTED INPATIENT Is pt being admited?: Yes Condition: Fair
[2022-03-13] MEDS ORDERED: MORPHINE 2 MG/1 ML INJ IV PRN (04:21)
[2022-03-13] MEDS ORDERED: MORPHINE 4 MG/1 ML INJ IV PRN (04:21)
[2022-03-13] MEDS ORDERED: ACETAMINOPHEN 325 MG TAB PO PRN (04:21)
[2022-03-13] MEDS ORDERED: DEXTROSE 50% IN WATER (25GM) 50 ML SYRINGE IV PRN (04:21)
[2022-03-13] MEDS ORDERED: ALBUTEROL 2.5 MG/3 ML NEBU IH PRN (04:21)
[2022-03-13] MEDS ORDERED: ONDANSETRON 4 MG/2 ML INJ IV PRN (04:21)
[2022-03-13] MEDS ORDERED: SODIUM CHLORIDE 0.9% 1000 ML 1,000 ML IV SCH (04:30)
--- NOTE | 2022-03-13 04:31 | History and Physical Report ---
History of Present Illness Date of examination: 03/13/22 Date of admission: 03/13/22 Chief complaint: Dyspnea Respiratory distress History of present illness: 81-year-old male with history of hypertension, diabetes and lymphedema brought in by EMS for difficulty breathing. He was placed on BiPAP by EMS prior to arrival. Also noted to have fever of 104 with tachycardia in the 130s. In the emergency room patient is found hypotensive BP was 78/51. EKG shows sinu s tachycardia with rate of 134 along with left bundle branch block. Chest x-ray shows significantly decreased lung volumes however no signs of infiltrate or effusion. CBC and CMP grossly unremarkable. Troponin mildly elevated. UA findings consistent with UTI with 150 WBCs and moderate leukocyte esterase. Patient given IV Zosyn along with 1 L NS bolus x3. He is currently mildly hypotensive despite aggressive fluid resuscitation. discussed case with Dr. Sanchez and admit the patient to the ICU Past History Past Medical History: diabetes, GERD ( PROSTATE CA WITH TREATMENT, VENOUS REFLUX, ELEVATED CHOLESTEROL, LYMPPHADEMA), hypertension Past Surgical History: No surgical history Social history: no significant social history Family history: hypertension Medications and Allergies Allergies Allergy/AdvReac Type Severity Reaction Status Date / Time No Known Allergies Allergy Unverified 11/08/15 10:54 Home Medications Medication Instructions Recorded Confirmed Last Taken Type ASA/Calcium Carb/Mag/Aluminum 81 mg PO DAILY 06/24/19 06/24/19 06/23/19 History [Raymond Plus 500 mg Caplet] Abiraterone Acetate 250 mg PO DAILY 06/24/19 06/24/19 06/23/19 History AtorvaSTATin [Lipitor] 40 mg PO DAILY 06/24/19 06/24/19 06/23/19 History Degarelix (Nf) [Firmagon (Nf)] 240 mg SQ QMONTH 06/24/19 06/24/19 Unknown History Ondansetron [Zofran ODT TAB] 8 mg PO Q8HR PRN 06/24/19 06/24/19 06/23/19 History Prednisone [predniSONE (Shy) ER 5 mg PO QDAY 06/24/19 06/24/19 06/23/19 Hi story TAB] Pantoprazole [Protonix TAB] 40 mg PO BID #60 tablet 06/28/19 Unknown Rx polyethylene glycoL 3350 [Miralax 17 gm PO QDAY #7 packet 06/28/19 Unknown Rx 6530] Review of Systems All systems: negative Constitutional: fatigue, weakness Cardiovascular: edema, shortness of breath, dyspnea on exertion Respiratory: shortness of breath, dyspnea on exertion Exam - Constitutional Vitals: Temp Pulse Resp BP Pulse Ox 101.6 F H 141 H 25 H 93/56 99 03/13/22 02:53 03/13/22 03:08 03/13/22 03:08 03/13/22 02:46 03/13/22 03:08 General appearance: Present: no acute distress, well-nourished - EENT Eyes: Present: PERRL ENT: hearing intact, clear oral mucosa - Neck Neck: Present: supple, normal ROM - Respiratory Respiratory effort: normal Respiratory: bilateral: diminished - Cardiovascular Heart Sounds: Present: S1 & S2. Absent: rub, click - Extremities Extremities: pulses symmetrical, No edema Extremity abnormal: edema Peripheral Pulses: within normal limits - Abdominal General gastrointestinal: Present: soft, non-tender, non-distended, normal bowel sounds Male genitourinary: Present: normal - Integumentary Integumentary: Present: clear, warm, dry - Musculoskeletal Musculoskeletal: gait normal, strength equal bilaterally - Psychiatric Psychiatric: appropriate mood/affect, intact judgment & insight - Neurologic Neurologic: CNII-XII intact, moves all extremities HEART Score - HEART Score Troponin: Troponin T 0.083 ng/mL (0.00-0.029) H 03/13/22 00:22 Results - Labs CBC & Chem 7: 03/13/22 00:22 03/13/22 00:22 Labs: Laboratory Last Values WBC 10.4 K/mm3 (4.5-11.0) 03/13/22 00:22 RBC 3.94 M/mm3 (3.65-5.03) 03/13/22 00:22 Hgb 12.8 gm/dl (11.8-15.2) 03/13/22 00:22 Hct 38.9 % (35.5-45.6) 03/13/22 00:22 MCV 99 fl (84-94) H 03/13/22 00:22 MCH 33 pg (28-32) H 03/13/22 00:22 MCHC 33 % (32-34) 03/13/22 00:22 RDW 15.1 % (13.2-15.2) 03/13/22 00:22 Plt Count 79 K/mm3 (140-440) L 03/13/22 00:22 Lymph % (Auto) Dialysis Registered Nurse 03/13/22 00:22 [place] % (Auto) Dialysis Registered Nurse 03/13/22 00:22 Eos % (Auto) Dialysis Registered Nurse 03/13/22 00:22 Baso % (Auto) Dialysis Registered Nurse 03/13/22 00:22 Lymph # (Auto) Dialysis Registered Nurse 03/13/22 00:22 [place] # (Auto) Dialysis Registered Nurse 03/13/22 00:22 Eos # (Auto) Dialysis Registered Nurse 03/13/22 00:22 Baso # (Auto) Dialysis Registered Nurse 03/13/22 00:22 Seg Neutrophils % Dialysis Registered Nurse 03/13/22 00: Seg Neutrophils # Dialysis Registered Nurse 03/13/22 00:22 ABG pH 7.495 pH Units (7.350-7.450) H 03/13/22 00:20 ABG pCO2 27.4 mm Hg 03/13/22 00:20 ABG pO2 181.8 mm Hg (80.0-90.0) H 03/13/22 00:20 ABG HCO3 20.7 mmol/L (20.0-26.0) 03/13/22 00:20 ABG O2 Saturation 99.2 % (95.0-99.0) H 03/13/22 00:20 ABG O2 Content 17.3 (0.0-44) 03/13/22 00:20 ABG Base Excess -1.4 mmol/L (-2.0-3.0) 03/13/22 00:20 ABG Hemoglobin 12.3 gm/dl (14.0-18.0) L 03/13/22 00:20 ABG Carboxyhemoglobin 0.6 % (0.0-5.0) 03/13/22 00:20 ABG Methemoglobin 0.7 % (0.0-1.5) 03/13/22 00:20 Oxyhemoglobin 97.9 % (95.0-99.0) 03/13/22 00:20 FiO2 45 % 03/13/22 00:20 Sodium 138 mmol/L (137-145) 03/13/22 00:22 Potassium 3.5 mmol/L (3.6-5.0) L 03/13/22 00:22 Chloride 99.5 mmol/L (98-107) 03/13/22 00:22 Carbon Dioxide 23 mmol/L (22-30) 03/13/22 00:22 Anion Gap 19 mmol/L 03/13/22 00:22 BUN 11 mg/dL (9-20) 03/13/22 00:22 Creatinine 1.0 mg/dL (0.8-1.3) 03/13/22 00:22 Estimated GFR > 60 ml/min 03/13/22 00: BUN/Creatinine Ratio 11 % 03/13/22 00:22 Glucose 101 mg/dL (75-100) H 03/13/22 00:22 Calcium 9.4 mg/dL (8.4-10.2) 03/13/22 00: Total Bilirubin 0.90 mg/dL (0.1-1.2) 03/13/22 00:22 AST 51 units/L (5-40) H 03/13/22 00: ALT 33 units/L (7-56) 03/13/22 00:22 Alkaline Phosphatase 69 units/L (35-129) 03/13/22 00:22 Troponin T 0.083 ng/mL (0.00-0.029) H 03/13/22 00:22 Total Protein 6.4 g/dL (6.3-8.2) 03/13/22 00:22 Albumin 3.9 g/dL (3.9-5) 03/13/22 00: Albumin/Globulin Ratio 1.6 % 03/13/22 00: Triglycerides 111 mg/dL (2-149) 03/13/22 00: Cholesterol 151 mg/dL (50-199) 03/13/22 00:22 LDL Cholesterol Direct 89 mg/dL (50-130) 03/13/22 00:22 HDL Cholesterol 56 mg/dL (40-59) 03/13/22 00:22 Cholesterol/HDL Ratio 2.69 % 03/13/22 00:22 Urine Color Yellow (Yellow) 03/13/22 01:25 Urine Turbidity Slightly cloudy (Clear) 03/13/22 01:25 Urine pH 6.0 (5.0-7.0) 03/13/22 01:25 Ur Specific [place] 1.030 (1.003-1.030) 03/13/22 01:25 Urine Protein 100 mg/dl mg/dL (Negative) 03/13/22 01:25 Urine Glucose (UA) Negative mg/dL (Negative) 03/13/22 01:25 Urine Ketones Trace mg/dL (Negative) 03/13/22 01:25 Urine Blood Large (Negative) A 03/13/22 01:25 Urine Nitrite Negative (Negative) 03/13/22 01:25 Ur Reducing Substances Not Reportable 03/13/22 01:25 Urine Bilirubin Negative (Negative) 03/13/22 01:25 Urine Ictotest Not Reportable 03/13/22 01:25 Urine Urobilinogen 2.0 mg/dL (<2.0) 03/13/22 01:25 Ur Leukocyte Esterase Moderate (Negative) 03/13/22 01:25 Urine WBC (Auto) 151.0 /HPF (0.0-6.0) H 03/13/22 01:25 Urine RBC (Auto) > 182.0 /HPF (0.0-6.0) 03/13/22 01:25 U Epithel Cells (Auto) 1.0 /HPF (0-13.0) 03/13/22 01:25 Urine Bacteria (Auto) 2+ /HPF (Negative) 03/13/22 01:25 Microbiology: Microbiology 03/13/22 00:11 Peripheral/Venous Blood Culture - Preliminary Culture in Progress 03/13/22 00:22 Peripheral/Venous Blood Culture - Preliminary Culture in Progress - Imaging and Cardiology Chest x-ray: report reviewed Assessment and Plan VTE prophylaxis?: Chemical Plan of care discussed with patient/family: Yes - Patient Problems (1) Sepsis Status: Acute Plan to address problem: Admit the patient to the ICU. Patient is on cardiac diet. Patient got normal saline bolus x3. Normal saline at the rate of 100 cc/h. Zosyn 4.5 g IV every 8 hours. We do the blood culture urine culture. Reconsult critical care evaluation (2) UTI (urinary tract infection) Status: Acute Plan to address problem: Zosyn 4.5 g IV every 8 hours. We do the blood culture urine culture. Reconsult critical care evaluation (3) Hypotension Status: Acute Plan to address problem: Patient got 3 L of normal saline bolus. Normal saline at the rate of 100 cc/h Zosyn 4.5 g IV every 8 hours. We do the blood culture urine culture. Reconsult critical care evaluation. (4) Acute respiratory failure Status: Acute Plan to address problem: Patient is on BiPAP. DuoNeb by nebulizer every 4 hours. Albuterol via nebulizer every 4 hours as needed. Will consult critical care for evaluation. Prednisone 5 mg p.o. daily. (5) Diabetes Status: Chronic Plan to address problem: Accu-Chek before meals and at bedtime with Humalog moderate dose coverage as. Diabetic education (6) HLD (hyperlipidemia) Status: Chronic Plan to address problem: Lipitor 40 mg p.o. daily. We will recheck the lipid panel (7) HTN (hypertension) Status: Chronic Plan to address problem: Hydralazine 10 mg IV every 6 hours as needed. We continue the home medication. We will monitor the blood pressure closely (8) Elevated troponin Status: Acute Plan to address problem: Aspirin 81 mg p.o. daily. Lipitor 40 mg p.o. daily. We will do echocardiogram. Consult cardiology (9) DVT prophylaxis Status: Acute Plan to address problem: SCD for DVT prophylaxis. Pepcid 20 mg IV every 12 hours for GI prophylaxis. Patient is a full code
[2022-03-13 05:07] LABS: ABG Base Excess -3.3 mmol/L (-2.0-3.0); ABG Methemoglobin 0.8 % (0.0-1.5); ABG PCO2 30.3 mm Hg; ABG PH 7.439 pH Units (7.350-7.450); ABG PO2 157.1 mm Hg (80.0-90.0)
[2022-03-13] MEDS ORDERED: PIPERACIL/TAZOBACTA 4.5/NS 100 4.5 GM/100 ML VIAL IV SCH (08:00)
[2022-03-13] MEDS: INSULIN LISPRO 100 UNIT/ML SUB-Q SCH ×4 (08:01→21:49)
[2022-03-13] MEDS: IPRATROPIUM/ALBUTEROL SULFATE 3 ML AMPUL.NEB IH SCH ×3 (08:26→20:06)
--- NOTE | 2022-03-13 09:13 | Consultation ---
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 HPI augmented by family at bedside. Pt reports he is usually independent but was unable to stand last night because his legs suddenly felt weak. He is unsure if they are still weak. Of note, he has chronic lymphedema. Furthermore his daughter states when she went to check on him last night, his breathing "sounded terrible." He reports significant SOB and a cough productive of yellow phlegm. On 3L O2 via NC upon assessment. Pt had a fever of 104F upon arrival and was also noted to be hypotensive, which has resolved with IV fluids. Cardiology has been consulted for elevated troponin. Pt denies chest pain. ECG reveals sinus tachycardia w/LBBB (not new). Pt is followed in our office by Dr. Elizabeth Mcdaniels. 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 denies: CABG, PTCA Social history: , lives with family. denies: smoking, alcohol abuse Family history: no significant family history Medications and Allergies Allergies Allergy/AdvReac Type Severity Reaction Status Date / Time No Known Allergies Allergy Unverified 11/08/15 10:54 Home Medications Medication Instructions Recorded Confirmed Last Taken Type ASA/Calcium Carb/Mag/Aluminum 81 mg PO DAILY 06/24/19 06/24/19 06/23/19 History [Raymond Plus 500 mg Caplet] Abiraterone Acetate 250 mg PO DAILY 06/24/19 03/13/22 06/23/19 History AtorvaSTATin [Lipitor] 40 mg PO DAILY 06/24/19 03/13/22 06/23/19 History Degarelix (Nf) [Firmagon (Nf)] 240 mg SQ QMONTH 06/24/19 06/24/19 Unknown History Ondansetron [Zofran ODT TAB] 8 mg PO Q8HR PRN 06/24/19 03/13/22 06/23/19 History Prednisone [predniSONE (Shy) ER 5 mg PO QDAY 06/24/19 03/13/22 06/23/19 History TAB] Pantoprazole [Protonix TAB] 40 mg PO BID #60 tablet 06/28/19 03/13/22 Unknown Rx polyethylene glycoL 3350 [Miralax 17 gm PO QDAY #7 packet 06/28/19 Unknown Rx 3350] Active Meds: Active Medications Acetaminophen (Acetaminophen 325 Mg Tab) 650 mg PO Q4H PRN PRN Reason: Pain MILD(1-3)/Fever >100.5/MONTOYA Albuterol (Albuterol 2.5 Mg/3 Ml Nebu) 2.5 mg IH Q3HRT PRN PRN Reason: Shortness Of Breath Albuterol/Ipratropium (Ipratropium/Albuterol Sulfate 3 Ml Ampul.Neb) 1 ampul IH Q6HRT ROBERTO Last Admin: 03/13/22 08:26 Dose: 1 ampul Atorvastatin Calcium (Atorvastatin 40 Mg Tab) 40 mg PO DAILY ROBERTO Dextrose (Dextrose 50% In Water (25gm) 50 Ml Syringe) 50 ml IV Q30MIN PRN; Protocol PRN Reason: Hypoglycemia Famotidine (Famotidine 20 Mg/2 Ml Inj) 20 mg IV BID ROBERTO Heparin Sodium (Porcine) (Heparin 5,000 Unit/1 Ml Vial) 5,000 unit SUB-Q Q12HR ROBERTO Sodium Chloride (Nacl 0.9% 1000 Ml) 1,000 mls @ 100 mls/hr IV DIRECT ROBERTO Piperacillin Sod/Tazobactam Sod (Zosyn/Ns 4.5gm/100ml) 4.5 gm in 100 mls @ 200 mls/hr IV Q8H ROBERTO; Protocol Last Admin: 03/13/22 08:53 Dose: 200 mls/hr Insulin Human Lispro (Insulin Lispro 100 Unit/Ml) 0 unit SUB-Q ACHS ROBERTO; Protocol Last Admin: 03/13/22 08:01 Dose: Not Given Miscellaneous Medication (Abiraterone Acetate [Abiraterone Acetate]) 250 mg PO DAILY [facility] Miscellaneous Medication (Asa/Calcium Carb/Mag/Aluminum [Raymond Plus 500 Mg Caplet]) 81 mg PO DAILY ROBERTO Miscellaneous Medication (Prednisone [Prednisone (Shy) Er Tab]) 5 mg PO QDAY ROBERTO Morphine Sulfate (Morphine 2 Mg/1 Ml Inj) 2 mg IV Q4H PRN PRN Reason: Pain, Moderate (4-6) Morphine Sulfate (Morphine 4 Mg/1 Ml Inj) 4 mg IV Q4H PRN PRN Reason: Pain , Severe (7-10) Ondansetron HCl (Ondansetron 4 Mg/2 Ml Inj) 4 mg IV Q8H PRN PRN Reason: Nausea And Vomiting Polyethylene Glycol (Polyethylene Glycol 3350 17 Gm Powder) 17 gm PO QDAY ROBERTO Sodium Chloride (Sodium Chloride 0.9% 10 Ml Flush Syringe) 10 ml IV BID ROBERTO Sodium Chloride (Sodium Chloride 0.9% 10 Ml Flush Syringe) 10 ml IV PRN PRN PRN Reason: LINE FLUSH Review of Systems Constitutional: fever, weakness Ears, nose, mouth and throat: no nasal congestion, no sore throat Cardiovascular: edema, shortness of breath, dyspnea on exertion, no chest pain, no orthopnea, no palpitations, no syncope, no lightheadedness Respiratory: cough with sputum, shortness of breath, dyspnea on exertion Gastrointestinal: no abdominal pain, no nausea, no vomiting Musculoskeletal: no neck stiffness, no neck pain Integumentary: no rash, no wounds Neurological: weakness, no numbness, no tingling, no seizures, no syncope, no vertigo, no headaches Endocrine: no cold intolerance, no heat intolerance Hematologic/Lymphatic: no easy bruising, no easy bleeding Allergic/Immunologic: no anaphylaxis Physical Examination Vital Signs Temp Pulse Resp BP Pulse Ox 104.6 F H 136 H 30 H 156/90 100 03/12/22 23:35 03/12/22 23:35 03/12/22 23:35 03/12/22 23:35 03/12/22 23:35 General appearance: mild distress HEENT: Positive: EOMI, Normocephaly Neck: Negative: JVD/HJR Cardiac: Positive: Tachycardia. Negative: Audible Murmur Lungs: Positive: Decreased Breath Sounds Neuro: Positive: Grossly Intact Abdomen: Positive: Soft. Negative: Tender Skin: Negative: Rash Musculoskeletal: No Pain Extremities: Present: edema (chronic BLE lymphedema), warm Results 03/13/22 00:22 03/13/22 00:22 Cardiac Enzymes 03/13/22 Range/Units 00:22 AST 51 H (5-40) units/L Lipids 03/13/22 Range/Units 00:22 Triglycerides 111 (2-149) mg/dL Cholesterol 151 (50-199) mg/dL HDL Cholesterol 56 (40-59) mg/dL Cholesterol/HDL Ratio 2.69 % CBC 03/13/22 Range/Units 00:22 WBC 10.4 (4.5-11.0) K/mm3 RBC 3.94 (3.65-5.03) M/mm3 Hgb 12.8 (11.8-15.2) gm/dl Hct 38.9 (35.5-45.6) % Plt Count 79 L (140-440) K/mm3 Lymph # (Auto) Security Sme Emanuel # (Auto) Security Sme Eos # (Auto) Security Sme Baso # (Auto) Security Sme Comprehensive Metabolic Panel 03/13/22 Range/Units 00:22 Sodium 138 (137-145) mmol/L Potassium 3.5 L (3.6-5.0) mmol/L Chloride 99.5 (98-107) mmol/L Carbon Dioxide 23 (22-30) mmol/L BUN 11 (9-20) mg/dL Creatinine 1.0 (0.8-1.3) mg/dL Glucose 101 H (75-100) mg/dL Calcium 9.4 (8.4-10.2) mg/dL AST 51 H (5-40) units/L ALT 33 (7-56) units/L Alkaline Phosphatase 69 (35-129) units/L Total Protein 6.4 (6.3-8.2) g/dL Albumin 3.9 (3.9-5) g/dL - Imaging and Cardiology Echo: report reviewed EKG: report reviewed, image reviewed EKG interpretations - EKG Sinus rhythms and dysrhythmias: sinus tachycardia AV and intraventricular conduction: left bundle branch block Assessment and Plan Assessment: Acute Respiratory Failure Sepsis COVID-19 Hypotension (resolved) Elevated Tn ?Type 2 MT Chronic LBBB BLE Weakness H/o HTN DM2 Prostate CA w Mets to Bone (actively undergoing treatment) Chronic Lymphedema Obesity H/o GIB/PUD Echo 08/2021: LVEF 60-65%. Mild LVH. Normal LA pressure with grade 1 diastolic dysfunction. No pericardial effusion. Lexiscan stress MPI 08/2021: Technically difficult but no evidence of a significant degree of ischemia or prior infarction. Normal LV systolic performa nce. Outpatient cardiac medications: ASA 81mg, Atorvastatin 40mg, Lopressor 25mg BID Plan: Trend cardiac enzymes. Recent echo and stress test reviewed (as above). Ischemic evaluation can be considered when clinically stable and after adequate recovery from COVID-19 (probably as an outpatient). Continue present mgmt per Primary/Pulm. Will defer to Primary for workup of reported "sudden leg weakness." Suspect generalized weakness in the setting of viral illness as opposed to neurologic event. Pt seen in conjunction with Dr. Hernandez, who agrees with the assessment and plan of care. - Patient Problems (1) Acute respiratory failure Current Visit: Yes Status: Acute (2) Sepsis Current Visit: Yes Status: Acute (3) COVID-19 Current Visit: Yes Status: Acute (4) Elevated troponin Current Visit: Yes Status: Acute (5) Prostate cancer Current Visit: Yes Status: Chronic
--- NOTE | 2022-03-13 09:41 | Progress Note ---
Assessment and Plan Assessment and plan: History of present illness Per admitting doctor: 81-year-old male with history of hypertension, diabetes and lymphedema brought in by EMS for difficulty breathing. He was placed on BiPAP by EMS prior to arrival. Also noted to have fever of 104 with tachycardia in the 130s. In the emergency room patient is found hypotensive BP was 78/51. EKG shows sinus tachycardia with rate of 134 along with left bundle branch block. Chest x-ray shows significantly decreased lung volumes however no signs of infiltrate or effusion. CBC and CMP grossly unremarkable. Troponin mildly elevated. UA findings consistent with UTI with 150 WBCs and moderate leukocyte esterase. Patient given IV Zosyn along with 1 L NS bolus x3. He is currently mildly hypotensive despite aggressive fluid resuscitation. discussed case with Dr. Sanchez and admit the patient to the ICU Hospital Course: 03/13: COVID +, initiated on azithro/rocephin for both empiric cap coverage and UTI tx. Decadron iv intiated. ID consultation for covid infection/viral pneumonia tx. case d/w PCCM Dr. Sanchez. Assessment and Plan: #Acute hypoxic respiratory failure #COVID 19 Infection #Viral Pneumonia -bcx/scx -covid 19 rt pcr positive -trend fever/wbc curve - supplmeental O2 - cxr pending for AM, admit cxr a poor study. - azithro/rocephin IV - decadron IV x 10 day therapy - may be a candidate for remdesivir and/or tociluzimab. Will consult ID - PCCM consultation #Urinary tract infection -urine wbc's noted - rocpehin IV #Type 2 Diabetes with Hyperglycemia - hemoglobin A1c pending - home regimen: Unknown - current regimen: Moderate SSI - blood glucose goal 140-180 while inpatient - continue to monitor #Hyperlipidemia #Hypertension #Troponin elevation - cardiology consulted on admission - likely supply demand ischemia #Morbid Obesity - BMI - Counseled patient on the importance of weight loss, incorporating exercise, and dietary changes (lean meats, fresh fruits and vegetables, and water intake). Patient expresses understanding. - Time: +15 min The high probability of a clinically significant, sudden or life threatening deterioration of the [multi] system(s) required my full and direct attention, intervention and personal management. The aggregate critical care time was [60] minutes. This time is in addition to time spent performing reported procedures but includes the following: [x] Data Review and interpretation [x] Patient assessment and monitoring of vital signs [x] Documentation [x] Medication orders and management History Interval history: On nasal cannula, vaccinated and boosted for covid however was in respiratory distress yesterday. Now more comfortable off of bipap. D/w family ( and daughter) at bedside and discussed care plan for today. Hospitalist Physical - Physical exam Narrative exam: Physical Exam: VITAL SIGNS: Reviewed. GENERAL: The patient appears normally developed, Vital signs as documented. HEAD: No signs of head trauma. EYES: Pupils are equal. Extraocular motions intact. EARS: Hearing grossly intact. MOUTH: Oropharynx is normal. NECK: No adenopathy, no JVD. CHEST: Chest with clear breath sounds bilaterally. No wheezes, rales, or rhonchi. CARDIAC: Regular rate and rhythm. S1 and S2, without murmurs, gallops, or rubs. VASCULAR: No Edema. Peripheral pulses normal and equal in all extremities. ABDOMEN: Soft, non tender and non distended. No rebound or guarding, and no masses palpated. Bowel Sounds normal. MUSCULOSKELETAL: Good range of motion of all major joints. Extremities without clubbing, cyanosis or edema. NEUROLOGIC EXAM: Alert and oriented x 4. no focal sensory or strength deficits. PSYCHIATRIC: Mood normal. SKIN: detail exam as documented in skin assessment - Constitutional Vitals: Temp Pulse Resp BP Pulse Ox 99.0 F 114 H 20 144/58 100 03/13/22 08:45 03/13/22 08:46 03/13/22 08:57 03/13/22 08:46 03/13/22 08:57 General appearance: Present: no acute distress, well-nourished HEART Score - HEART Score Troponin: Troponin T 0.083 ng/mL (0.00-0.029) H 03/13/22 00:22 Results - Labs CBC & Chem 7: 03/13/22 00:22 03/13/22 00:22 Labs: Laboratory Last Values WBC 10.4 K/mm3 (4.5-11.0) 03/13/22 00:22 RBC 3.94 M/mm3 (3.65-5.03) 03/13/22 00:22 Hgb 12.8 gm/dl (11.8-15.2) 03/13/22 00:22 Hct 38.9 % (35.5-45.6) 03/13/22 00:22 MCV 99 fl (84-94) H 03/13/22 00:22 MCH 33 pg (28-32) H 03/13/22 00:22 MCHC 33 % (32-34) 03/13/22 00:22 RDW 15.1 % (13.2-15.2) 03/13/22 00:22 Plt Count 79 K/mm3 (140-440) L 03/13/22 00:22 Lymph % (Auto) [employer] Laboratory Technician 03/13/22 00:22 [place] % (Auto) [facility]allurg[employer] Laboratory Technician 03/13/22 00:22 Eos % (Auto) [facility]all[employer] Laboratory Technician 03/13/22 00:22 Baso % (Auto) [facility] Laboratory Technician 03/13/22 00:22 Lymph # (Auto) [employer] Laboratory Technician 03/13/22 00:22 [place] # (Auto) Metallurg[facility] Laboratory Technician 03/13/22 00:22 Eos # (Auto) [facility]all[facility] Laboratory Technician 03/13/22 00:22 Baso # (Auto) [facility]all[facility] Laboratory Technician 03/13/22 00:22 Seg Neutrophils % [facility] Laboratory Technician 03/13/22 00:22 Seg Neutrophils # [facility] Laboratory Technician 03/13/22 00:22 ABG pH 7.439 pH Units (7.350-7.450) 03/13/22 04:23 ABG pCO2 30.3 mm Hg 03/13/22 04:23 ABG pO2 157.1 mm Hg (80.0-90.0) H 03/13/22 04:23 ABG HCO3 20.0 mmol/L (20.0-26.0) 03/13/22 04: ABG O2 Saturation 99.0 % (95.0-99.0) 03/13/22 04:23 ABG O2 Content 15.3 (0.0-44) 03/13/22 04: ABG Base Excess -3.3 mmol/L (-2.0-3.0) L 03/13/22 04:23 ABG Hemoglobin 11.0 gm/dl (14.0-18.0) L 03/13/22 04:23 ABG Carboxyhemoglobin 0.6 % (0.0-5.0) 03/13/22 04: ABG Methemoglobin 0.8 % (0.0-1.5) 03/13/22 04:23 Oxyhemoglobin 97.6 % (95.0-99.0) 03/13/22 04:23 FiO2 30 % 03/13/22 04:23 Sodium 138 mmol/L (137-145) 03/13/22 00:22 Potassium 3.5 mmol/L (3.6-5.0) L 03/13/22 00:22 Chloride 99.5 mmol/L (98-107) 03/13/22 00:22 Carbon Dioxide 23 mmol/L (22-30) 03/13/22 00:22 Anion Gap 19 mmol/L 03/13/22 00:22 BUN 11 mg/dL (9-20) 03/13/22 00:22 Creatinine 1.0 mg/dL (0.8-1.3) 03/13/22 00:22 Estimated GFR > 60 ml/min 03/13/22 00:22 BUN/Creatinine Ratio 11 % 03/13/22 00:22 Glucose 101 mg/dL (75-100) H 03/13/22 00:22 Lactic Acid 2.60 mmol/L (0.7-2.0) H* 03/13/22 08:29 Calcium 9.4 mg/dL (8.4-10.2) 03/13/22 00:22 Total Bilirubin 0.90 mg/dL (0.1-1.2) 03/13/22 00:22 AST 51 units/L (5-40) H 03/13/22 00:22 ALT 33 units/L (7-56) 03/13/22 00:22 Alkaline Phosphatase 69 units/L (35-129) 03/13/22 00:22 Troponin T 0.083 ng/mL (0.00-0.029) H 03/13/22 00:22 Total Protein 6.4 g/dL (6.3-8.2) 03/13/22 00:22 Albumin 3.9 g/dL (3.9-5) 03/13/22 00:22 Albumin/Globulin Ratio 1.6 % 03/13/22 00:22 Triglycerides 111 mg/dL (2-149) 03/13/22 00:22 Cholesterol 151 mg/dL (50-199) 03/13/22 00:22 LDL Cholesterol Direct 89 mg/dL (50-130) 03/13/22 00:22 HDL Cholesterol 56 mg/dL (40-59) 03/13/22 00:22 Cholesterol/HDL Ratio 2.69 % 03/13/22 00:22 Urine Color Yellow (Yellow) 03/13/22 01:25 Urine Turbidity Slightly cloudy (Clear) 03/13/22 01:25 Urine pH 6.0 (5.0-7.0) 03/13/22 01:25 Ur Specific [place] 1.030 (1.003-1.030) 03/13/22 01:25 Urine Protein 100 mg/dl mg/dL (Negative) 03/13/22 01:25 Urine Glucose (UA) Negative mg/dL (Negative) 03/13/22 01:25 Urine Ketones Trace mg/dL (Negative) 03/13/22 01:25 Urine Blood Large (Negative) A 03/13/22 01:25 Urine Nitrite Negative (Negative) 03/13/22 01:25 Ur Reducing Substances Not Reportable 03/13/22 01:25 Urine Bilirubin Negative (Negative) 03/13/22 01:25 Urine Ictotest Not Reportable 03/13/22 01:25 Urine Urobilinogen 2.0 mg/dL (<2.0) 03/13/22 01:25 Ur Leukocyte Esterase Moderate (Negative) 03/13/22 01:25 Urine WBC (Auto) 151.0 /HPF (0.0-6.0) H 03/13/22 01:25 Urine RBC (Auto) > 182.0 /HPF (0.0-6.0) 03/13/22 01:25 U Epithel Cells (Auto) 1.0 /HPF (0-13.0) 03/13/22 01:25 Urine Bacteria (Auto) 2+ /HPF (Negative) 03/13/22 01:25 Microbiology: Microbiology 03/13/22 00:11 Peripheral/Venous Blood Culture - Preliminary Culture in Progress 03/13/22 00:22 Peripheral/Venous Blood Culture - Preliminary Culture in Progress Active Medications - Current Medications Current Medications: Generic Name Dose Route Start Last Admin Trade Name Freq PRN Reason Stop Dose Admin Acetaminophen 650 mg 03/13/22 04:21 Acetaminophen 325 Mg Tab PO Q4H PRN Pain MILD(1-3)/Fever >100.5/MONTOYA Albuterol 2.5 mg 03/13/22 04:21 Albuterol 2.5 Mg/3 Ml Nebu IH Q3HRT PRN Shortness Of Breath Albuterol/Ipratropium 1 ampul 03/13/22 08:00 03/13/22 08:26 Ipratropium/Albuterol Sulfate 3 Ml Ampul.Neb IH 1 ampul Q6HRT ROBERTO Administration Atorvastatin Calcium 40 mg 03/13/22 10:00 Atorvastatin 40 Mg Tab PO DAILY ROBERTO Dextrose 50 ml 03/13/22 04:21 Dextrose 50% In Water (25gm) 50 Ml Syringe IV Q30MIN PRN Hypoglycemia Protocol Famotidine 20 mg 03/13/22 10:00 Famotidine 20 Mg/2 Ml Inj IV BID ROBERTO Heparin Sodium (Porcine) 5,000 unit 03/13/22 10:00 Heparin 5,000 Unit/1 Ml Vial SUB-Q Q12HR [facility] Sodium Chloride 1,000 mls @ 100 mls/hr 03/13/22 04:30 Nacl 0.9% 1000 Ml IV DIRECT [facility] Piperacillin Sod/Tazobactam Sod 4.5 gm in 100 mls @ 200 mls/hr 03/13/22 08:00 03/13/22 08:53 Zosyn/Ns 4.5gm/100ml IV 200 mls/hr Q8H [facility] Administration Protocol Insulin Human Lispro 0 unit 03/13/22 07:30 03/13/22 08:01 Insulin Lispro 100 Unit/Ml SUB-Q Not Given ACHS [facility] Protocol Miscellaneous Medication 250 mg 03/13/22 10:00 Abiraterone Acetate [Abiraterone Acetate] PO DAILY [facility] Miscellaneous Medication 81 mg 03/13/22 10:00 Asa/Calcium Carb/Mag/Aluminum [Raymond Plus 500 Mg Caplet] PO DAILY [facility] Miscellaneous Medication 5 mg 03/13/22 10:00 Prednisone [Prednisone (Shy) Er Tab] PO QDAY [facility] Morphine Sulfate 2 mg 03/13/22 04:21 Morphine 2 Mg/1 Ml Inj IV Q4H PRN Pain, Moderate (4-6) Morphine Sulfate 4 mg 03/13/22 04:21 Morphine 4 Mg/1 Ml Inj IV Q4H PRN Pain , Severe (7-10) Ondansetron HCl 4 mg 03/13/22 04:21 Ondansetron 4 Mg/2 Ml Inj IV Q8H PRN Nausea And Vomiting Polyethylene Glycol 17 gm 03/13/22 10:00 Polyethylene Glycol 3350 17 Gm Powder PO QDAY ROBERTO Sodium Chloride 10 ml 03/13/22 10:00 Sodium Chloride 0.9% 10 Ml Flush Syringe IV BID ROBERTO Sodium Chloride 10 ml 03/13/22 04:21 Sodium Chloride 0.9% 10 Ml Flush Syringe IV PRN PRN LINE FLUSH
[2022-03-13] MEDS ORDERED: ALUMINUM PO SCH (10:00)
[2022-03-13] MEDS ORDERED: MAG PO SCH (10:00)
[2022-03-13] MEDS ORDERED: ASA PO SCH (10:00)
[2022-03-13] MEDS ORDERED: [UNRECOGNIZED DRUG - OTHER] PO SCH (10:00)
[2022-03-13] MEDS ORDERED: NON-FORMULARY EACH (Prednisone [Prednisone (Rayos) Er Tab] 5 MG Tablet.Dr) PO SCH (10:00)
[2022-03-13] MEDS ORDERED: CALCIUM CARB PO SCH (10:00)
[2022-03-13] MEDS: FAMOTIDINE 20 MG/2 ML INJ IV SCH ×2 (12:00→21:47)
[2022-03-13] MEDS: HEPARIN 5,000 UNIT/1 ML VIAL SUB-Q SCH ×2 (12:00→21:47)
--- NOTE | 2022-03-13 13:34 | Electrocardiograph Report ---
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
--- NOTE | 2022-03-13 14:05 | Consultation ---
History of Present Illness Consult date: 03/13/22 History of present illness: 81 y/o obese male admitted with sepsis thought secondary to urinary source based on UA now found to be covid positive with acute respiratory failure. 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 denies: CABG, PTCA Social history: , lives with family. denies: smoking, alcohol abuse Family history: no significant family history Medications and Allergies Allergies Allergy/AdvReac Type Severity Reaction Status Date / Time No Known Allergies Allergy Unverified 11/08/15 10:54 Home Medications Medication Instructions Recorded Confirmed Last Taken Type ASA/Calcium Carb/Mag/Aluminum 81 mg PO DAILY 06/24/19 06/24/19 06/23/19 History [Raymond Plus 500 mg Caplet] Abiraterone Acetate 250 mg PO DAILY 06/24/19 06/24/19 06/23/19 History AtorvaSTATin [Lipitor] 40 mg PO DAILY 06/24/19 06/24/19 06/23/19 History Degarelix (Nf) [Firmagon (Nf)] 240 mg SQ QMONTH 06/24/19 06/24/19 Unknown History Ondansetron [Zofran ODT TAB] 8 mg PO Q8HR PRN 06/24/19 06/24/19 06/23/19 History Prednisone [predniSONE (Shy) ER 5 mg PO QDAY 06/24/19 06/24/19 06/23/19 History TAB] Pantoprazole [Protonix TAB] 40 mg PO BID #60 tablet 06/28/19 Unknown Rx polyethylene glycoL 3350 [Miralax 17 gm PO QDAY #7 packet 06/28/19 Unknown Rx 3350] Active Meds: Active Medications Acetaminophen (Acetaminophen 325 Mg Tab) 650 mg PO Q4H PRN PRN Reason: Pain MILD(1-3)/Fever >100.5/MONTOYA Albuterol (Albuterol 2.5 Mg/3 Ml Nebu) 2.5 mg IH Q3HRT PRN PRN Reason: Shortness Of Breath Albuterol/Ipratropium (Ipratropium/Albuterol Sulfate 3 Ml Ampul.Neb) 1 ampul IH Q6HRT ROBERTO Last Admin: 03/13/22 08:26 Dose: 1 ampul Atorvastatin Calcium (Atorvastatin 40 Mg Tab) 40 mg PO DAILY [facility] Azithromycin (Azithromycin 250 Mg Tab) 500 mg PO QDAY ROBERTO; Protocol Dexamethasone (Dexamethasone 4 Mg Tab) 10 mg PO Q12HR [facility] Dextrose (Dextrose 50% In Water (25gm) 50 Ml Syringe) 50 ml IV Q30MIN PRN; Protocol PRN Reason: Hypoglycemia Famotidine (Famotidine 20 Mg/2 Ml Inj) 20 mg IV BID [facility] Heparin Sodium (Porcine) (Heparin 5,000 Unit/1 Ml Vial) 5,000 unit SUB-Q Q12HR ROBERTO Sodium Chloride (Nacl 0.9% 1000 Ml) 1,000 mls @ 100 mls/hr IV DIRECT ROBERTO Ceftriaxone Sodium (Rocephin/Ns 1 Gm/50 Ml) 1 gm in 50 mls @ 100 mls/hr IV Q12H [facility]; Protocol Insulin Human Lispro (Insulin Lispro 100 Unit/Ml) 0 unit SUB-Q ACHS ROBERTO; Protocol Last Admin: 03/13/22 08:01 Dose: Not Given Miscellaneous Medication (Abiraterone Acetate [Abiraterone Acetate]) 250 mg PO DAILY [facility] Miscellaneous Medication (Asa/Calcium Carb/Mag/Aluminum [Raymond Plus 500 Mg Caplet]) 81 mg PO DAILY [facility] Miscellaneous Medication (Prednisone [Prednisone (Shy) Er Tab]) 5 mg PO QDAY [facility] Morphine Sulfate (Morphine 2 Mg/1 Ml Inj) 2 mg IV Q4H PRN PRN Reason: Pain, Moderate (4-6) Morphine Sulfate (Morphine 4 Mg/1 Ml Inj) 4 mg IV Q4H PRN PRN Reason: Pain , Severe (7-10) Ondansetron HCl (Ondansetron 4 Mg/2 Ml Inj) 4 mg IV Q8H PRN PRN Reason: Nausea And Vomiting Polyethylene Glycol (Polyethylene Glycol 3350 17 Gm Powder) 17 gm PO QDAY ROBERTO Sodium Chloride (Sodium Chloride 0.9% 10 Ml Flush Syringe) 10 ml IV BID ROBERTO Sodium Chloride (Sodium Chloride 0.9% 10 Ml Flush Syringe) 10 ml IV PRN PRN PRN Reason: LINE FLUSH Physical Examination Vital signs: Vital Signs Temp Pulse Resp BP Pulse Ox 104.6 F H 136 H 30 H 156/90 100 03/12/22 23:35 03/12/22 23:35 03/12/22 23:35 03/12/22 23:35 03/12/22 23:35 Results - Laboratory Findings CBC and BMP: 03/13/22 00:22 03/13/22 00:22 ABG ABG pH 7.439 pH Units (7.350-7.450) 03/13/22 04:23 ABG pCO2 30.3 mm Hg 03/13/22 04:23 ABG pO2 157.1 mm Hg (80.0-90.0) H 03/13/22 04:23 ABG O2 Saturation 99.0 % (95.0-99.0) 03/13/22 04:23 Abnormal lab findings: Abnormal Labs 03/13/22 03/13/22 03/13/22 00:20 00:22 00:22 MCV 99 H MCH 33 H Plt Count 79 L ABG pH 7.495 H ABG pO2 181.8 H ABG O2 Saturation 99.2 H ABG Base Excess ABG Hemoglobin 12.3 L Potassium 3.5 L Glucose 101 H Lactic Acid AST 51 H Troponin T 0.083 H Urine Blood Urine WBC (Auto) SARS-CoV-2 (PCR) 03/13/22 03/13/22 03/13/22 01:25 04:23 08:29 MCV MCH Plt Count ABG pH ABG pO2 157.1 H ABG O2 Saturation ABG Base Excess -3.3 L ABG Hemoglobin 11.0 L Potassium Glucose Lactic Acid 2.60 H* AST Troponin T Urine Blood Large A Urine WBC (Auto) 151.0 H SARS-CoV-2 (PCR) 03/13/22 03/13/22 09:28 11:18 MCV MCH Plt Count ABG pH ABG pO2 ABG O2 Saturation ABG Base Excess ABG Hemoglobin Potassium Glucose Lactic Acid AST Troponin T 0.073 H Urine Blood Urine WBC (Auto) SARS-CoV-2 (PCR) Positive A - Diagnostic Findings Chest x-ray: image reviewed Assessment and Plan 81 y/o male with acute respiratory failure secondary to sepsis and COVID with prostate CA with mets to bone 1. Dexamethasone 10 BID given obesity 2. Sending CRP 3. ID consult secondary to COVID to see if patient requires remdesivir 4. Prone if able 5. Supplemental oxygen 6. Changed zosyn to Rocephin and Azithro 7. Pain control 8. Guarded prognosis.
[2022-03-13] MEDS: POLYETHYLENE GLYCOL 3350 17 GM POWDER PO SCH (14:56)
[2022-03-13] MEDS ORDERED: ALBUTEROL 8.5 GM MDI INHALATION IH PRN (16:30)
[2022-03-13] MEDS: DEXAMETHASONE 4 MG TAB PO SCH (16:35)
[2022-03-13] MEDS: AZITHROMYCIN 250 MG TAB PO SCH (16:36)
[2022-03-13] MEDS: cefTRIAXone/NS 2 GM/100 ML 2 GM/100 ML BAG IV SCH (16:36)
[2022-03-13] MEDS ORDERED: cefTRIAXone/NS 1 GM/50 ML 1 GM/50 ML BAG IV SCH (18:00)
[2022-03-14] MEDS: DEXAMETHASONE 4 MG TAB PO SCH ×2 (02:21→15:15)
--- NOTE | 2022-03-14 04:10 | XRay Report ---
XR chest 1V ap INDICATION / CLINICAL INFORMATION: covid 19 pna. COMPARISON: 03/12/2022 FINDINGS: SUPPORT DEVICES: None. HEART /PULMONARY VASCULATURE: Stable. LUNGS / PLEURA: Markedly low lung volumes remain. Patchy bilateral pulmonary opacities are present, i ncreased. No sizable pleural effusion or pneumothorax. ADDITIONAL FINDINGS: No significant additional findings. IMPRESSION: Worsening bilateral pulmonary opacities. Signer Name: Bryant Alexander MD Signed: 03/14/2022 4:06 AM Workstation Name: [id number]
[2022-03-14] MEDS: IPRATROPIUM/ALBUTEROL SULFATE 3 ML AMPUL.NEB IH SCH ×3 (05:07→19:13)
[2022-03-14 06:13] LABS: Basophils % (Auto) 0.2 % (0.0-1.8); Hematocrit 35.2 % (35.5-45.6); Hemoglobin 11.4 gm/dl (11.8-15.2); Lymphocytes # (Auto) 0.7 K/mm3 (1.2-5.4); Lymphocytes % (Auto) 6.3 % (13.4-35.0); Mean Corpuscular HGB Conc 32 % (32-34); Mean Corpuscular Volume 99 fl (84-94); Monocytes # (Auto) 0.5 K/mm3 (0.0-0.8); Monocytes % (Auto) 4.3 % (0.0-7.3); Red Blood Count 3.56 M/mm3 (3.65-5.03); Red Cell Distribution Width 15.1 % (13.2-15.2)
[2022-03-14 06:24] LABS: Platelet Count 77 K/mm3 (140-440)
[2022-03-14 06:26] LABS: BUN/Creatinine Ratio 13; Blood Urea Nitrogen 12 mg/dL (9-20); Calcium 8.4 mg/dL (8.4-10.2); Hemolysis Index 36
[2022-03-14] MEDS: INSULIN LISPRO 100 UNIT/ML SUB-Q SCH ×4 (07:58→21:46)
[2022-03-14] MEDS: HEPARIN 5,000 UNIT/1 ML VIAL SUB-Q SCH ×2 (10:05→21:45)
[2022-03-14] MEDS: FAMOTIDINE 20 MG TAB PO SCH ×2 (10:05→21:45)
[2022-03-14] MEDS: POLYETHYLENE GLYCOL 3350 17 GM POWDER PO SCH (10:05)
[2022-03-14] MEDS: ABIRATERONE ACETATE 250 MG PO SCH (11:07)
--- NOTE | 2022-03-14 11:17 | Progress Note ---
Assessment and Plan 81 y/o male with acute respiratory failure secondary to sepsis and COVID with prostate CA with mets to bone 03/14/22: Continue steroids at current dosing. Follow up ID recs in regards to Remdesivir, not a candidate for Actemra. Stable for transfer to floor. 1. Dexamethasone 10 BID given obesity 2. Sending CRP 3. ID consult secondary to COVID to see if patient requires remdesivir 4. Prone if able 5. Supplemental oxygen 6. Changed zosyn to Rocephin and Azithro 7. Pain control 8. Guarded prognosis. Subjective Date of service: 03/14/22 Interval history: No acute events. BP stable. No fevers. Sats are good. Objective - Constitutional Vitals: Vital Signs - 12hr 03/14/22 03/14/22 03/14/22 00:00 01:00 02:00 Temperature 98 F Pulse Rate 90 86 88 Pulse Rate [ 89 From Monitor] Respiratory 15 16 17 Rate Blood Pressure 112/52 105/49 105/49 O2 Sat by Pulse 95 95 100 Oximetry 03/14/22 03/14/22 03/14/22 03:00 04:00 05:00 Temperature 98.3 F Pulse Rate 84 82 81 Pulse Rate [ 82 From Monitor] Respiratory 16 14 14 Rate Blood Pressure 119/69 135/66 118/76 O2 Sat by Pulse 99 100 100 Oximetry 03/14/22 03/14/22 03/14/22 06:00 07:00 07:12 Temperature 98.0 F Pulse Rate 84 78 Pulse Rate [ From Monitor] Respiratory 13 13 Rate Blood Pressure 118/76 119/69 O2 Sat by Pulse 97 99 Oximetry 03/14/22 03/14/22 03/14/22 08:00 09:00 10:00 Temperature Pulse Rate 75 80 95 H Pulse Rate [ 85 From Monitor] Respiratory 21 12 19 Rate Blood Pressure 130/79 120/87 149/61 O2 Sat by Pulse 99 97 95 Oximetry - Labs CBC & Chem 7: 03/14/22 05:23 03/14/22 05:23 Labs: Abnormal lab results 03/13/22 03/13/22 03/13/22 Range/Units 11:18 14:03 21:49 RBC (3.65-5.03) M/mm3 Hgb (11.8-15.2) gm/dl Hct (35.5-45.6) % MCV (84-94) fl Plt Count (140-440) K/mm3 Lymph % (Auto) (13.4-35.0) % Lymph # (Auto) (1.2-5.4) K/mm3 Seg Neutrophils % (40.0-70.0) % Seg Neutrophils # (1.8-7.7) K/mm3 D-Dimer (0-234) ng/mlDDU Chloride (98-107) mmol/L Glucose (75-100) mg/dL POC Glucose 114 H (70-105) mg/dL Lactate Dehydrogenase (91-180) units/L Troponin T 0.074 H (0.00-0.029) ng/mL C-Reactive Protein (0.00-1.30) mg/dL SARS-CoV-2 (PCR) Positive A (Negative) 03/14/22 03/14/22 03/14/22 Range/Units 05:23 05:23 05:23 RBC 3.56 L (3.65-5.03) M/mm3 Hgb 11.4 L (11.8-15.2) gm/dl Hct 35.2 L (35.5-45.6) % MCV 99 H (84-94) fl Plt Count 77 L (140-440) K/mm3 Lymph % (Auto) 6.3 L (13.4-35.0) % Lymph # (Auto) 0.7 L (1.2-5.4) K/mm3 Seg Neutrophils % 89.2 H (40.0-70.0) % Seg Neutrophils # 9.6 H (1.8-7.7) K/mm3 D-Dimer 895.26 H (0-234) ng/mlDDU Chloride 107.1 H (98-107) mmol/L Glucose 133 H (75-100) mg/dL POC Glucose (70-105) mg/dL Lactate Dehydrogenase 378 H (91-180) units/L Troponin T (0.00-0.029) ng/mL C-Reactive Protein 15.10 H (0.00-1.30) mg/dL SARS-CoV-2 (PCR) (Negative) Medications & Allergies - Medications Allergies/Adverse Reactions: Allergies No Known Allergies Allergy (Unverified 11/08/15 10:54) Home Medications: Home Medications Medication Instructions Recorded Confirmed Last Taken Type ASA/Calcium Carb/Mag/Aluminum 81 mg PO DAILY 06/24/19 06/24/19 06/23/19 History [Raymond Plus 500 mg Caplet] Abiraterone Acetate 250 mg PO DAILY 06/24/19 03/13/22 06/23/19 History AtorvaSTATin [Lipitor] 40 mg PO DAILY 06/24/19 03/13/22 06/23/19 History Degarelix (Nf) [Firmagon (Nf)] 240 mg SQ QMONTH 06/24/19 06/24/19 Unknown History Ondansetron [Zofran ODT TAB] 8 mg PO Q8HR PRN 06/24/19 03/13/22 06/23/19 History Prednisone [predniSONE (Shy) ER 5 mg PO QDAY 06/24/19 03/13/22 06/23/19 History TAB] Pantoprazole [Protonix TAB] 40 mg PO BID #60 tablet 06/28/19 03/13/22 Unknown Rx polyethylene glycoL 3350 [Miralax 17 gm PO QDAY #7 packet 06/28/19 Unknown Rx 3350] Active Medications: Generic Name Dose Route Start Last Admin Trade Name Freq PRN Reason Stop Dose Admin Acetaminophen 650 mg 03/13/22 04:21 03/13/22 20:07 Acetaminophen 325 Mg Tab PO 650 mg Q4H PRN Administration Pain MILD(1-3)/Fever >100.5/MONTOYA Albuterol 2 puff 03/13/22 16:30 Albuterol 8.5 Gm Mdi Inhalation IH Q4HRT PRN Shortness Of Breath Albuterol/Ipratropium 1 ampul 03/13/22 08:00 03/14/22 05:07 Ipratropium/Albuterol Sulfate 3 Ml Ampul.Neb IH Not Given Q6HRT ROBERTO Atorvastatin Calcium 40 mg 03/13/22 10:00 03/14/22 10:05 Atorvastatin 40 Mg Tab PO 40 mg DAILY ROBERTO Administration Azithromycin 500 mg 03/13/22 16:00 03/13/22 16:36 Azithromycin 250 Mg Tab PO 500 mg Q24H ROBERTO Administration Protocol Dexamethasone 10 mg 03/13/22 14:00 03/14/22 02:21 Dexamethasone 4 Mg Tab PO 10 mg Q12H ROBERTO Administration Dextrose 50 ml 07/04/22 04:21 Dextrose 50% In Water (25gm) 50 Ml Syringe IV Q30MIN PRN Hypoglycemia Protocol Famotidine 20 mg 03/14/22 10:00 03/14/22 10:05 Famotidine 20 Mg Tab PO 20 mg BID ROBERTO Administration Heparin Sodium (Porcine) 5,000 unit 03/13/22 10:00 03/14/22 10:05 Heparin 5,000 Unit/1 Ml Vial SUB-Q 5,000 unit Q12HR ROBERTO Administration Ceftriaxone Sodium 2 gm in 100 mls @ 200 mls/hr 03/13/22 16:00 03/13/22 16:36 Rocephin/Ns 2 Gm/100 Ml IV 200 mls/hr Q24H ROBERTO Administration Insulin Human Lispro 0 unit 03/13/22 07:30 03/14/22 07:58 Insulin Lispro 100 Unit/Ml SUB-Q Not Given ACHS ROBERTO Protocol Miscellaneous Medication 1,000 mg 03/14/22 10:00 03/14/22 11:07 Abiraterone Acetate [Abiraterone Acetate] PO 1,000 mg DAILY ROBERTO Administration Ondansetron HCl 4 mg 03/13/22 04:21 Ondansetron 4 Mg/2 Ml Inj IV Q8H PRN Nausea And Vomiting Polyethylene Glycol 17 gm 03/13/22 10:00 03/14/22 10:05 Polyethylene Glycol 3350 17 Gm Powder PO 17 gm QDAY ROBERTO Administration Sodium Chloride 10 ml 03/13/22 10:00 03/14/22 10:06 Sodium Chloride 0.9% 10 Ml Flush Syringe IV 10 ml BID ROBERTO Administration Sodium Chloride 10 ml 03/13/22 04:21 Sodium Chloride 0.9% 10 Ml Flush Syringe IV PRN PRN LINE FLUSH HEART Score - HEART Score Troponin: Troponin T 0.074 ng/mL (0.00-0.029) H 03/13/22 14:03
--- NOTE | 2022-03-14 11:24 | Consultation ---
History of Present Illness - Reason for Consult Consult date: 03/14/22 COVID-19 Requesting physician: ALYSSA MARTINEZ - History of Present Illness The patient is a 81-year-old male with diabetes, hypertension, morbid obesity, prostate cancer with metastatic bone disease was admitted to the hospital with fever, tachycardia, hypotension and shortness of breath. T-max was 104 F on admission. Patient tested positive for COVID-19, infectious diseases was consulted for additional evaluation. Currently on ceftriaxone, azithromycin, Decadron. Hypoxic requiring supplemental oxygen by nasal cannula. Labs revealed WBC 10.4, platelets 79, D-dimer 895, CRP 15.1, ferritin 225, troponin 0.074. Chest x-ray with low volumes bilaterally Review of Systems: reviewed in the chart, unable to obtain, minimize risk of transmission Past History Past Medical History: anemia, cancer (prostate CA w mets to bone), diabetes, other (PUD) Past Surgical History: No surgical history. denies: CABG, PTCA Social history: , lives with family. denies: smoking, alcohol abuse Family history: no significant family history Medications and Allergies Allergies Allergy/AdvReac Type Severity Reaction Status Date / Time No Known Allergies Allergy Unverified 11/08/15 10:54 Home Medications Medication Instructions Recorded Confirmed Last Taken Type ASA/Calcium Carb/Mag/Aluminum 81 mg PO DAILY 06/24/19 06/24/19 06/23/19 History [Arymond Plus 500 mg Caplet] Abiraterone Acetate 250 mg PO DAILY 06/24/19 03/13/22 06/23/19 History AtorvaSTATin [Lipitor] 40 mg PO DAILY 06/24/19 03/13/22 06/23/19 History Degarelix (Nf) [Firmagon (Nf)] 240 mg SQ QMONTH 06/24/19 06/24/19 Unknown History Ondansetron [Zofran ODT TAB] 8 mg PO Q8HR PRN 06/24/19 03/13/22 06/23/19 History Prednisone [predniSONE (Shy) ER 5 mg PO QDAY 06/24/19 03/13/22 06/23/19 History TAB] Pantoprazole [Protonix TAB] 40 mg PO BID #60 tablet 06/28/19 03/13/22 Unknown Rx polyethylene glycoL 3350 [Miralax 17 gm PO QDAY #7 packet 06/28/19 Unknown Rx 3350] Active Meds: Active Medications Acetaminophen (Acetaminophen 325 Mg Tab) 650 mg PO Q4H PRN PRN Reason: Pain MILD(1-3)/Fever >100.5/MONTOYA Last Admin: 03/13/22 20:07 Dose: 650 mg Albuterol (Albuterol 8.5 Gm Mdi Inhalation) 2 puff IH Q4HRT PRN PRN Reason: Shortness Of Breath Albuterol/Ipratropium (Ipratropium/Albuterol Sulfate 3 Ml Ampul.Neb) 1 ampul IH Q6HRT [facility] Last Admin: 03/14/22 05:07 Dose: Not Given Atorvastatin Calcium (Atorvastatin 40 Mg Tab) 40 mg PO DAILY [facility] Last Admin: 03/14/22 10:05 Dose: 40 mg Azithromycin (Azithromycin 250 Mg Tab) 500 mg PO Q24H [facility]; Protocol Last Admin: 03/13/22 16:36 Dose: 500 mg Dexamethasone (Dexamethasone 4 Mg Tab) 10 mg PO Q12H [facility] Last Admin: 03/14/22 02:21 Dose: 10 mg Dextrose (Dextrose 50% In Water (25gm) 50 Ml Syringe) 50 ml IV Q30MIN PRN; Protocol PRN Reason: Hypoglycemia Famotidine (Famotidine 20 Mg Tab) 20 mg PO BID [facility] Last Admin: 03/14/22 10:05 Dose: 20 mg Heparin Sodium (Porcine) (Heparin 5,000 Unit/1 Ml Vial) 5,000 unit SUB-Q Q12HR [facility] Last Admin: 03/14/22 10:05 Dose: 5,000 unit Ceftriaxone Sodium (Rocephin/Ns 2 Gm/100 Ml) 2 gm in 100 mls @ 200 mls/hr IV Q24H [facility] Last Admin: 03/13/22 16:36 Dose: 200 mls/hr Remdesivir 200 mg/ Sodium (Chloride) 250 mls @ 500 mls/hr IV ONCE ONE Stop: 03/14/22 11:46 Remdesivir 100 mg/ Sodium (Chloride) 250 mls @ 500 mls/hr IV Q24HR@1400 [facility] Stop: 03/18/22 14:29 Insulin Human Lispro (Insulin Lispro 100 Unit/Ml) 0 unit SUB-Q ACHS [facility]; Protocol Last Admin: 03/14/22 07:58 Dose: Not Given Miscellaneous Medication (Abiraterone Acetate [Abiraterone Acetate]) 1,000 mg PO DAILY [facility] Last Admin: 03/14/22 11:07 Dose: 1,000 mg Ondansetron HCl (Ondansetron 4 Mg/2 Ml Inj) 4 mg IV Q8H PRN PRN Reason: Nausea And Vomiting Polyethylene Glycol (Polyethylene Glycol 3350 17 Gm Powder) 17 gm PO QDAY [facility] Last Admin: 03/14/22 10:05 Dose: 17 gm Sodium Chloride (Sodium Chloride 0.9% 10 Ml Flush Syringe) 10 ml IV BID [facility] Last Admin: 03/14/22 10:06 Dose: 10 ml Sodium Chloride (Sodium Chloride 0.9% 10 Ml Flush Syringe) 10 ml IV PRN PRN PRN Reason: LINE FLUSH Sodium Chloride (Sodium Chloride 0.9% 50 Ml Ivpb) 50 ml IV Q24HR@1400 [facility] Stop: 03/18/22 14:01 Physical Examination - Physical Exam Narrative exam: Physical Exam (reviewed in chart to minimize risk of transmission) Constitutional: deferred Head, Ears, Nose: deferred Eyes: deferred Neck: deferred Oral: deferred Cardiovascular: deferred Respiratory: deferred GI: deferred Musculoskeletal: deferred Skin: deferred Hem/Lymphatic: deferred Psych: deferred Neurological: deferred - Constitutional Vitals: Vital Signs Temp Pulse Resp BP Pulse Ox 98.0 F 82 19 149/61 95 03/14/22 07:12 03/14/22 10:00 03/14/22 10:00 03/14/22 10:00 03/14/22 10:00 Temperature -Last 24 Hours Temperature 98.0 F Temperature 98.3 F Temperature 98 F Temperature 98.0 F Temperature 101.4 F Temperature 101.4 F Temperature 101.2 F Temperature 98.2 F Temperature 98.8 F Results - Labs CBC & Chem 7: 03/14/22 05:23 03/14/22 05:23 Labs: Abnormal lab results 03/13/22 03/13/22 03/13/22 Range/Units 11:18 14:03 21:49 RBC (3.65-5.03) M/mm3 Hgb (11.8-15.2) gm/dl Hct (35.5-45.6) % MCV (84-94) fl Plt Count (140-440) K/mm3 Lymph % (Auto) (13.4-35.0) % Lymph # (Auto) (1.2-5.4) K/mm3 Seg Neutrophils % (40.0-70.0) % Seg Neutrophils # (1.8-7.7) K/mm3 D-Dimer (0-234) ng/mlDDU Chloride (98-107) mmol/L Glucose (75-100) mg/dL POC Glucose 114 H (70-105) mg/dL Lactate Dehydrogenase (91-180) units/L Troponin T 0.074 H (0.00-0.029) ng/mL C-Reactive Protein (0.00-1.30) mg/dL SARS-CoV-2 (PCR) Positive A (Negative) 03/14/22 03/14/22 03/14/22 Range/Units 05:23 05:23 05:23 RBC 3.56 L (3.65-5.03) M/mm3 Hgb 11.4 L (11.8-15.2) gm/dl Hct 35.2 L (35.5-45.6) % MCV 99 H (84-94) fl Plt Count 77 L (140-440) K/mm3 Lymph % (Auto) 6.3 L (13.4-35.0) % Lymph # (Auto) 0.7 L (1.2-5.4) K/mm3 Seg Neutrophils % 89.2 H (40.0-70.0) % Seg Neutrophils # 9.6 H (1.8-7.7) K/mm3 D-Dimer 895.26 H (0-234) ng/mlDDU Chloride 107.1 H (98-107) mmol/L Glucose 133 H (75-100) mg/dL POC Glucose (70-105) mg/dL Lactate Dehydrogenase 378 H (91-180) units/L Troponin T (0.00-0.029) ng/mL C-Reactive Protein 15.10 H (0.00-1.30) mg/dL SARS-CoV-2 (PCR) (Negative) - Imaging and Cardiology Chest x-ray: report reviewed, image reviewed (low volumes b/l) Assessment and Plan Cultures: SARS CoV2 PCR: Positive 03/13/2022 blood culture: No growth A/P: 81-year-old male with diabetes, hypertension, morbid obesity admitted with: #Sepsis, likely secondary to COVID-19 #Acute hypoxic respiratory failure: Initially required BiPAP, now on nasal cannula. #Mild transaminitis: Probably secondary to COVID-19 #Elevated troponin #Acute thrombocytopenia: Could be from viral illness #UTI: UA showed pyuria. Urine culture in process. Recs: -IV/PO Dexamethasone x 10 days -IV remdesivir x 5 days, ordered -if hypoxia worsens to requiring HFNC >30 L/min, CRP >7.5, candidate for Actemra (depending on availability) -prophylactic anticoagulation based on d-dimer per hospital protocol -Continue 5 days of ceftriaxone, azithromycin -trend ferritin, d-dimer, CRP every 2-3 days Mauricio Doyle MD, FACP, [facility] ([facility] O: [phone] F: [phone] C: [phone]
[2022-03-14] MEDS ORDERED: REMDESIVIR 200 MG in SODIUM CHLORIDE 0.9% 250ML 250 ML IV SCH (12:00)
--- NOTE | 2022-03-14 12:14 | Progress Note ---
Assessment and Plan Pt is a 81-year-old male with a hx of prostate CA w mets to bone (currently undergoing treatment), mild HTN, and DM2 who presented with complaints of bilateral lower extremity weakness and dyspnea Assessment: Acute Respiratory Failure - improving Sepsis COVID-19 Thrombocytopenia - H/H stable otherwise. Management per primary. Hypotension (resolved) Elevated Tn - ?Type 2 NH Chronic LBBB BLE Weakness H/o HTN DM2 Prostate CA w Mets to Bone (actively undergoing treatment) Chronic Lymphedema Obesity H/o GIB/PUD Echo 08/2021: LVEF 60-65%. Mild LVH. Normal LA pressure with grade 1 diastolic dysfunction. No pericardial effusion. Lexiscan stress MPI 08/2021: Technically difficult but no evidence of a significant degree of ischemia or prior infarction. Normal LV systolic performance. Outpatient cardiac medications: ASA 81mg, Atorvastatin 40mg, Lopressor 25mg BID Plan: Cardiac enzymes remain flat. No c/o CP today. Recent echo and stress test reviewed (as above). Ischemic evaluation when clinically stable, as outpatient, and after adequate recovery from COVID-19. Continue present mgmt per Primary/Pulm. Will defer to Primary for workup of reported "sudden leg weakness." Suspect generalized weakness in the setting of viral illness as opposed to neurologic event. Overall stable from cardiac standoint. We will see PRN. F/u in 2 weeks as scheduled for OP F/U 03/31/22 @ 2:[address] Hernandez, [place] location. (Dr. JOCELYNE Mcdaniels out of town). Pt seen in conjunction with Dr. Hernandez, who agrees with the assessment and plan of care. Subjective Date of service: 03/14/22 Principal diagnosis: Weakness, Dyspnea Interval history: Patient seen and examined at bedside today. He has no cardiac complaints. He is chest pain-free. Telemetry: Sinus rhythm 80s. Objective Vital Signs Temp Pulse Pulse Resp BP Pulse Ox 03/14/22 10:00 95 H 19 149/61 95 03/14/22 09:00 80 12 120/87 97 03/14/22 08:00 75 85 21 130/79 99 03/14/22 07:12 98.0 F 03/14/22 07:00 78 13 119/69 99 03/14/22 06:00 84 13 118/76 97 03/14/22 05:00 81 14 118/76 100 03/14/22 04:00 98.3 F 82 82 14 135/66 100 03/14/22 03:00 84 16 119/69 99 03/14/22 02:00 88 17 105/49 100 03/14/22 01:00 86 16 105/49 95 03/14/22 00:00 98 F 90 89 15 112/52 95 03/13/22 23:00 96 H 16 97/50 95 03/13/22 22:32 105 H 18 109/52 84 03/13/22 22:00 99 H 24 109/52 98 03/13/22 21:36 103 H 03/13/22 21:30 101 H 18 92/53 97 03/13/22 21:20 103 H 20 92/53 95 03/13/22 21:10 104 H 21 92/53 95 03/13/22 21:00 105 H 20 92/53 95 03/13/22 20:50 114 H 17 97/61 91 03/13/22 20:40 115 H 14 97/61 96 03/13/22 20:30 106 H 20 97/61 98 03/13/22 20:20 103 H 18 97/61 98 03/13/22 20:10 109 H 22 97/61 98 03/13/22 20:00 101.4 F H 103 H 19 88/53 98 03/13/22 19:59 105 H 20 98 03/13/22 19:51 101.2 F H 03/13/22 19:50 104 H 19 103/62 97 03/13/22 19:40 103 H 20 103/62 99 03/13/22 19:30 102 H 19 104/59 100 03/13/22 19:22 98 03/13/22 19:20 104 H 20 104/59 97 03/13/22 19:10 106 H 20 104/59 97 03/13/22 19:00 112 H 19 104/59 95 03/13/22 18:50 106 H 21 114/54 95 03/13/22 18:40 111 H 21 114/54 97 03/13/22 18:30 107 H 21 114/54 96 03/13/22 18:20 106 H 42 H 114/54 98 03/13/22 18:10 112 H 19 114/54 99 03/13/22 18:00 112 H 19 114/54 97 07/04/22 17:50 110 H 19 135/57 98 03/13/22 17:40 111 H 18 135/57 99 03/13/22 17:30 114 H 21 135/57 98 03/13/22 17:20 117 H 21 135/57 99 03/13/22 17:10 115 H 19 135/57 99 03/13/22 17:00 115 H 21 135/57 99 03/13/22 16:50 116 H 21 124/59 99 03/13/22 16:40 118 H 15 124/59 99 03/13/22 16:30 111 H 26 H 124/59 99 03/13/22 16:20 117 H 23 124/59 98 03/13/22 16:10 116 H 20 124/59 98 03/13/22 16:00 98.2 F 118 H 112 H 13 124/59 98 03/13/22 15:50 118 H 23 104/63 98 03/13/22 15:40 121 H 22 104/63 100 03/13/22 15:30 121 H 23 104/63 99 03/13/22 15:20 122 H 22 104/63 100 03/13/22 15:10 116 H 22 104/63 99 03/13/22 15:00 118 H 21 104/63 99 03/13/22 14:50 117 H 21 116/62 100 03/13/22 14:40 117 H 16 116/62 98 03/13/22 14:30 120 H 24 116/62 99 03/13/22 14:20 125 H 17 116/62 83 L 03/13/22 14:10 123 H 22 116/62 98 03/13/22 14:00 117 H 20 116/62 98 03/13/22 13:50 120 H 20 111/54 98 03/13/22 13:40 119 H 21 111/54 99 03/13/22 13:30 117 H 18 111/54 98 03/13/22 13:20 116 H 19 111/54 97 03/13/22 13:10 123 H 18 111/54 98 03/13/22 13:00 115 H 19 111/54 99 03/13/22 12:50 117 H 21 136/52 100 03/13/22 12:40 124 H 24 136/52 99 07/04/22 12:30 121 H 22 136/52 99 03/13/22 12:20 121 H 22 136/52 99 - Physical Examination General: No Apparent Distress HEENT: Positive: EOMI, Normocephaly Neck: Negative: JVD/HJR Cardiac: Positive: Reg Rate and Rhythm, S1/S2. Negative: Audible Murmur Lungs: Positive: Decreased Breath Sounds Neuro: Positive: Grossly Intact Abdomen: Positive: Soft, Active Bowel Sounds. Negative: Tender Skin: Negative: Rash Musculoskeletal: No Pain Extremities: Present: edema (chronic BLE lymphedema), warm - Labs and Meds Cardiac Enzymes 03/14/22 Range/Units 05:23 Lactate Dehydrogenase 378 H (91-180) units/L CBC 03/14/22 Range/Units 05:23 WBC 10.7 (4.5-11.0) K/mm3 RBC 3.56 L (3.65-5.03) M/mm3 Hgb 11.4 L (11.8-15.2) gm/dl Hct 35.2 L (35.5-45.6) % Plt Count 77 L (140-440) K/mm3 Lymph # (Auto) 0.7 L (1.2-5.4) K/mm3 [place] # (Auto) 0.5 (0.0-0.8) K/mm3 Eos # (Auto) 0.0 (0.0-0.4) K/mm3 Baso # (Auto) 0.0 (0.0-0.1) K/mm3 Comprehensive Metabolic Panel 03/14/22 Range/Units 05:23 Sodium 143 (137-145) mmol/L Potassium 4.0 (3.6-5.0) mmol/L Chloride 107.1 H (98-107) mmol/L Carbon Dioxide 22 (22-30) mmol/L BUN 12 (9-20) mg/dL Creatinine 0.9 (0.8-1.3) mg/dL Glucose 133 H (75-100) mg/dL Calcium 8.4 (8.4-10.2) mg/dL - Imaging and Cardiology EKG: report reviewed, image reviewed Echo: report reviewed - Telemetry EKG Rhythm: Sinus Rhythm - EKG Sinus rhythms and dysrhythmias: sinus tachycardia AV and intraventricular conduction: left bundle branch block - Allied health notes Allied health notes reviewed: nursing
[2022-03-14] MEDS ORDERED: SODIUM CHLORIDE 0.9% 250ML 250 ML ONE (12:52)
--- NOTE | 2022-03-14 15:00 | Progress Note ---
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 Decadron iv intiated. ID consultation for covid infection/viral pn eumonia tx. case d/w PCCM Dr. Sanchez. 03/14: Remains stable on 3L NC, VSS. Continue current empiric IV Abx, and PO decadronX 10days. ID on consulted, Remdesevir initiated for 5days. Thrombocytopenia since admit, H&H stable. No s/s of any active bleeding. Given patient CA history and current COVID + will continue VTE proph for now, close monitoring of platelet count. Patient is stable for transfer to the floor. PT/OT ordered. Assessment and Plan: #Acute hypoxic respiratory failure 2/2 #COVID 19 Pneumonia -Presented with difficultly breathing required continuous Bipap -CXR reveals worsening bilateral pulmonary opacities -COVID PCR positive -Currently stable on 3L NC -Empiric IV Abx- Rocephin and Azithro -[id number] and PO decadron initiated -ID and CCM on consult appreciate, recommendations -Continue O2 supplementation wean as tolerated -Continue SPO2 monitoring for SPO2 goal above 92% #COVID 19 Infection #Viral Pneumonia/COVID PNA #Urinary Tract Infection -Presented with high fever TMAMX 104.3 -covid 19 rt pcr positive -bcx/scx pending -ID Consulted, appreciate recommendations -Empiric IV Abx- Rocephin and Azithro -[id number] and PO decadron initiated -trend fever/wbc curve -PCCM also on consultation #Hypotension-resolved #Troponin Elevation #H/o Hyperlipidemia and Hypertension -Presented with hypotension, resolved post IV hydration -likely due to infectious process -BP stable this am -Hold home antihypertensive for now -Cardiology also consulted, appreciated recommendations -Recent echo noted, EF greater than 70%, see report for detail -Continue blood pressure monitor per protocol -Maintain MAP above 65 -Continue AC- Hep SubQ for VTE proph #Thrombocytopenia (POA) -Presented with low plt -H&H stable, no s/s of any active bleeding -Given patient CA history and current COVID + will continue VTE proph for now -close monitoring of platelet count, trend CBC #Type 2 Diabetes with Hyperglycemia -home regimen: Unknown -current regimen: Moderate SSI -blood glucose goal 140-180 while inpatient -continue to monitor #Prostate CA w/ Mets to Bone -currently undergoing treatment at [facility] -Last treatment was in Jan, 2022. Next treatment is in April, -Follow up outpatient with own ONC for treatment #Morbid Obesity - BMI 39.0 - Counseled patient on the importance of weight loss, incorporating exercise, and dietary changes (lean meats, fresh fruits and vegetables, and water intake). Patient expresses understanding. #GI/DVT Prophylaxis -PPI- Pepcid -Heparin SubQ -SCDs to bilateral lower extremities while in bed #Advance Care Planning -Disease education data, care plan, diagnoses, and prognosis were discussed with patient at the bedside. Patient is a FULL code. Patient acknowledged under standing and agreement with current care plan. The high probability of a clinically significant, sudden or life threatening deterioration of the [multiple] system(s) required my full and direct attention, intervention and personal management. The aggregate critical care time was [60] minutes. This time is in addition to time spent performing reported procedures but includes the following: [x] Data Review and interpretation [x] Patient assessment and monitoring of vital signs [x] Documentation [x] Medication orders and management Disposition Plan: Transfer to the floor Total Time Spent with Patient (Minutes): 60 History Interval history: Patient seen and examined at the bedside. Fully AAO, om 3L NC, denied any pain nor any discomfort at this time, VSS. FREDDIE overnight Hospitalist Physical - Constitutional Vitals: Temp Pulse Resp BP Pulse Ox 98.4 F 80 18 149/60 97 03/14/22 12:00 03/14/22 14:00 03/14/22 14:00 03/14/22 14:00 03/14/22 14:00 General appearance: Present: no acute distress, well-nourished, obese - EENT Eyes: Present: PERRL ENT: hearing intact - Neck Neck: Present: normal ROM - Respiratory Respiratory effort: normal Respiratory: bilateral: diminished - Cardiovascular Rhythm: regular Heart Sounds: Present: S1 & S2 - Extremities Extremities: no ischemia, pulses intact, pulses symmetrical Extremity abnormal: edema - Peripheral Assessment Generalized Edema Type: Non-pitting Edema Degree: 2+ Capillary Refill: < 3 seconds Skin Temperature: Warm Peripheral Pulses: within normal limits - Abdominal General gastrointestinal: soft, non-distended, normal bowel sounds - Integumentary Integumentary: Present: warm, dry - Psychiatric Psychiatric: appropriate mood/affect, cooperative - Neurologic Neurologic: CNII-XII intact, moves all extremities - Allied Health Allied health notes reviewed: nursing, case management HEART Score - HEART Score Troponin: Troponin T 0.074 ng/mL (0.00-0.029) H 03/13/22 14:03 Results - Labs CBC & Chem 7: 03/14/22 05:23 03/14/22 05:23 Labs: Laboratory Last Values WBC 10.7 K/mm3 (4.5-11.0) 03/14/22 05:23 RBC 3.56 M/mm3 (3.65-5.03) L 03/14/22 05:23 Hgb 11.4 gm/dl (11.8-15.2) L 03/14/22 05:23 Hct 35.2 % (35.5-45.6) L 03/14/22 05:23 MCV 99 fl (84-94) H 03/14/22 05:23 MCH 32 pg (28-32) 03/14/22 05:23 MCHC 32 % (32-34) 03/14/22 05:23 RDW 15.1 % (13.2-15.2) 03/14/22 05:23 Plt Count 77 K/mm3 (140-440) L 03/14/22 05:23 Lymph % (Auto) 6.3 % (13.4-35.0) L 03/14/22 05:23 Letcher % (Auto) 4.3 % (0.0-7.3) 03/14/22 05:23 Eos % (Auto) 0.0 % (0.0-4.3) 03/14/22 05:23 Baso % (Auto) 0.2 % (0.0-1.8) 03/14/22 05:23 Lymph # (Auto) 0.7 K/mm3 (1.2-5.4) L 03/14/22 05:23 Letcher # (Auto) 0.5 K/mm3 (0.0-0.8) 03/14/22 05:23 Eos # (Auto) 0.0 K/mm3 (0.0-0.4) 03/14/22 05:23 Baso # (Auto) 0.0 K/mm3 (0.0-0.1) 03/14/22 05:23 Seg Neutrophils % 89.2 % (40.0-70.0) H 03/14/22 05:23 Seg Neutrophils # 9.6 K/mm3 (1.8-7.7) H 03/14/22 05:23 D-Dimer 895.26 ng/mlDDU (0-234) H 03/14/22 05:23 ABG pH 7.439 pH Units (7.350-7.450) 03/13/22 04:23 ABG pCO2 30.3 mm Hg 03/13/22 04:23 ABG pO2 157.1 mm Hg (80.0-90.0) H 03/13/22 04:23 ABG HCO3 20.0 mmol/L (20.0-26.0) 03/13/22 04:23 ABG O2 Saturation 99.0 % (95.0-99.0) 03/13/22 04: ABG O2 Content 15.3 (0.0-44) 03/13/22 04:23 ABG Base Excess -3.3 mmol/L (-2.0-3.0) L 03/13/22 04:23 ABG Hemoglobin 11.0 gm/dl (14.0-18.0) L 03/13/22 04:23 ABG Carboxyhemoglobin 0.6 % (0.0-5.0) 03/13/22 04:23 ABG Methemoglobin 0.8 % (0.0-1.5) 03/13/22 04: Oxyhemoglobin 97.6 % (95.0-99.0) 03/13/22 04:23 FiO2 30 % 03/13/22 04:23 Sodium 143 mmol/L (137-145) 03/14/22 05:23 Potassium 4.0 mmol/L (3.6-5.0) 03/14/22 05:23 Chloride 107.1 mmol/L (98-107) H 03/14/22 05:23 Carbon Dioxide 22 mmol/L (22-30) 03/14/22 05:23 Anion Gap 18 mmol/L 03/14/22 05:23 BUN 12 mg/dL (9-20) 03/14/22 05:23 Creatinine 0.9 mg/dL (0.8-1.3) 03/14/22 05:23 Estimated GFR > 60 ml/min 03/14/22 05:23 BUN/Creatinine Ratio 13 % 03/14/22 05:23 Glucose 133 mg/dL (75-100) H 03/14/22 05:23 POC Glucose 114 mg/dL (70-105) H 03/13/22 21:49 Lactic Acid 2.60 mmol/L (0.7-2.0) H* 03/13/22 08:29 Calcium 8.4 mg/dL (8.4-10.2) 03/14/22 05:23 Ferritin 225.9 ng/mL (30.0-300.0) 03/14/22 05:23 Total Bilirubin 0.90 mg/dL (0.1-1.2) 03/13/22 00:22 AST 51 units/L (5-40) H 03/13/22 00:22 ALT 33 units/L (7-56) 03/13/22 00:22 Alkaline Phosphatase 69 units/L (35-129) 03/13/22 00:22 Lactate Dehydrogenase 378 units/L (91-180) H 03/14/22 05:23 Troponin T 0.074 ng/mL (0.00-0.029) H 03/13/22 14:03 C-Reactive Protein 15.10 mg/dL (0.00-1.30) H 03/14/22 05:23 Total Protein 6.4 g/dL (6.3-8.2) 03/13/22 00:22 Albumin 3.9 g/dL (3.9-5) 03/13/22 00:22 Albumin/Globulin Ratio 1.6 % 03/13/22 00:22 Triglycerides 111 mg/dL (2-149) 03/13/22 00:22 Cholesterol 151 mg/dL (50-199) 03/13/22 00:22 LDL Cholesterol Direct 89 mg/dL (50-130) 03/13/22 00:22 HDL Cholesterol 56 mg/dL (40-59) 03/13/22 00:22 Cholesterol/HDL Ratio 2.69 % 03/13/22 00:22 Procalcitonin 2.80 ng/mL (<0.15) 03/14/22 05:34 Urine Color Yellow (Yellow) 03/13/22 01:25 Urine Turbidity Slightly cloudy (Clear) 03/13/22 01:25 Urine pH 6.0 (5.0-7.0) 03/13/22 01:25 Ur Specific [place] 1.030 (1.003-1.030) 03/13/22 01:25 Urine Protein 100 mg/dl mg/dL (Negative) 03/13/22 01:25 Urine Glucose (UA) Negative mg/dL (Negative) 03/13/22 01:25 Urine Ketones Trace mg/dL (Negative) 03/13/22 01:25 Urine Blood Large (Negative) A 03/13/22 01:25 Urine Nitrite Negative (Negative) 03/13/22 01:25 Ur Reducing Substances Not Reportable 03/13/22 01:25 Urine Bilirubin Negative (Negative) 03/13/22 01:25 Urine Ictotest Not Reportable 03/13/22 01:25 Urine Urobilinogen 2.0 mg/dL (<2.0) 03/13/22 01:25 Ur Leukocyte Esterase Moderate (Negative) 03/13/22 01:25 Urine WBC (Auto) 151.0 /HPF (0.0-6.0) H 03/13/22 01:25 Urine RBC (Auto) > 182.0 /HPF (0.0-6.0) 03/13/22 01:25 U Epithel Cells (Auto) 1.0 /HPF (0-13.0) 03/13/22 01:25 Urine Bacteria (Auto) 2+ /HPF (Negative) 03/13/22 01:25 SARS-CoV-2 (PCR) Positive (Negative) A 03/13/22 11:18 Microbiology: Microbiology 03/13/22 00:22 Peripheral/Venous Blood Culture - Preliminary NO GROWTH AFTER 24 HOURS 03/13/22 00:11 Peripheral/Venous Blood Culture - Preliminary NO GROWTH AFTER 24 HOURS Calero/IV: Voiding Method Indwelling Catheter Active Medications - Current Medications Current Medications: Generic Name Dose Route Start Last Admin Trade Name Freq PRN Reason Stop Dose Admin Acetaminophen 650 mg 03/13/22 04:21 03/13/22 20:07 Acetaminophen 325 Mg Tab PO 650 mg Q4H PRN Administration Pain MILD(1-3)/Fever >100.5/MONTOYA Albuterol 2 puff 03/13/22 16:30 Albuterol 8.5 Gm Mdi Inhalation IH Q4HRT PRN Shortness Of Breath Albuterol/Ipratropium 1 ampul 03/13/22 08:00 03/14/22 08:00 Ipratropium/Albuterol Sulfate 3 Ml Ampul.Neb IH Not Given Q6HRT ROBERTO Atorvastatin Calcium 40 mg 03/13/22 10:00 03/14/22 10:05 Atorvastatin 40 Mg Tab PO 40 mg DAILY ROBERTO Administration Azithromycin 500 mg 03/13/22 16:00 03/13/22 16:36 Azithromycin 250 Mg Tab PO 500 mg Q24H ROBERTO Administration Protocol Dexamethasone 10 mg 03/13/22 14:00 03/14/22 02:21 Dexamethasone 4 Mg Tab PO 10 mg Q12H ROBERTO Administration Dextrose 50 ml 03/13/22 04:21 Dextrose 50% In Water (25gm) 50 Ml Syringe IV Q30MIN PRN Hypoglycemia Protocol Famotidine 20 mg 03/14/22 10:00 03/14/22 10:05 Famotidine 20 Mg Tab PO 20 mg BID ROBERTO Administration Heparin Sodium (Porcine) 5,000 unit 03/13/22 10:00 03/14/22 10:05 Heparin 5,000 Unit/1 Ml Vial SUB-Q 5,000 unit Q12HR ROBERTO Administration Ceftriaxone Sodium 2 gm in 100 mls @ 200 mls/hr 03/13/22 16:00 03/13/22 16:36 Rocephin/Ns 2 Gm/100 Ml IV 200 mls/hr Q24H ROBERTO Administration Remdesivir 200 mg/ Sodium 250 mls @ 500 mls/hr 03/14/22 12:00 03/14/22 12:56 Chloride IV 03/14/22 16:00 500 mls/hr ONCE@1200 ROBERTO Administration Remdesivir 100 mg/ Sodium 250 mls @ 500 mls/hr 03/15/22 14:00 Chloride IV 03/18/22 14:29 Q24HR@1400 [facility] Insulin Human Lispro 0 unit 03/13/22 07:30 03/14/22 11:56 Insulin Lispro 100 Unit/Ml SUB-Q Not Given ACHS [facility] Protocol Miscellaneous Medication 1,000 mg 03/14/22 10:00 03/14/22 11:07 Abiraterone Acetate [Abiraterone Acetate] PO 1,000 mg DAILY ROBERTO Administration Ondansetron HCl 4 mg 03/13/22 04:21 Ondansetron 4 Mg/2 Ml Inj IV Q8H PRN Nausea And Vomiting Polyethylene Glycol 17 gm 03/13/22 10:00 03/14/22 10:05 Polyethylene Glycol 3350 17 Gm Powder PO 17 gm QDAY ROBERTO Administration Sodium Chloride 10 ml 03/13/22 10:00 03/14/22 10:06 Sodium Chloride 0.9% 10 Ml Flush Syringe IV 10 ml BID ROBERTO Administration Sodium Chloride 10 ml 03/13/22 04:21 Sodium Chloride 0.9% 10 Ml Flush Syringe IV PRN PRN LINE FLUSH Sodium Chloride 50 ml 03/14/22 12:00 Sodium Chloride 0.9% 50 Ml Ivpb IV 03/18/22 14:01 Q24HR@1400 [facility] Nutrition/Malnutrition Assess - Dietary Evaluation Nutrition/Malnutrition Findings: Nutrition Notes Start: 03/13/22 20:00 Freq: Status: Active Protocol: Document 03/13/22 20:00 NANCY (Rec: 03/13/22 20:08 NANCY [id number]) Nutrition Notes Need for Assessment generated from: MD Order,Education Initial or Follow up Brief Note Current Diagnosis Diabetes,Sepsis,Hypertension, Respiratory Failure, Hyperlipidemia Other Pertinent Diagnosis UTI, Elevated Troponin, GERD, Lymphedema. Current Diet Cardiac/Consistent Carbohydrates Diet (since B ). 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 Weight Status Obese Subjective/Other Information RD consult for nutrition education assessment. No reports available on Pt's PO intake of measls at the time, will assess at F/U. Pt is on Nasal Cannula, O2 saturation @ 99%, according to Physical Assessment History notes. Pt still in critical condition , not a candidate for Nutrition Education at the time, will assess feasibility on F/U. Percent of energy/protein needs met: Prescribed Cardiac/Consistent Carbohydrates Diet provides for energy/protein needs (1, 977 Kcal/86 g) during LOS. Nutrition Intervention Follow-Up By: 03/20/22 Additional Comments Nutrition education will be provided at F/U, if feasible. Continue monitoring food tolerance, %PO intake of meals , and BM. <JAK DICK - Last Filed: 03/15/22 07:25> Assessment and Plan Assessment and plan: I saw and evaluated the patient. I agree with the findings and the plan of care as documented in the Nurse Practitioner's~note, with the following corrections and additions. Patient seen and examined, clinically improving, continue current management, pronning as tolerated, complete steroid therapy Hospitalist Physical - Constitutional Vitals: Temp Pulse Resp BP Pulse Ox 98.5 F 87 18 122/71 99 03/15/22 00:00 03/15/22 00:00 03/15/22 00:00 03/14/22 22:00 03/15/22 00:00 HEART Score - HEART Score Troponin: Troponin T 0.074 ng/mL (0.00-0.029) H 03/13/22 14:03 Results - Labs CBC & Chem 7: 03/14/22 05:23 03/14/22 15:32 Labs: Laboratory Last Values WBC 10.7 K/mm3 (4.5-11.0) 03/14/22 05:23 RBC 3.56 M/mm3 (3.65-5.03) L 03/14/22 05:23 Hgb 11.4 gm/dl (11.8-15.2) L 03/14/22 05:23 Hct 35.2 % (35.5-45.6) L 03/14/22 05:23 MCV 99 fl (84-94) H 03/14/22 05:23 MCH 32 pg (28-32) 03/14/22 05:23 MCHC 32 % (32-34) 03/14/22 05:23 RDW 15.1 % (13.2-15.2) 03/14/22 05:23 Plt Count 77 K/mm3 (140-440) L 03/14/22 05:23 Lymph % (Auto) 6.3 % (13.4-35.0) L 03/14/22 05:23 Letcher % (Auto) 4.3 % (0.0-7.3) 03/14/22 05:23 Eos % (Auto) 0.0 % (0.0-4.3) 03/14/22 05:23 Baso % (Auto) 0.2 % (0.0-1.8) 03/14/22 05:23 Lymph # (Auto) 0.7 K/mm3 (1.2-5.4) L 03/14/22 05:23 Letcher # (Auto) 0.5 K/mm3 (0.0-0.8) 03/14/22 05:23 Eos # (Auto) 0.0 K/mm3 (0.0-0.4) 03/14/22 05:23 Baso # (Auto) 0.0 K/mm3 (0.0-0.1) 03/14/22 05:23 Seg Neutrophils % 89.2 % (40.0-70.0) H 03/14/22 05:23 Seg Neutrophils # 9.6 K/mm3 (1.8-7.7) H 03/14/22 05:23 D-Dimer 895.26 ng/mlDDU (0-234) H 03/14/22 05:23 ABG pH 7.439 pH Units (7.350-7.450) 03/13/22 04:23 ABG pCO2 30.3 mm Hg 03/13/22 04:23 ABG pO2 157.1 mm Hg (80.0-90.0) H 03/13/22 04:23 ABG HCO3 20.0 mmol/L (20.0-26.0) 03/13/22 04:23 ABG O2 Saturation 99.0 % (95.0-99.0) 03/13/22 04:23 ABG O2 Content 15.3 (0.0-44) 03/13/22 04:23 ABG Base Excess -3.3 mmol/L (-2.0-3.0) L 03/13/22 04:23 ABG Hemoglobin 11.0 gm/dl (14.0-18.0) L 03/13/22 04:23 ABG Carboxyhemoglobin 0.6 % (0.0-5.0) 03/13/22 04:23 ABG Methemoglobin 0.8 % (0.0-1.5) 03/13/22 04:23 Oxyhemoglobin 97.6 % (95.0-99.0) 03/13/22 04:23 FiO2 30 % 03/13/22 04:23 Sodium 143 mmol/L (137-145) 03/14/22 15:32 Potassium 3.2 mmol/L (3.6-5.0) L 03/14/22 15:32 Chloride 107.6 mmol/L (98-107) H 03/14/22 15:32 Carbon Dioxide 23 mmol/L (22-30) 03/14/22 15:32 Anion Gap 16 mmol/L 03/14/22 15:32 BUN 14 mg/dL (9-20) 03/14/22 15:32 Creatinine 0.9 mg/dL (0.8-1.3) 03/14/22 15:32 Estimated GFR > 60 ml/min 03/14/22 15:32 BUN/Creatinine Ratio 16 % 03/14/22 15:32 Glucose 148 mg/dL (75-100) H 03/14/22 15:32 POC Glucose 177 mg/dL (70-105) H 03/14/22 21:05 Lactic Acid 2.60 mmol/L (0.7-2.0) H* 03/13/22 08:29 Calcium 8.4 mg/dL (8.4-10.2) 03/14/22 15:32 Ferritin 225.9 ng/mL (30.0-300.0) 03/14/22 05:23 Total Bilirubin 0.60 mg/dL (0.1-1.2) 03/14/22 15:32 AST 48 units/L (5-40) H 03/14/22 15:32 ALT 30 units/L (7-56) 03/14/22 15:32 Alkaline Phosphatase 48 units/L (35-129) 03/14/22 15:32 Lactate Dehydrogenase 378 units/L (91-180) H 03/14/22 05:23 Troponin T 0.074 ng/mL (0.00-0.029) H 03/13/22 14:03 C-Reactive Protein 15.10 mg/dL (0.00-1.30) H 03/14/22 05:23 Total Protein 5.6 g/dL (6.3-8.2) L 03/14/22 15:32 Albumin 3.2 g/dL (3.9-5) L 03/14/22 15:32 Albumin/Globulin Ratio 1.3 % 03/14/22 15:32 Triglycerides 111 mg/dL (2-149) 03/13/22 00:22 Cholesterol 151 mg/dL (50-199) 03/13/22 00:22 LDL Cholesterol Direct 89 mg/dL (50-130) 03/13/22 00:22 HDL Cholesterol 56 mg/dL (40-59) 03/13/22 00:22 Cholesterol/HDL Ratio 2.69 % 03/13/22 00:22 Procalcitonin 2.80 ng/mL (<0.15) 03/14/22 05:34 Urine Color Yellow (Yellow) 03/13/22 01:25 Urine Turbidity Slightly cloudy (Clear) 03/13/22 01:25 Urine pH 6.0 (5.0-7.0) 03/13/22 01:25 Ur Specific [place] 1.030 (1.003-1.030) 03/13/22 01:25 Urine Protein 100 mg/dl mg/dL (Negative) 03/13/22 01:25 Urine Glucose (UA) Negative mg/dL (Negative) 03/13/22 01:25 Urine Ketones Trace mg/dL (Negative) 03/13/22 01:25 Urine Blood Large (Negative) A 03/13/22 01:25 Urine Nitrite Negative (Negative) 03/13/22 01:25 Ur Reducing Substances Not Reportable 03/13/22 01:25 Urine Bilirubin Negative (Negative) 03/13/22 01:25 Urine Ictotest Not Reportable 03/13/22 01:25 Urine Urobilinogen 2.0 mg/dL (<2.0) 03/13/22 01:25 Ur Leukocyte Esterase Moderate (Negative) 03/13/22 01:25 Urine WBC (Auto) 151.0 /HPF (0.0-6.0) H 03/13/22 01:25 Urine RBC (Auto) > 182.0 /HPF (0.0-6.0) 03/13/22 01:25 U Epithel Cells (Auto) 1.0 /HPF (0-13.0) 03/13/22 01:25 Urine Bacteria (Auto) 2+ /HPF (Negative) 03/13/22 01:25 SARS-CoV-2 (PCR) Positive (Negative) A 03/13/22 11:18 Microbiology: Microbiology 03/13/22 00:11 Peripheral/Venous Blood Culture - Preliminary NO GROWTH AFTER 48 HOURS 03/13/22 00:22 Peripheral/Venous Blood Culture - Preliminary NO GROWTH AFTER 48 HOURS Calero/IV: Voiding Method Indwelling Catheter Active Medications - Current Medications Current Medications: Generic Name Dose Route Start Last Admin Trade Name Freq PRN Reason Stop Dose Admin Acetaminophen 650 mg 03/13/22 04:21 03/13/22 20:07 Acetaminophen 325 Mg Tab PO 650 mg Q4H PRN Administration Pain MILD(1-3)/Fever >100.5/MONTOYA Albuterol 2 puff 03/13/22 16:30 Albuterol 8.5 Gm Mdi Inhalation IH Q4HRT PRN Shortness Of Breath Atorvastatin Calcium 40 mg 03/13/22 10:00 03/14/22 10:05 Atorvastatin 40 Mg Tab PO 40 mg DAILY ROBERTO Administration Azithromycin 500 mg 03/13/22 16:00 03/14/22 15:14 Azithromycin 250 Mg Tab PO 500 mg Q24H ROBERTO Administration Protocol Dexamethasone 10 mg 03/13/22 14:00 03/15/22 01:25 Dexamethasone 4 Mg Tab PO 10 mg Q12H ROBERTO Administration Dextrose 50 ml 03/13/22 04:21 Dextrose 50% In Water (25gm) 50 Ml Syringe IV Q30MIN PRN Hypoglycemia Protocol Famotidine 20 mg 03/14/22 10:00 03/14/22 21:45 Famotidine 20 Mg Tab PO 20 mg BID ROBERTO Administration Heparin Sodium (Porcine) 5,000 unit 03/13/22 10:00 03/14/22 21:45 Heparin 5,000 Unit/1 Ml Vial SUB-Q 5,000 unit Q12HR ROBERTO Administration Ceftriaxone Sodium 2 gm in 100 mls @ 200 mls/hr 03/13/22 16:00 03/14/22 17:01 Rocephin/Ns 2 Gm/100 Ml IV 200 mls/hr Q24H ROBERTO Administration Remdesivir 100 mg/ Sodium 250 mls @ 500 mls/hr 03/15/22 14:00 Chloride IV 07/09/22 14:29 Q24HR@1400 ROBERTO Insulin Human Lispro 0 unit 03/13/22 07:30 03/14/22 21:46 Insulin Lispro 100 Unit/Ml SUB-Q 2 unit ACHS ROBERTO Administration Protocol Miscellaneous Medication 1,000 mg 03/14/22 10:00 03/14/22 11:07 Abiraterone Acetate [Abiraterone Acetate] PO 1,000 mg DAILY ROBERTO Administration Ondansetron HCl 4 mg 03/13/22 04:21 Ondansetron 4 Mg/2 Ml Inj IV Q8H PRN Nausea And Vomiting Polyethylene Glycol 17 gm 03/13/22 10:00 03/14/22 10:05 Polyethylene Glycol 3350 17 Gm Powder PO 17 gm QDAY ROBERTO Administration Sodium Chloride 10 ml 03/13/22 10:00 03/14/22 21:47 Sodium Chloride 0.9% 10 Ml Flush Syringe IV 10 ml BID ROBERTO Administration Sodium Chloride 10 ml 03/13/22 04:21 Sodium Chloride 0.9% 10 Ml Flush Syringe IV PRN PRN LINE FLUSH Sodium Chloride 50 ml 03/14/22 12:00 Sodium Chloride 0.9% 50 Ml Ivpb IV 03/18/22 14:01 Q24HR@1400 [facility] Nutrition/Malnutrition Assess - Dietary Evaluation Nutrition/Malnutrition Findings: Nutrition Notes Start: 03/13/22 20:00 Freq: Status: Active Protocol: Document 03/13/22 20:00 NANCY (Rec: 03/13/22 20:08 NANCY [id number]) Nutrition Notes Need for Assessment generated from: MD Order,Education Initial or Follow up Brief Note Current Diagnosis Diabetes,Sepsis,Hypertension, Respiratory Failure, Hyperlipidemia Other Pertinent Diagnosis UTI, Elevated Troponin, GERD, Lymphedema. Current Diet Cardiac/Consistent Carbohydrates Diet (since B ). 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 Weight Status Obese Subjective/Other Information RD consult for nutrition education assessment. No reports available on Pt's PO intake of measls at the time, will assess at F/U. Pt is on Nasal Cannula, O2 saturation @ 99%, according to Physical Assessment History notes. Pt still in critical condition , not a candidate for Nutrition Education at the time, will assess feasibility on F/U. Percent of energy/protein needs met: Prescribed Cardiac/Consistent Carbohydrates Diet provides for energy/protein needs (1, 977 Kcal/86 g) during LOS. Nutrition Intervention Follow-Up By: 03/20/22 Additional Comments Nutrition education will be provided at F/U, if feasible. Continue monitoring food tolerance, %PO intake of meals , and BM.
[2022-03-14] MEDS: AZITHROMYCIN 250 MG TAB PO SCH (15:14)
[2022-03-14 16:50] LABS: Alanine Aminotransferase 30 units/L (7-56); Albumin 3.2 g/dL (3.9-5); BUN/Creatinine Ratio 16; Blood Urea Nitrogen 14 mg/dL (9-20); Calcium 8.4 mg/dL (8.4-10.2); Hemolysis Index 3
[2022-03-14] MEDS: cefTRIAXone/NS 2 GM/100 ML 2 GM/100 ML BAG IV SCH (17:01)
[2022-03-15] MEDS: DEXAMETHASONE 4 MG TAB PO SCH ×2 (01:25→15:04)
[2022-03-15] MEDS: INSULIN LISPRO 100 UNIT/ML SUB-Q SCH ×4 (08:51→23:03)
[2022-03-15] MEDS: ABIRATERONE ACETATE 250 MG PO SCH (09:08)
[2022-03-15] MEDS: FAMOTIDINE 20 MG TAB PO SCH ×2 (09:08→23:02)
[2022-03-15] MEDS: HEPARIN 5,000 UNIT/1 ML VIAL SUB-Q SCH ×2 (09:08→23:02)
[2022-03-15] MEDS: POLYETHYLENE GLYCOL 3350 17 GM POWDER PO SCH (09:08)
--- NOTE | 2022-03-15 09:22 | Progress Note ---
Assessment and Plan Assessment and plan: This is a 81-year-old male with known past medical history of of prostate CA w mets to bone (currently undergoing treatment), HTN, DM2, and lymphedema admitted for acute hypoxic respiratory failure secondary to COVID 19 pneumonia Acute hypoxic respiratory failure 2/2 COVID 19 Pneumonia -Presented with difficultly breathing required continuous Bipap -CXR reveals worsening bilateral pulmonary opacities -COVID PCR positive -Currently stable on 3L NC -Empiric IV Abx- Rocephin and Azithro -[id number] and PO decadron initiated -ID and CCM on consult appreciate, recommendations -Continue O2 supplementation wean as tolerated -Continue SPO2 monitoring for SPO2 goal above 92% COVID 19 Infection Viral Pneumonia/COVID PNA Urinary Tract Infection -Presented with high fever TMAMX 104.3 -covid 19 rt pcr positive -bcx/scx pending -ID Consulted, appreciate recommendations -Empiric IV Abx- Rocephin and Azithro -[id number] and PO decadron initiated -trend fever/wbc curve -PCCM also on consultation Hypotension-resolved Troponin Elevation H/o Hyperlipidemia and Hypertension -Presented with hypotension, resolved post IV hydration -likely due to infectious process -BP stable this am -Hold home antihypertensive for now -Cardiology also consulted, appreciated recommendations -Recent echo noted, EF greater than 70%, see report for detail -Continue blood pressure monitor per protocol -Maintain MAP above 65 -Continue AC- Hep SubQ for VTE proph Thrombocytopenia (POA) -Presented with low plt -H&H stable, no s/s of any active bleeding -Given patient CA history and current COVID + will continue VTE proph for now -close monitoring of platelet count, trend CBC Type 2 Diabetes with Hyperglycemia -home regimen: Unknown -current regimen: Moderate SSI -blood glucose goal 140-180 while inpatient -continue to monitor Prostate CA w/ Mets to Bone -currently undergoing treatment at [facility] -Last treatment was in Jan, 2022. Next treatment is in April, -Follow up outpatient with own ONC for treatment Hypokalemia. Morbid Obesity - BMI 39.0 - Counseled patient on the importance of weight loss, incorporating exercise, and dietary changes (lean meats, fresh fruits and vegetables, and water intake). Patient expresses understanding. GI/DVT Prophylaxis -PPI- Pepcid -Heparin SubQ -SCDs to bilateral lower extremities while in bed Hospital Course To Date: 03/13: COVID +, initiated on azithro/rocephin for both empiric cap coverage and UTI tx. Decadron iv intiated. ID consultation for covid infection/viral pneumonia tx. case d/w PCCM Dr. Sanchez. 03/14: Remains stable on 3L NC, VSS. Continue current empiric IV Abx, and PO decadronX 10days. ID on consulted, Remdesevir initiated for 5days. Thrombocytopenia since admit, H&H stable. No s/s of any active bleeding. Given patient CA history and current COVID + will continue VTE proph for now, close monitoring of platelet count. Patient is stable for transfer to the floor. PT/OT ordered. 03/15: Patient reportedly confused last night and pulled out urinary catheter. Patient has a history of metastatic prostate cancer and previously with coud catheter. Urology consulted. Continue remdesivir and Decadron per ID recommendations. Replete potassium History Interval history: No new issues Hospitalist Physical - Constitutional Vitals: Temp Pulse Resp BP Pulse Ox 98.5 F 113 H 19 144/58 98 03/15/22 00:00 03/15/22 05:10 03/15/22 05:10 03/15/22 05:10 03/15/22 08:33 General appearance: Present: no acute distress, well-nourished, obese - EENT Eyes: Present: PERRL, EOM intact ENT: hearing intact, clear oral mucosa, dentition normal - Neck Neck: Present: supple, normal ROM - Respiratory Respiratory effort: normal Respiratory: bilateral: CTA - Cardiovascular Rhythm: regular Heart Sounds: Present: S1 & S2. Absent: gallop, rub - Extremities Extremities: no ischemia, No edema, Full ROM - Abdominal General gastrointestinal: soft, non-tender, non-distended, normal bowel sounds - Integumentary Integumentary: Present: clear, warm, dry - Neurologic Neurologic: CNII-XII intact, moves all extremities HEART Score - HEART Score Troponin: Troponin T 0.074 ng/mL (0.00-0.029) H 03/13/22 14:03 Results - Labs CBC & Chem 7: 03/14/22 05:23 03/14/22 15:32 Labs: Laboratory Last Values WBC 10.7 K/mm3 (4.5-11.0) 03/14/22 05:23 RBC 3.56 M/mm3 (3.65-5.03) L 03/14/22 05:23 Hgb 11.4 gm/dl (11.8-15.2) L 03/14/22 05:23 Hct 35.2 % (35.5-45.6) L 03/14/22 05:23 MCV 99 fl (84-94) H 03/14/22 05:23 MCH 32 pg (28-32) 03/14/22 05:23 MCHC 32 % (32-34) 03/14/22 05:23 RDW 15.1 % (13.2-15.2) 03/14/22 05:23 Plt Count 77 K/mm3 (140-440) L 03/14/22 05:23 Lymph % (Auto) 6.3 % (13.4-35.0) L 03/14/22 05:23 [place] % (Auto) 4.3 % (0.0-7.3) 03/14/22 05:23 Eos % (Auto) 0.0 % (0.0-4.3) 03/14/22 05:23 Baso % (Auto) 0.2 % (0.0-1.8) 03/14/22 05:23 Lymph # (Auto) 0.7 K/mm3 (1.2-5.4) L 03/14/22 05:23 [place] # (Auto) 0.5 K/mm3 (0.0-0.8) 03/14/22 05:23 Eos # (Auto) 0.0 K/mm3 (0.0-0.4) 03/14/22 05:23 Baso # (Auto) 0.0 K/mm3 (0.0-0.1) 03/14/22 05:23 Seg Neutrophils % 89.2 % (40.0-70.0) H 03/14/22 05:23 Seg Neutrophils # 9.6 K/mm3 (1.8-7.7) H 03/14/22 05:23 D-Dimer 895.26 ng/mlDDU (0-234) H 03/14/22 05:23 ABG pH 7.439 pH Units (7.350-7.450) 03/13/22 04:23 ABG pCO2 30.3 mm Hg 03/13/22 04:23 ABG pO2 157.1 mm Hg (80.0-90.0) H 03/13/22 04:23 ABG HCO3 20.0 mmol/L (20.0-26.0) 03/13/22 04:23 ABG O2 Saturation 99.0 % (95.0-99.0) 03/13/22 04: ABG O2 Content 15.3 (0.0-44) 03/13/22 04:23 ABG Base Excess -3.3 mmol/L (-2.0-3.0) L 03/13/22 04: ABG Hemoglobin 11.0 gm/dl (14.0-18.0) L 03/13/22 04:23 ABG Carboxyhemoglobin 0.6 % (0.0-5.0) 03/13/22 04: ABG Methemoglobin 0.8 % (0.0-1.5) 03/13/22 04: Oxyhemoglobin 97.6 % (95.0-99.0) 03/13/22 04:23 FiO2 30 % 03/13/22 04:23 Sodium 143 mmol/L (137-145) 03/14/22 15:32 Potassium 3.2 mmol/L (3.6-5.0) L 03/14/22 15:32 Chloride 107.6 mmol/L (98-107) H 03/14/22 15:32 Carbon Dioxide 23 mmol/L (22-30) 03/14/22 15:32 Anion Gap 16 mmol/L 03/14/22 15:32 BUN 14 mg/dL (9-20) 03/14/22 15:32 Creatinine 0.9 mg/dL (0.8-1.3) 03/14/22 15:32 Estimated GFR > 60 ml/min 03/14/22 15:32 BUN/Creatinine Ratio 16 % 03/14/22 15:32 Glucose 148 mg/dL (75-100) H 03/14/22 15:32 POC Glucose 125 mg/dL (70-105) H 03/15/22 08:05 Lactic Acid 2.60 mmol/L (0.7-2.0) H* 03/13/22 08:29 Calcium 8.4 mg/dL (8.4-10.2) 03/14/22 15:32 Ferritin 225.9 ng/mL (30.0-300.0) 03/14/22 05:23 Total Bilirubin 0.60 mg/dL (0.1-1.2) 03/14/22 15:32 AST 48 units/L (5-40) H 03/14/22 15:32 ALT 30 units/L (7-56) 03/14/22 15:32 Alkaline Phosphatase 48 units/L (35-129) 03/14/22 15:32 Lactate Dehydrogenase 378 units/L (91-180) H 03/14/22 05:23 Troponin T 0.074 ng/mL (0.00-0.029) H 03/13/22 14:03 C-Reactive Protein 15.10 mg/dL (0.00-1.30) H 03/14/22 05:23 Total Protein 5.6 g/dL (6.3-8.2) L 03/14/22 15:32 Albumin 3.2 g/dL (3.9-5) L 03/14/22 15:32 Albumin/Globulin Ratio 1.3 % 03/14/22 15:32 Triglycerides 111 mg/dL (2-149) 03/13/22 00:22 Cholesterol 151 mg/dL (50-199) 03/13/22 00:22 LDL Cholesterol Direct 89 mg/dL (50-130) 03/13/22 00:22 HDL Cholesterol 56 mg/dL (40-59) 03/13/22 00:22 Cholesterol/HDL Ratio 2.69 % 03/13/22 00:22 Procalcitonin 2.80 ng/mL (<0.15) 03/14/22 05:34 Urine Color Yellow (Yellow) 03/13/22 01:25 Urine Turbidity Slightly cloudy (Clear) 03/13/22 01:25 Urine pH 6.0 (5.0-7.0) 03/13/22 01:25 Ur Specific [place] 1.030 (1.003-1.030) 03/13/22 01:25 Urine Protein 100 mg/dl mg/dL (Negative) 03/13/22 01:25 Urine Glucose (UA) Negative mg/dL (Negative) 03/13/22 01:25 Urine Ketones Trace mg/dL (Negative) 03/13/22 01:25 Urine Blood Large (Negative) A 03/13/22 01:25 Urine Nitrite Negative (Negative) 03/13/22 01:25 Ur Reducing Substances Not Reportable 03/13/22 01:25 Urine Bilirubin Negative (Negative) 03/13/22 01:25 Urine Ictotest Not Reportable 03/13/22 01:25 Urine Urobilinogen 2.0 mg/dL (<2.0) 03/13/22 01:25 Ur Leukocyte Esterase Moderate (Negative) 03/13/22 01:25 Urine WBC (Auto) 151.0 /HPF (0.0-6.0) H 03/13/22 01:25 Urine RBC (Auto) > 182.0 /HPF (0.0-6.0) 03/13/22 01:25 U Epithel Cells (Auto) 1.0 /HPF (0-13.0) 03/13/22 01:25 Urine Bacteria (Auto) 2+ /HPF (Negative) 03/13/22 01:25 SARS-CoV-2 (PCR) Positive (Negative) A 03/13/22 11:18 Microbiology: Microbiology 03/13/22 00:11 Peripheral/Venous Blood Culture - Preliminary NO GROWTH AFTER 48 HOURS 03/13/22 00:22 Peripheral/Venous Blood Culture - Preliminary NO GROWTH AFTER 48 HOURS Calero/IV: Voiding Method Indwelling Catheter Active Medications - Current Medications Current Medications: Generic Name Dose Route Start Last Admin Trade Name Freq PRN Reason Stop Dose Admin Acetaminophen 650 mg 03/13/22 04:21 03/13/22 20:07 Acetaminophen 325 Mg Tab PO 650 mg Q4H PRN Administration Pain MILD(1-3)/Fever >100.5/MONTOYA Albuterol 2 puff 03/13/22 16:30 Albuterol 8.5 Gm Mdi Inhalation IH Q4HRT PRN Shortness Of Breath Atorvastatin Calcium 40 mg 03/13/22 10:00 03/14/22 10:05 Atorvastatin 40 Mg Tab PO 40 mg DAILY ROBERTO Administration Azithromycin 500 mg 03/13/22 16:00 03/14/22 15:14 Azithromycin 250 Mg Tab PO 500 mg Q24H ROBERTO Administration Protocol Dexamethasone 10 mg 03/13/22 14:00 03/15/22 01:25 Dexamethasone 4 Mg Tab PO 10 mg Q12H ROBERTO Administration Dextrose 50 ml 03/13/22 04:21 Dextrose 50% In Water (25gm) 50 Ml Syringe IV Q30MIN PRN Hypoglycemia Protocol Famotidine 20 mg 03/14/22 10:00 03/14/22 21:45 Famotidine 20 Mg Tab PO 20 mg BID ROBERTO Administration Heparin Sodium (Porcine) 5,000 unit 03/13/22 10:00 03/14/22 21:45 Heparin 5,000 Unit/1 Ml Vial SUB-Q 5,000 unit Q12HR ROBERTO Administration Ceftriaxone Sodium 2 gm in 100 mls @ 200 mls/hr 03/13/22 16:00 03/14/22 17:01 Rocephin/Ns 2 Gm/100 Ml IV 200 mls/hr Q24H ROBERTO Administration Remdesivir 100 mg/ Sodium 250 mls @ 500 mls/hr 03/15/22 14:00 Chloride IV 03/18/22 14:29 Q24HR@1400 [facility] Insulin Human Lispro 0 unit 03/13/22 07:30 03/14/22 21:46 Insulin Lispro 100 Unit/Ml SUB-Q 2 unit ACHS ROBERTO Administration Protocol Miscellaneous Medication 1,000 mg 03/14/22 10:00 03/14/22 11:07 Abiraterone Acetate [Abiraterone Acetate] PO 1,000 mg DAILY ROBERTO Administration Ondansetron HCl 4 mg 03/13/22 04:21 Ondansetron 4 Mg/2 Ml Inj IV Q8H PRN Nausea And Vomiting Polyethylene Glycol 17 gm 03/13/22 10:00 03/14/22 10:05 Polyethylene Glycol 3350 17 Gm Powder PO 17 gm QDAY ROBERTO Administration Sodium Chloride 10 ml 03/13/22 10:00 03/14/22 21:47 Sodium Chloride 0.9% 10 Ml Flush Syringe IV 10 ml BID ROBERTO Administration Sodium Chloride 10 ml 03/13/22 04:21 Sodium Chloride 0.9% 10 Ml Flush Syringe IV PRN PRN LINE FLUSH Sodium Chloride 50 ml 03/14/22 12:00 Sodium Chloride 0.9% 50 Ml Ivpb IV 03/18/22 14:01 Q24HR@1400 [facility] Nutrition/Malnutrition Assess - Dietary Evaluation Nutrition/Malnutrition Findings: Nutrition Notes Start: 03/13/22 20:00 Freq: Status: Active Protocol: Document 03/13/22 20:00 NANCY (Rec: 03/13/22 20:08 NANCY [id number]) Nutrition Notes Need for Assessment generated from: MD Order,Education Initial or Follow up Brief Note Current Diagnosis Diabetes,Sepsis,Hypertension, Respiratory Failure, Hyperlipidemia Other Pertinent Diagnosis UTI, Elevated Troponin, GERD, Lymphedema. Current Diet Cardiac/Consistent Carbohydrates Diet (since B ). Height 5 ft 11 in Weight 127 kg [place] Body Weight (kg) 78.18 BMI 39.0 Intake Prior to Admission Good Weight change and time frame Pt denies having loss body weight [employer]. Weight Status Obese Subjective/Other Information RD consult for nutrition education assessment. No reports available on Pt's PO intake of measls at the time, will assess at F/U. Pt is on Nasal Cannula, O2 saturation @ 99%, according to Physical Assessment History notes. Pt still in critical condition , not a candidate for Nutrition Education at the time, will assess feasibility on F/U. Percent of energy/protein needs met: Prescribed Cardiac/Consistent Carbohydrates Diet provides for energy/protein needs (1, 977 Kcal/86 g) during LOS. Nutrition Intervention Follow-Up By: 03/20/22 Additional Comments Nutrition education will be provided at F/U, if feasible. Continue monitoring food tolerance, %PO intake of meals , and BM.
[2022-03-15 09:56] LABS: Hematocrit 32.9 % (35.5-45.6); Hemoglobin 10.8 gm/dl (11.8-15.2); Mean Corpuscular HGB Conc 33 % (32-34); Mean Corpuscular Volume 98 fl (84-94); Red Blood Count 3.35 M/mm3 (3.65-5.03); Red Cell Distribution Width 14.8 % (13.2-15.2)
[2022-03-15 09:57] LABS: Platelet Count 99 K/mm3 (140-440)
[2022-03-15] MEDS ORDERED: POTASSIUM CHLORIDE ER 20 MEQ TAB PO SCH (10:00)
[2022-03-15 10:21] LABS: Alanine Aminotransferase 32 units/L (7-56); Albumin 3.4 g/dL (3.9-5); BUN/Creatinine Ratio 24; Blood Urea Nitrogen 19 mg/dL (9-20); Calcium 8.6 mg/dL (8.4-10.2); Hemolysis Index 2
--- NOTE | 2022-03-15 10:42 | Consultation ---
History of Present Illness - Reason for Consult Consult date: 03/15/22 - History of Present Illness URETHRAL TRAUMA COVID POSITIVE This is a 81-year-old male with known past medical history of of prostate CA w mets to bone (currently undergoing treatment), HTN, DM2, and lymphedema admitted for acute hypoxic respiratory failure secondary to COVID 19 pneumonia. Pt present to hospital with moon---unclear why--discussed with pt. I did a robotic prostatectomy 2016---- tommy 10. pt received salvage radiation therapy. due to insurance issues, I have not seen pt since --- no urologic surgical issues to address. Pt is receiving chemotherapy at [facility]. pt in no distress Pt states moon was painful & pulled out abd soft a/p urethal trauma --- leave moon out for now Past History Past Medical History: anemia, cancer (prostate CA w mets to bone), diabetes, other (PUD) Past Surgical History: No surgical history. denies: CABG, PTCA Social history: , lives with family. denies: smoking, alcohol abuse Family history: no significant family history Medications and Allergies Allergies Allergy/AdvReac Type Severity Reaction Status Date / Time No Known Allergies Allergy Unverified 11/08/15 10:54 Home Medications Medication Instructions Recorded Confirmed Last Taken Type ASA/Calcium Carb/Mag/Aluminum 81 mg PO DAILY 06/24/19 06/24/19 06/23/19 History [Raymond Plus 500 mg Caplet] Abiraterone Acetate 250 mg PO DAILY 06/24/19 03/13/22 06/23/19 History AtorvaSTATin [Lipitor] 40 mg PO DAILY 06/24/19 03/13/22 06/23/19 History Degarelix (Nf) [Firmagon (Nf)] 240 mg SQ QMONTH 06/24/19 06/24/19 Unknown History Ondansetron [Zofran ODT TAB] 8 mg PO Q8HR PRN 06/24/19 03/13/22 06/23/19 History Prednisone [predniSONE (Shy) ER 5 mg PO QDAY 06/24/19 03/13/22 06/23/19 History TAB] Pantoprazole [Protonix TAB] 40 mg PO BID #60 tablet 06/28/19 03/13/22 Unknown Rx polyethylene glycoL 3350 [Miralax 17 gm PO QDAY #7 packet 06/28/19 Unknown Rx 3350] Active Meds: Active Medications Acetaminophen (Acetaminophen 325 Mg Tab) 650 mg PO Q4H PRN PRN Reason: Pain MILD(1-3)/Fever >100.5/MONTOYA Last Admin: 03/13/22 20:07 Dose: 650 mg Albuterol (Albuterol 8.5 Gm Mdi Inhalation) 2 puff IH Q4HRT PRN PRN Reason: Shortness Of Breath Atorvastatin Calcium (Atorvastatin 40 Mg Tab) 40 mg PO DAILY [facility] Last Admin: 03/15/22 09:08 Dose: 40 mg Azithromycin (Azithromycin 250 Mg Tab) 500 mg PO Q24H [facility]; Protocol Last Admin: 03/14/22 15:14 Dose: 500 mg Dexamethasone (Dexamethasone 4 Mg Tab) 10 mg PO Q12H [facility] Last Admin: 03/15/22 01:25 Dose: 10 mg Dextrose (Dextrose 50% In Water (25gm) 50 Ml Syringe) 50 ml IV Q30MIN PRN; Protocol PRN Reason: Hypoglycemia Famotidine (Famotidine 20 Mg Tab) 20 mg PO BID [facility] Last Admin: 03/15/22 09:08 Dose: 20 mg Heparin Sodium (Porcine) (Heparin 5,000 Unit/1 Ml Vial) 5,000 unit SUB-Q Q12HR [facility] Last Admin: 03/15/22 09:08 Dose: 5,000 unit Ceftriaxone Sodium (Rocephin/Ns 2 Gm/100 Ml) 2 gm in 100 mls @ 200 mls/hr IV Q24H [facility] Last Admin: 03/14/22 17:01 Dose: 200 mls/hr Remdesivir 100 mg/ Sodium (Chloride) 250 mls @ 500 mls/hr IV Q24HR@1400 [facility] Stop: 03/18/22 14:29 Insulin Human Lispro (Insulin Lispro 100 Unit/Ml) 0 unit SUB-Q ACHS [facility]; Protocol Last Admin: 03/15/22 08:51 Dose: Not Given Miscellaneous Medication (Abiraterone Acetate [Abiraterone Acetate]) 1,000 mg PO DAILY [facility] Last Admin: 03/15/22 09:08 Dose: 1,000 mg Ondansetron HCl (Ondansetron 4 Mg/2 Ml Inj) 4 mg IV Q8H PRN PRN Reason: Nausea And Vomiting Polyethylene Glycol (Polyethylene Glycol 3350 17 Gm Powder) 17 gm PO QDAY [facility] Last Admin: 03/15/22 09:08 Dose: 17 gm Potassium Chloride (Potassium Chloride Er 20 Meq Tab) 40 meq PO ONCE@1000 [facility] Stop: 03/15/22 15:00 Sodium Chloride (Sodium Chloride 0.9% 10 Ml Flush Syringe) 10 ml IV BID [facility] Last Admin: 03/15/22 09:08 Dose: 10 ml Sodium Chloride (Sodium Chloride 0.9% 10 Ml Flush Syringe) 10 ml IV PRN PRN PRN Reason: LINE FLUSH Sodium Chloride (Sodium Chloride 0.9% 50 Ml Ivpb) 50 ml IV Q24HR@1400 [facility] Stop: 03/18/22 14:01 Exam - Constitutional Vitals: Temp Pulse Resp BP Pulse Ox 98.5 F 113 H 19 144/58 98 03/15/22 00:00 03/15/22 05:10 03/15/22 05:10 03/15/22 05:10 03/15/22 08:33 Results - Labs CBC & Chem 7: 03/15/22 09:52 03/15/22 05:00 Labs: Abnormal lab results 03/14/22 03/14/22 03/14/22 Range/Units 15:32 16:57 21:05 WBC (4.5-11.0) K/mm3 RBC (3.65-5.03) M/mm3 Hgb (11.8-15.2) gm/dl Hct (35.5-45.6) % MCV (84-94) fl Plt Count (140-440) K/mm3 Potassium 3.2 L (3.6-5.0) mmol/L Chloride 107.6 H (98-107) mmol/L Glucose 148 H (75-100) mg/dL POC Glucose 137 H 177 H (70-105) mg/dL AST 48 H (5-40) units/L Total Protein 5.6 L (6.3-8.2) g/dL Albumin 3.2 L (3.9-5) g/dL 03/15/22 03/15/22 03/15/22 Range/Units 05:00 08:05 09:52 WBC 13.5 H (4.5-11.0) K/mm3 RBC 3.35 L (3.65-5.03) M/mm3 Hgb 10.8 L (11.8-15.2) gm/dl Hct 32.9 L (35.5-45.6) % MCV 98 H (84-94) fl Plt Count 99 L (140-440) K/mm3 Potassium 3.3 L (3.6-5.0) mmol/L Chloride 108.6 H (98-107) mmol/L Glucose 146 H (75-100) mg/dL POC Glucose 125 H (70-105) mg/dL AST 60 H (5-40) units/L Total Protein 6.1 L (6.3-8.2) g/dL Albumin 3.4 L (3.9-5) g/dL
--- NOTE | 2022-03-15 11:36 | Progress Note ---
Assessment and Plan Cultures: SARS CoV2 PCR: Positive 03/13/2022 blood culture: No growth A/P: 81-year-old male with diabetes, hypertension, morbid obesity, prostate cancer with bony metastasis on treatment admitted with: #Sepsis, likely secondary to COVID-19 #Acute hypoxic respiratory failure: Initially required BiPAP, now on nasal cannula. #Mild transaminitis: Probably secondary to COVID-19 #Elevated troponin #Acute thrombocytopenia: Could be from viral illness #UTI: UA showed pyuria. Urine culture in process. #History of prostate cancer with bony metastasis: On treatment. Hematuria with Calero on admission with urethral trauma, Calero was removed. Seen by urology. Recs: -continue IV/PO Dexamethasone x 10 days -continue IV remdesivir x 5 days -if hypoxia worsens to requiring HFNC >30 L/min, CRP >7.5, candidate for Actemra (depending on availability) -prophylactic anticoagulation based on d-dimer per hospital protocol -Continue 5 days of ceftriaxone, azithromycin -trend d-dimer, CRP every 2-3 days Mauricio Doyle MD, FACP, [facility] O: [phone] F: [phone] C: [phone] Subjective Date of service: 03/15/22 Principal diagnosis: Weakness, Dyspnea Interval history: No fever. Remains stable on nasal cannula. Objective - Exam Narrative Exam: Physical Exam (reviewed in chart to minimize risk of transmission) Constitutional: deferred Head, Ears, Nose: deferred Eyes: deferred Neck: deferred Oral: deferred Cardiovascular: deferred Respiratory: deferred GI: deferred Musculoskeletal: deferred Skin: deferred Hem/Lymphatic: deferred Psych: deferred Neurological: deferred - Constitutional Vitals: Vital Signs Temp Pulse Resp BP Pulse Ox 98.5 F 113 H 19 144/58 98 03/15/22 00:00 03/15/22 05:10 03/15/22 05:10 03/15/22 05:10 03/15/22 08:33 Temperature -Last 24 Hours Temperature 98.5 F Temperature 98.5 F Temperature 98.4 F - Labs CBC & Chem 7: 03/15/22 09:52 03/15/22 05:00 Labs: Abnormal lab results 03/14/22 03/14/2203/14/22 Range/Units 15:32 16:57 21:05 WBC (4.5-11.0) K/mm3 RBC (3.65-5.03) M/mm3 Hgb (11.8-15.2) gm/dl Hct (35.5-45.6) % MCV (84-94) fl Plt Count (140-440) K/mm3 Potassium 3.2 L (3.6-5.0) mmol/L Chloride 107.6 H (98-107) mmol/L Glucose 148 H (75-100) mg/dL POC Glucose 137 H 177 H (70-105) mg/dL AST 48 H (5-40) units/L Total Protein 5.6 L (6.3-8.2) g/dL Albumin 3.2 L (3.9-5) g/dL 03/15/22 03/15/22 03/15/22 Range/Units 05:00 08:05 09:52 WBC 13.5 H (4.5-11.0) K/mm3 RBC 3.35 L (3.65-5.03) M/mm3 Hgb 10.8 L (11.8-15.2) gm/dl Hct 32.9 L (35.5-45.6) % MCV 98 H (84-94) fl Plt Count 99 L (140-440) K/mm3 Potassium 3.3 L (3.6-5.0) mmol/L Chloride 108.6 H (98-107) mmol/L Glucose 146 H (75-100) mg/dL POC Glucose 125 H (70-105) mg/dL AST 60 H (5-40) units/L Total Protein 6.1 L (6.3-8.2) g/dL Albumin 3.4 L (3.9-5) g/dL
[2022-03-15] MEDS: SODIUM CHLORIDE 0.9% 50 ML IVPB IV SCH (15:04)
[2022-03-15] MEDS: REMDESIVIR 100 MG in SODIUM CHLORIDE 0.9% 250ML 250 ML IV SCH (15:05)
--- NOTE | 2022-03-15 16:53 | Progress Note ---
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 Continue steroids and Remdesivir. O2 requirement has remained stable. Prone if able. Guarded prognosis. 03/14/22: Continue steroids at current dosing. Follow up ID recs in regards to Remdesivir, not a candidate for Actemra. Stable for transfer to floor. 1. Dexamethasone 10 BID given obesity 2. Sending CRP 3. ID consult secondary to COVID to see if patient requires remdesivir 4. Prone if able 5. Supplemental oxygen 6. Changed zosyn to Rocephin and Azithro 7. Pain control 8. Guarded prognosis. Subjective Date of service: 03/15/22 Principal diagnosis: Weakness, Dyspnea Interval history: Successful transfer to floor. Started on Remdesivir Objective - Constitutional Vitals: Vital Signs - 12hr 03/15/22 03/15/22 05:10 08:33 Pulse Rate 113 H Respiratory 19 Rate Blood Pressure 144/58 O2 Sat by Pulse 99 98 Oximetry - Labs CBC & Chem 7: 03/15/22 09:52 03/15/22 05:00 Labs: Abnormal lab results 03/14/22 03/14/22 03/15/22 Range/Units 16:57 21:05 05:00 WBC (4.5-11.0) K/mm3 RBC (3.65-5.03) M/mm3 Hgb (11.8-15.2) gm/dl Hct (35.5-45.6) % MCV (84-94) fl Plt Count (140-440) K/mm3 Potassium 3.3 L (3.6-5.0) mmol/L Chloride 108.6 H (98-107) mmol/L Glucose 146 H (75-100) mg/dL POC Glucose 137 H 177 H (70-105) mg/dL AST 60 H (5-40) units/L Total Protein 6.1 L (6.3-8.2) g/dL Albumin 3.4 L (3.9-5) g/dL 03/15/22 03/15/22 03/15/22 Range/Units 08:05 09:52 12:13 WBC 13.5 H (4.5-11.0) K/mm3 RBC 3.35 L (3.65-5.03) M/mm3 Hgb 10.8 L (11.8-15.2) gm/dl Hct 32.9 L (35.5-45.6) % MCV 98 H (84-94) fl Plt Count 99 L (140-440) K/mm3 Potassium (3.6-5.0) mmol/L Chloride (98-107) mmol/L Glucose (75-100) mg/dL POC Glucose 125 H 132 H (70-105) mg/dL AST (5-40) units/L Total Protein (6.3-8.2) g/dL Albumin (3.9-5) g/dL Medications & Allergies - Medications Allergies/Adverse Reactions: Allergies No Known Allergies Allergy (Unverified 11/08/15 10:54) Home Medications: Home Medications Medication Instructions Recorded Confirmed Last Taken Type ASA/Calcium Carb/Mag/Aluminum 81 mg PO DAILY 06/24/19 06/24/19 06/23/19 History [Raymond Plus 500 mg Caplet] Abiraterone Acetate 250 mg PO DAILY 06/24/19 03/13/22 06/23/19 History AtorvaSTATin [Lipitor] 40 mg PO DAILY 06/24/19 03/13/22 06/23/19 History Degarelix (Nf) [Firmagon (Nf)] 240 mg SQ QMONTH 06/24/19 06/24/19 Unknown History Ondansetron [Zofran ODT TAB] 8 mg PO Q8HR PRN 06/24/19 03/13/22 06/23/19 History Prednisone [predniSONE (Shy) ER 5 mg PO QDAY 06/24/19 03/13/22 06/23/19 History TAB] Pantoprazole [Protonix TAB] 40 mg PO BID #60 tablet 06/28/19 03/13/22 Unknown Rx polyethylene glycoL 3350 [Miralax 17 gm PO QDAY #7 packet 06/28/19 Unknown Rx 3350] Active Medications: Generic Name Dose Route Start Last Admin Trade Name Freq PRN Reason Stop Dose Admin Acetaminophen 650 mg 03/13/22 04:21 03/13/22 20:07 Acetaminophen 325 Mg Tab PO 650 mg Q4H PRN Administration Pain MILD(1-3)/Fever >100.5/MONTOYA Albuterol 2 puff 03/13/22 16:30 Albuterol 8.5 Gm Mdi Inhalation IH Q4HRT PRN Shortness Of Breath Atorvastatin Calcium 40 mg 03/13/22 10:00 03/15/22 09:08 Atorvastatin 40 Mg Tab PO 40 mg DAILY ROBERTO Administration Azithromycin 500 mg 03/13/22 16:00 03/14/22 15:14 Azithromycin 250 Mg Tab PO 03/17/22 16:01 500 mg Q24H ROBERTO Administration Protocol Dexamethasone 10 mg 03/13/22 14:00 03/15/22 15:04 Dexamethasone 4 Mg Tab PO 10 mg Q12H ROBERTO Administration Dextrose 50 ml 03/13/22 04:21 Dextrose 50% In Water (25gm) 50 Ml Syringe IV Q30MIN PRN Hypoglycemia Protocol Famotidine 20 mg 03/14/22 10:00 03/15/22 09:08 Famotidine 20 Mg Tab PO 20 mg BID ROBERTO Administration Heparin Sodium (Porcine) 5,000 unit 03/13/22 10:00 03/15/22 09:08 Heparin 5,000 Unit/1 Ml Vial SUB-Q 5,000 unit Q12HR ROBERTO Administration Ceftriaxone Sodium 2 gm in 100 mls @ 200 mls/hr 03/13/22 16:00 03/14/22 17:01 Rocephin/Ns 2 Gm/100 Ml IV 03/17/22 16:29 200 mls/hr Q24H ROBERTO Administration Remdesivir 100 mg/ Sodium 250 mls @ 500 mls/hr 03/15/22 14:00 03/15/22 15:05 Chloride IV 03/18/22 14:29 500 mls/hr Q24HR@1400 ROBERTO Administration Insulin Human Lispro 0 unit 03/13/22 07:30 03/15/22 15:04 Insulin Lispro 100 Unit/Ml SUB-Q Not Given ACHS ROBERTO Protocol Miscellaneous Medication 1,000 mg 03/14/22 10:00 03/15/22 09:08 Abiraterone Acetate [Abiraterone Acetate] PO 1,000 mg DAILY ROBERTO Administration Ondansetron HCl 4 mg 03/13/22 04:21 Ondansetron 4 Mg/2 Ml Inj IV Q8H PRN Nausea And Vomiting Polyethylene Glycol 17 gm 03/13/22 10:00 03/15/22 09:08 Polyethylene Glycol 3350 17 Gm Powder PO 17 gm QDAY ROBERTO Administration Sodium Chloride 10 ml 03/13/22 10:00 03/15/22 09:08 Sodium Chloride 0.9% 10 Ml Flush Syringe IV 10 ml BID ROBERTO Administration Sodium Chloride 10 ml 03/13/22 04:21 Sodium Chloride 0.9% 10 Ml Flush Syringe IV PRN PRN LINE FLUSH Sodium Chloride 50 ml 03/14/22 12:00 03/15/22 15:04 Sodium Chloride 0.9% 50 Ml Ivpb IV 03/18/22 14:01 50 ml Q24HR@1400 ROBERTO Administration HEART Score - HEART Score Troponin: Troponin T 0.074 ng/mL (0.00-0.029) H 03/13/22 14:03
[2022-03-15] MEDS: cefTRIAXone/NS 2 GM/100 ML 2 GM/100 ML BAG IV SCH (17:51)
[2022-03-15] MEDS: AZITHROMYCIN 250 MG TAB PO SCH (17:51)
[2022-03-16] MEDS: DEXAMETHASONE 4 MG TAB PO SCH ×2 (02:34→14:47)
--- NOTE | 2022-03-16 09:04 | Progress Note ---
Assessment and Plan Assessment and plan: This is a 81-year-old male with known past medical history of of prostate CA w mets to bone (currently undergoing treatment), HTN, DM2, and lymphedema admitted for acute hypoxic respiratory failure secondary to COVID 19 pneumonia Acute hypoxic respiratory failure 2/2 COVID 19 Pneumonia -Presented with difficultly breathing required continuous Bipap -CXR reveals worsening bilateral pulmonary opacities -COVID PCR positive -Currently stable on 3L NC -Empiric IV Abx- Rocephin and Azithro -[id number] and PO decadron initiated -ID and CCM on consult appreciate, recommendations -Continue O2 supplementation wean as tolerated -Continue SPO2 monitoring for SPO2 goal above 92% COVID 19 Infection Viral Pneumonia/COVID PNA Urinary Tract Infection -Presented with high fever TMAMX 104.3 -covid 19 rt pcr positive -bcx/scx pending -ID Consulted, appreciate recommendations -Empiric IV Abx- Rocephin and Azithro -[id number] and PO decadron initiated -trend fever/wbc curve -PCCM also on consultation Hypotension-resolved Troponin Elevation H/o Hyperlipidemia and Hypertension -Presented with hypotension, resolved post IV hydration -likely due to infectious process -BP stable this am -Hold home antihypertensive for now -Cardiology also consulted, appreciated recommendations -Recent echo noted, EF greater than 70%, see report for detail -Continue blood pressure monitor per protocol -Maintain MAP above 65 -Continue AC- Hep SubQ for VTE proph Thrombocytopenia (POA) -Presented with low plt -H&H stable, no s/s of any active bleeding -Given patient CA history and current COVID + will continue VTE proph for now -close monitoring of platelet count, trend CBC Type 2 Diabetes with Hyperglycemia -home regimen: Unknown -current regimen: Moderate SSI -blood glucose goal 140-180 while inpatient -continue to monitor Prostate CA w/ Mets to Bone -currently undergoing treatment at [facility] -Last treatment was in Jan, 2022. Next treatment is in April, -Follow up outpatient with own ONC for treatment Hematuria hypokalemia. Morbid Obesity - BMI 39.0 - Counseled patient on the importance of weight loss, incorporating exercise, and dietary changes (lean meats, fresh fruits and vegetables, and water intake). Patient expresses understanding. GI/DVT Prophylaxis -PPI- Pepcid -Heparin SubQ -SCDs to bilateral lower extremities while in bed Hospital Course To Date: 03/13: COVID +, initiated on azithro/rocephin for both empiric cap coverage and UTI tx. Decadron iv intiated. ID consultation for covid infection/viral pneumonia tx. case d/w PCCM Dr. Sanchez. 03/14: Remains stable on 3L NC, VSS. Continue current empiric IV Abx, and PO decadronX 10days. ID on consulted, Remdesevir initiated for 5days. Thrombocytopenia since admit, H&H stable. No s/s of any active bleeding. Given patient CA history and current COVID + will continue VTE proph for now, close monitoring of platelet count. Patient is stable for transfer to the floor. PT/OT ordered. 03/15: Patient reportedly confused last night and pulled out urinary catheter. Patient has a history of metastatic prostate cancer and previously with coud catheter. Urology consulted. Continue remdesivir and Decadron per ID recommendations. Replete potassium 03/16: Patient back to baseline mental status. Alert and oriented x3. Patient still complains of dyspnea with minimal exertion. Patient currently with 2 L O2 satting at 98%. We will perform walk test. Continue IV dexamethasone and remdesivir. Continue 5 days of ceftriaxone and azithromycin given the elevated procalcitonin level. Patient with hematuria from Calero trauma. Leave Calero out for now. Continue condom catheter. History Interval history: No new issues Hospitalist Physical - Constitutional Vitals: Temp Pulse Resp BP Pulse Ox 98.0 F 74 20 146/70 99 03/15/22 23:15 03/16/22 04:00 03/15/22 23:15 03/15/22 23:15 03/16/22 04:30 General appearance: Present: no acute distress, well-nourished, obese - EENT Eyes: Present: PERRL, EOM intact ENT: hearing intact, clear oral mucosa, dentition normal - Neck Neck: Present: supple, normal ROM - Respiratory Respiratory effort: normal Respiratory: bilateral: CTA - Cardiovascular Rhythm: regular Heart Sounds: Present: S1 & S2. Absent: gallop, rub - Extremities Extremities: no ischemia, No edema, Full ROM - Abdominal General gastrointestinal: soft, non-tender, non-distended, normal bowel sounds - Integumentary Integumentary: Present: clear, warm, dry - Neurologic Neurologic: CNII-XII intact, moves all extremities HEART Score - HEART Score Troponin: Troponin T 0.074 ng/mL (0.00-0.029) H 03/13/22 14:03 Results - Labs CBC & Chem 7: 03/15/22 09:52 03/15/22 05:00 Labs: Laboratory Last Values WBC 13.5 K/mm3 (4.5-11.0) H 03/15/22 09:52 RBC 3.35 M/mm3 (3.65-5.03) L 03/15/22 09:52 Hgb 10.8 gm/dl (11.8-15.2) L 03/15/22 09:52 Hct 32.9 % (35.5-45.6) L 03/15/22 09:52 MCV 98 fl (84-94) H 03/15/22 09:52 MCH 32 pg (28-32) 03/15/22 09:52 MCHC 33 % (32-34) 03/15/22 09:52 RDW 14.8 % (13.2-15.2) 03/15/22 09:52 Plt Count 99 K/mm3 (140-440) L 03/15/22 09:52 Lymph % (Auto) 6.3 % (13.4-35.0) L 03/14/22 05:23 [place] % (Auto) 4.3 % (0.0-7.3) 03/14/22 05:23 Eos % (Auto) 0.0 % (0.0-4.3) 03/14/22 05:23 Baso % (Auto) 0.2 % (0.0-1.8) 03/14/22 05:23 Lymph # (Auto) 0.7 K/mm3 (1.2-5.4) L 03/14/22 05:23 [place] # (Auto) 0.5 K/mm3 (0.0-0.8) 03/14/22 05:23 Eos # (Auto) 0.0 K/mm3 (0.0-0.4) 03/14/22 05:23 Baso # (Auto) 0.0 K/mm3 (0.0-0.1) 03/14/22 05:23 Seg Neutrophils % 89.2 % (40.0-70.0) H 03/14/22 05:23 Seg Neutrophils # 9.6 K/mm3 (1.8-7.7) H 03/14/22 05:23 D-Dimer 895.26 ng/mlDDU (0-234) H 03/14/22 05:23 ABG pH 7.439 pH Units (7.350-7.450) 03/13/22 04:23 ABG pCO2 30.3 mm Hg 03/13/22 04:23 ABG pO2 157.1 mm Hg (80.0-90.0) H 03/13/22 04:23 ABG HCO3 20.0 mmol/L (20.0-26.0) 03/13/22 04: ABG O2 Saturation 99.0 % (95.0-99.0) 03/13/22 04: ABG O2 Content 15.3 (0.0-44) 03/13/22 04:23 ABG Base Excess -3.3 mmol/L (-2.0-3.0) L 03/13/22 04:23 ABG Hemoglobin 11.0 gm/dl (14.0-18.0) L 03/13/22 04:23 ABG Carboxyhemoglobin 0.6 % (0.0-5.0) 03/13/22 04:23 ABG Methemoglobin 0.8 % (0.0-1.5) 03/13/22 04:23 Oxyhemoglobin 97.6 % (95.0-99.0) 03/13/22 04: FiO2 30 % 03/13/22 04:23 Sodium 145 mmol/L (137-145) 03/15/22 05:00 Potassium 3.3 mmol/L (3.6-5.0) L 03/15/22 05:00 Chloride 108.6 mmol/L (98-107) H 03/15/22 05:00 Carbon Dioxide 22 mmol/L (22-30) 03/15/22 05:00 Anion Gap 18 mmol/L 03/15/22 05:00 BUN 19 mg/dL (9-20) 03/15/22 05:00 Creatinine 0.8 mg/dL (0.8-1.3) 03/15/22 05:00 Estimated GFR > 60 ml/min 03/15/22 05:00 BUN/Creatinine Ratio 24 % 03/15/22 05:00 Glucose 146 mg/dL (75-100) H 03/15/22 05:00 POC Glucose 144 mg/dL (70-105) H 03/16/22 08:38 Lactic Acid 1.40 mmol/L (0.7-2.0) 03/15/22 04:00 Calcium 8.6 mg/dL (8.4-10.2) 03/15/22 05:00 Ferritin 225.9 ng/mL (30.0-300.0) 03/14/22 05:23 Total Bilirubin 0.50 mg/dL (0.1-1.2) 03/15/22 05:00 AST 60 units/L (5-40) H 03/15/22 05:00 ALT 32 units/L (7-56) 03/15/22 05:00 Alkaline Phosphatase 46 units/L (35-129) 03/15/22 05:00 Lactate Dehydrogenase 378 units/L (91-180) H 03/14/22 05:23 Troponin T 0.074 ng/mL (0.00-0.029) H 03/13/22 14:03 C-Reactive Protein 15.10 mg/dL (0.00-1.30) H 03/14/22 05:23 Total Protein 6.1 g/dL (6.3-8.2) L 03/15/22 05:00 Albumin 3.4 g/dL (3.9-5) L 03/15/22 05:00 Albumin/Globulin Ratio 1.3 % 03/15/22 05:00 Triglycerides 111 mg/dL (2-149) 03/13/22 00:22 Cholesterol 151 mg/dL (50-199) 03/13/22 00:22 LDL Cholesterol Direct 89 mg/dL (50-130) 03/13/22 00:22 HDL Cholesterol 56 mg/dL (40-59) 03/13/22 00:22 Cholesterol/HDL Ratio 2.69 % 03/13/22 00:22 Procalcitonin 2.80 ng/mL (<0.15) 03/14/22 05:34 Urine Color Yellow (Yellow) 03/13/22 01:25 Urine Turbidity Slightly cloudy (Clear) 03/13/22 01:25 Urine pH 6.0 (5.0-7.0) 03/13/22 01:25 Ur Specific [place] 1.030 (1.003-1.030) 03/13/22 01:25 Urine Protein 100 mg/dl mg/dL (Negative) 03/13/22 01:25 Urine Glucose (UA) Negative mg/dL (Negative) 03/13/22 01:25 Urine Ketones Trace mg/dL (Negative) 03/13/22 01:25 Urine Blood Large (Negative) A 03/13/22 01:25 Urine Nitrite Negative (Negative) 03/13/22 01:25 Ur Reducing Substances Not Reportable 03/13/22 01:25 Urine Bilirubin Negative (Negative) 03/13/22 01:25 Urine Ictotest Not Reportable 03/13/22 01:25 Urine Urobilinogen 2.0 mg/dL (<2.0) 03/13/22 01:25 Ur Leukocyte Esterase Moderate (Negative) 03/13/22 01:25 Urine WBC (Auto) 151.0 /HPF (0.0-6.0) H 03/13/22 01:25 Urine RBC (Auto) > 182.0 /HPF (0.0-6.0) 03/13/22 01:25 U Epithel Cells (Auto) 1.0 /HPF (0-13.0) 03/13/22 01:25 Urine Bacteria (Auto) 2+ /HPF (Negative) 03/13/22 01:25 SARS-CoV-2 (PCR) Positive (Negative) A 03/13/22 11:18 Microbiology: Microbiology 03/13/22 00:11 Peripheral/Venous Blood Culture - Preliminary NO GROWTH AFTER 72 HOURS 03/13/22 00:22 Peripheral/Venous Blood Culture - Preliminary NO GROWTH AFTER 72 HOURS [place]/IV: Voiding Method Urinal Active Medications - Current Medications Current Medications: Generic Name Dose Route Start Last Admin Trade Name Freq PRN Reason Stop Dose Admin Acetaminophen 650 mg 03/13/22 04:21 03/13/22 20:07 Acetaminophen 325 Mg Tab PO 650 mg Q4H PRN Administration Pain MILD(1-3)/Fever >100.5/MONTOYA Albuterol 2 puff 03/13/22 16:30 Albuterol 8.5 Gm Mdi Inhalation IH Q4HRT PRN Shortness Of Breath Atorvastatin Calcium 40 mg 03/13/22 10:00 03/15/22 09:08 Atorvastatin 40 Mg Tab PO 40 mg DAILY ROBERTO Administration Azithromycin 500 mg 03/13/22 16:00 03/15/22 17:51 Azithromycin 250 Mg Tab PO 03/17/22 16:01 500 mg Q24H ROBERTO Administration Protocol Dexamethasone 10 mg 03/13/22 14:00 03/16/22 02:34 Dexamethasone 4 Mg Tab PO 10 mg Q12H ROBERTO Administration Dextrose 50 ml 03/13/22 04:21 Dextrose 50% In Water (25gm) 50 Ml Syringe IV Q30MIN PRN Hypoglycemia Protocol Famotidine 20 mg 03/14/22 10:00 03/15/22 23:02 Famotidine 20 Mg Tab PO 20 mg BID ROBERTO Administration Heparin Sodium (Porcine) 5,000 unit 03/13/22 10:00 03/15/22 23:02 Heparin 5,000 Unit/1 Ml Vial SUB-Q 5,000 unit Q12HR ROBERTO Administration Ceftriaxone Sodium 2 gm in 100 mls @ 200 mls/hr 03/13/22 16:00 03/15/22 19:53 Rocephin/Ns 2 Gm/100 Ml IV 03/17/22 16:29 Infused Q24H ROBERTO Infusion Remdesivir 100 mg/ Sodium 250 mls @ 500 mls/hr 03/15/22 14:00 03/15/22 17:51 Chloride IV 03/18/22 14:29 Infused Q24HR@1400 ROBERTO Infusion Insulin Human Lispro 0 unit 03/13/22 07:30 03/15/22 23:03 Insulin Lispro 100 Unit/Ml SUB-Q 2 unit ACHS ROBERTO Administration Protocol Miscellaneous Medication 1,000 mg 03/14/22 10:00 03/15/22 09:08 Abiraterone Acetate [Abiraterone Acetate] PO 1,000 mg DAILY ROBERTO Administration Ondansetron HCl 4 mg 03/13/22 04:21 Ondansetron 4 Mg/2 Ml Inj IV Q8H PRN Nausea And Vomiting Polyethylene Glycol 17 gm 03/13/22 10:00 03/15/22 09:08 Polyethylene Glycol 3350 17 Gm Powder PO 17 gm QDAY ROBERTO Administration Sodium Chloride 10 ml 03/13/22 10:00 03/15/22 23:03 Sodium Chloride 0.9% 10 Ml Flush Syringe IV 10 ml BID ROBERTO Administration Sodium Chloride 10 ml 03/13/22 04:21 Sodium Chloride 0.9% 10 Ml Flush Syringe IV PRN PRN LINE FLUSH Sodium Chloride 50 ml 03/14/22 12:00 03/15/22 15:04 Sodium Chloride 0.9% 50 Ml Ivpb IV 03/18/22 14:01 50 ml Q24HR@1400 ROBERTO Administration Nutrition/Malnutrition Assess - Dietary Evaluation Nutrition/Malnutrition Findings: Nutrition Notes Start: 03/13/22 20:00 Freq: Status: Active Protocol: Document 03/13/22 20:00 NANCY (Rec: 03/13/22 20:08 NANCY [id number]) Nutrition Notes Need for Assessment generated from: MD Order,Education Initial or Follow up Brief Note Current Diagnosis Diabetes,Sepsis,Hypertension, Respiratory Failure, Hyperlipidemia Other Pertinent Diagnosis UTI, Elevated Troponin, GERD, Lymphedema. Current Diet Cardiac/Consistent Carbohydrates Diet (since B ). Height 5 ft 11 in Weight 127 kg [place] Body Weight (kg) 78.18 BMI 39.0 Intake Prior to Admission Good Weight change and time frame Pt denies having loss body weight [employer]. Weight Status Obese Subjective/Other Information RD consult for nutrition education assessment. No reports available on Pt's PO intake of measls at the time, will assess at F/U. Pt is on Nasal Cannula, O2 saturation @ 99%, according to Physical Assessment History notes. Pt still in critical condition , not a candidate for Nutrition Education at the time, will assess feasibility on F/U. Percent of energy/protein needs met: Prescribed Cardiac/Consistent Carbohydrates Diet provides for energy/protein needs (1, 977 Kcal/86 g) during LOS. Nutrition Intervention Follow-Up By: 03/20/22 Additional Comments Nutrition education will be provided at F/U, if feasible. Continue monitoring food tolerance, %PO intake of meals , and BM.
[2022-03-16] MEDS: INSULIN LISPRO 100 UNIT/ML SUB-Q SCH ×4 (09:13→22:41)
[2022-03-16] MEDS: FAMOTIDINE 20 MG TAB PO SCH ×2 (10:15→22:32)
[2022-03-16] MEDS: POLYETHYLENE GLYCOL 3350 17 GM POWDER PO SCH (10:15)
[2022-03-16] MEDS: ABIRATERONE ACETATE 250 MG PO SCH (10:17)
[2022-03-16] MEDS: HEPARIN 5,000 UNIT/1 ML VIAL SUB-Q SCH ×2 (10:41→22:32)
[2022-03-16 11:21] LABS: Alanine Aminotransferase 48 units/L (7-56); Albumin 3.7 g/dL (3.9-5); BUN/Creatinine Ratio 20; Blood Urea Nitrogen 22 mg/dL (9-20); Calcium 8.5 mg/dL (8.4-10.2); Hemolysis Index 0
--- NOTE | 2022-03-16 12:04 | Progress Note ---
Assessment and Plan Cultures: SARS CoV2 PCR: Positive 03/13/2022 blood culture: No growth A/P: 81-year-old male with diabetes, hypertension, morbid obesity, prostate cancer with bony metastasis on treatment admitted with: #Sepsis, likely secondary to COVID-19 #Acute hypoxic respiratory failure: Initially required BiPAP, then nasal cannula and now weaned to room air. #Mild transaminitis: Probably secondary to COVID-19 #Elevated troponin #Acute thrombocytopenia: Could be from viral illness #UTI: UA showed pyuria. Urine culture in process. #History of prostate cancer with bony metastasis: On treatment. Hematuria with Calero on admission with urethral trauma, Calero was removed. Seen by urology. Recs: -continue IV/PO Dexamethasone x 10 days -continue IV remdesivir x 5 days -prophylactic anticoagulation based on d-dimer per hospital protocol -Continue 5 days of ceftriaxone, azithromycin -since patient has been weaned to room air, does not need to remain inpatient to complete 5 days of remdesivir. Discharge planning Mauricio Doyle MD, FACP, [facility] O: [phone] F: [phone] C: [phone] Subjective Date of service: 03/16/22 Principal diagnosis: Weakness, Dyspnea Interval history: No fever. Weaned to room air. Objective - Exam Narrative Exam: Physical Exam (reviewed in chart to minimize risk of transmission) Constitutional: deferred Head, Ears, Nose: deferred Eyes: deferred Neck: deferred Oral: deferred Cardiovascular: deferred Respiratory: deferred GI: deferred Musculoskeletal: deferred Skin: deferred Hem/Lymphatic: deferred Psych: deferred Neurological: deferred - Constitutional Vitals: Vital Signs Temp Pulse Resp BP Pulse Ox 98.0 F 74 20 146/70 97 03/15/22 23:15 03/16/22 04:00 03/15/22 23:15 03/15/22 23:15 03/16/22 10:00 Temperature -Last 24 Hours Temperature 98.0 F - Labs CBC & Chem 7: 03/15/22 09:52 03/16/22 10:32 Labs: Abnormal lab results 03/15/22 03/15/22 03/15/22 Range/Units 12:13 16:42 23:02 D-Dimer (0-234) ng/mlDDU Potassium (3.6-5.0) mmol/L BUN (9-20) mg/dL Glucose (75-100) mg/dL POC Glucose 132 H 134 H 171 H (70-105) mg/dL AST (5-40) units/L Total Protein (6.3-8.2) g/dL Albumin (3.9-5) g/dL 03/16/22 03/16/22 03/16/22 Range/Units 08:38 10:32 10:32 D-Dimer 679.25 H (0-234) ng/mlDDU Potassium 3.5 L (3.6-5.0) mmol/L BUN 22 H (9-20) mg/dL Glucose 209 H (75-100) mg/dL POC Glucose 144 H (70-105) mg/dL AST 85 H (5-40) units/L Total Protein 5.7 L (6.3-8.2) g/dL Albumin 3.7 L (3.9-5) g/dL 03/16/22 Range/Units 11:19 D-Dimer (0-234) ng/mlDDU Potassium (3.6-5.0) mmol/L BUN (9-20) mg/dL Glucose (75-100) mg/dL POC Glucose 187 H (70-105) mg/dL AST (5-40) units/L Total Protein (6.3-8.2) g/dL Albumin (3.9-5) g/dL
[2022-03-16] MEDS: REMDESIVIR 100 MG in SODIUM CHLORIDE 0.9% 250ML 250 ML IV SCH (14:00)
[2022-03-16] MEDS: SODIUM CHLORIDE 0.9% 50 ML IVPB IV SCH (14:32)
[2022-03-16] MEDS: AZITHROMYCIN 250 MG TAB PO SCH (15:30)
[2022-03-16] MEDS: cefTRIAXone/NS 2 GM/100 ML 2 GM/100 ML BAG IV SCH (15:31)
--- NOTE | 2022-03-16 20:48 | Progress Note ---
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 Pulm status appears stable. Follow up again tomorrow if patient still admitted or not being discharged and if remains on room air, will sign off. 03/15/22: Per ID if hypoxemia worsens and CRP increases would be a candidate for Actemra. Continue steroids and Remdesivir. O2 requirement has remained stable. Prone if able. Guarded prognosis. 03/14/22: Continue steroids at current dosing. Follow up ID recs in regards to Remdesivir, not a candidate for Actemra. Stable for transfer to floor. 1. Dexamethasone 10 BID given obesity 2. Sending CRP 3. ID consult secondary to COVID to see if patient requires remdesivir 4. Prone if able 5. Supplemental oxygen 6. Changed zosyn to Rocephin and Azithro 7. Pain control 8. Guarded prognosis. Subjective Date of service: 03/16/22 Principal diagnosis: Weakness, Dyspnea Interval history: Patient weaned to room air. Stable. Objective - Constitutional Vitals: Vital Signs - 12hr 03/16/22 03/16/22 03/16/22 10:00 12:28 16:56 Temperature 97.8 F Pulse Rate 80 Respiratory 20 Rate Blood Pressure 151/66 O2 Sat by Pulse 97 99 97 Oximetry - Labs CBC & Chem 7: 03/15/22 09:52 03/16/22 10:32 Labs: Abnormal lab results 03/15/22 03/16/22 03/16/22 Range/Units 23:02 08:38 10:32 D-Dimer (0-234) ng/mlDDU Potassium 3.5 L (3.6-5.0) mmol/L BUN 22 H (9-20) mg/dL Glucose 209 H (75-100) mg/dL POC Glucose 171 H 144 H (70-105) mg/dL AST 85 H (5-40) units/L C-Reactive Protein 5.60 H (0.00-1.30) mg/dL Total Protein 5.7 L (6.3-8.2) g/dL Albumin 3.7 L (3.9-5) g/dL 03/16/22 03/16/22 03/16/22 Range/Units 10:32 11:19 17:43 D-Dimer 679.25 H (0-234) ng/mlDDU Potassium (3.6-5.0) mmol/L BUN (9-20) mg/dL Glucose (75-100) mg/dL POC Glucose 187 H 175 H (70-105) mg/dL AST (5-40) units/L C-Reactive Protein (0.00-1.30) mg/dL Total Protein (6.3-8.2) g/dL Albumin (3.9-5) g/dL Medications & Allergies - Medications Allergies/Adverse Reactions: Allergies No Known Allergies Allergy (Verified 03/16/22 11:11) Home Medications: Home Medications Medication Instructions Recorded Confirmed Last Taken Type Abiraterone Acetate 250 mg PO 4XD 06/24/19 03/16/22 03/13/22 History AtorvaSTATin [Lipitor] 40 mg PO DAILY 06/24/19 03/16/22 03/13/22 History Prednisone [predniSONE (Shy) ER 5 mg PO QDAY 06/24/19 03/16/22 03/13/22 History TAB] Degarelix Acetate [Firmagon] 80 mg SQ QMONTH 03/16/22 03/16/22 1 Month Ago History ~02/14/22 Metoprolol [Lopressor] 25 mg PO BID 03/16/22 03/16/22 03/13/22 History Pantoprazole [Protonix TAB] 20 mg QDAY 03/16/22 03/16/22 03/13/22 History Pioglitazone HCl [Actos] 30 mg PO QDAY 03/16/22 03/16/22 03/13/22 History Active Medications: Generic Name Dose Route Start Last Admin Trade Name Freq PRN Reason Stop Dose Admin Acetaminophen 650 mg 03/13/22 04:21 03/13/22 20:07 Acetaminophen 325 Mg Tab PO 650 mg Q4H PRN Administration Pain MILD(1-3)/Fever >100.5/MONTOYA Albuterol 2 puff 03/13/22 16:30 Albuterol 8.5 Gm Mdi Inhalation IH Q4HRT PRN Shortness Of Breath Atorvastatin Calcium 40 mg 03/13/22 10:00 03/16/22 10:15 Atorvastatin 40 Mg Tab PO 40 mg DAILY ROBERTO Administration Azithromycin 500 mg 03/13/22 16:00 03/16/22 15:30 Azithromycin 250 Mg Tab PO 03/17/22 16:01 500 mg Q24H ROBERTO Administration Protocol Dexamethasone 10 mg 03/13/22 14:00 03/16/22 14:47 Dexamethasone 4 Mg Tab PO 10 mg Q12H ROBERTO Administration Dextrose 50 ml 03/13/22 04:21 Dextrose 50% In Water (25gm) 50 Ml Syringe IV Q30MIN PRN Hypoglycemia Protocol Famotidine 20 mg 03/14/22 10:00 03/16/22 10:15 Famotidine 20 Mg Tab PO 20 mg BID ROBERTO Administration Heparin Sodium (Porcine) 5,000 unit 03/13/22 10:00 03/16/22 10:41 Heparin 5,000 Unit/1 Ml Vial SUB-Q 5,000 unit Q12HR ROBERTO Administration Ceftriaxone Sodium 2 gm in 100 mls @ 200 mls/hr 03/13/22 16:00 03/16/22 15:31 Rocephin/Ns 2 Gm/100 Ml IV 03/17/22 16:29 200 mls/hr Q24H ROBERTO Administration Remdesivir 100 mg/ Sodium 250 mls @ 500 mls/hr 03/15/22 14:00 03/16/22 14:00 Chloride IV 03/18/22 14:29 500 mls/hr Q24HR@1400 ROBERTO Administration Insulin Human Lispro 0 unit 03/13/22 07:30 03/16/22 18:11 Insulin Lispro 100 Unit/Ml SUB-Q 2 unit ACHS ROBERTO Administration Protocol Miscellaneous Medication 1,000 mg 03/14/22 10:00 03/16/22 10:17 Abiraterone Acetate [Abiraterone Acetate] PO 1,000 mg DAILY ROBERTO Administration Ondansetron HCl 4 mg 03/13/22 04:21 Ondansetron 4 Mg/2 Ml Inj IV Q8H PRN Nausea And Vomiting Polyethylene Glycol 17 gm 03/13/22 10:00 03/16/22 10:15 Polyethylene Glycol 3350 17 Gm Powder PO 17 gm QDAY ROBERTO Administration Sodium Chloride 10 ml 03/13/22 10:00 03/16/22 14:00 Sodium Chloride 0.9% 10 Ml Flush Syringe IV 10 ml BID ROBERTO Administration Sodium Chloride 10 ml 03/13/22 04:21 Sodium Chloride 0.9% 10 Ml Flush Syringe IV PRN PRN LINE FLUSH Sodium Chloride 50 ml 03/14/22 12:00 03/16/22 14:32 Sodium Chloride 0.9% 50 Ml Ivpb IV 03/18/22 14:01 50 ml Q24HR@1400 ROBERTO Administration HEART Score - HEART Score Troponin: Troponin T 0.074 ng/mL (0.00-0.029) H 03/13/22 14:03
[2022-03-17 01:54] VITALS: BP 155/80
[2022-03-17] MEDS: DEXAMETHASONE 4 MG TAB PO SCH (02:15)
[2022-03-17 07:45] LABS: Alanine Aminotransferase 64 units/L (7-56); Albumin 3.5 g/dL (3.9-5); BUN/Creatinine Ratio 22; Blood Urea Nitrogen 20 mg/dL (9-20); Calcium 8.7 mg/dL (8.4-10.2); Hemolysis Index 8
--- NOTE | 2022-03-17 08:26 | Progress Note ---
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 Will sign off. suggest 10 days of steroids and follow up ID recs. 03/16/22: Weaned to room air. Pulm status appears stable. Follow up again tomorrow if patient still admitted or not being discharged and if remains on room air, will sign off. 03/15/22: Per ID if hypoxemia worsens and CRP increases would be a candidate for Actemra. Continue steroids and Remdesivir. O2 requirement has remained stable. Prone if able. Guarded prognosis. 03/14/22: Continue steroids at current dosing. Follow up ID recs in regards to Remdesivir, not a candidate for Actemra. Stable for transfer to floor. 1. Dexamethasone 10 BID given obesity 2. Sending CRP 3. ID consult secondary to COVID to see if patient requires remdesivir 4. Prone if able 5. Supplemental oxygen 6. Changed zosyn to Rocephin and Azithro 7. Pain control 8. Guarded prognosis. Subjective Date of service: 03/17/22 Principal diagnosis: Weakness, Dyspnea Interval history: Remains on room air. Objective - Constitutional Vitals: Vital Signs - 12hr 03/16/22 03/16/22 03/17/22 22:00 22:24 00:00 Temperature 98.1 F Pulse Rate 74 84 Respiratory 17 Rate Blood Pressure 168/82 155/80 O2 Sat by Pulse 96 100 Oximetry 03/17/22 04:00 Temperature Pulse Rate 90 Respiratory Rate Blood Pressure O2 Sat by Pulse Oximetry - Labs CBC & Chem 7: 03/15/22 09:52 03/17/22 06:53 Labs: Abnormal lab results 03/16/22 03/16/22 03/16/22 Range/Units 08:38 10:32 10:32 D-Dimer 679.25 H (0-234) ng/mlDDU Potassium 3.5 L (3.6-5.0) mmol/L Carbon Dioxide (22-30) mmol/L BUN 22 H (9-20) mg/dL Glucose 209 H (75-100) mg/dL POC Glucose 144 H (70-105) mg/dL AST 85 H (5-40) units/L ALT (7-56) units/L C-Reactive Protein 5.60 H (0.00-1.30) mg/dL Total Protein 5.7 L (6.3-8.2) g/dL Albumin 3.7 L (3.9-5) g/dL 03/16/22 03/16/22 03/16/22 Range/Units 11:19 17:43 22:37 D-Dimer (0-234) ng/mlDDU Potassium (3.6-5.0) mmol/L Carbon Dioxide (22-30) mmol/L BUN (9-20) mg/dL Glucose (75-100) mg/dL POC Glucose 187 H 175 H 164 H (70-105) mg/dL AST (5-40) units/L ALT (7-56) units/L C-Reactive Protein (0.00-1.30) mg/dL Total Protein (6.3-8.2) g/dL Albumin (3.9-5) g/dL 03/17/22 03/17/22 Range/Units 06:53 07:46 D-Dimer (0-234) ng/mlDDU Potassium (3.6-5.0) mmol/L Carbon Dioxide 21 L (22-30) mmol/L BUN (9-20) mg/dL Glucose 183 H (75-100) mg/dL POC Glucose 138 H (70-105) mg/dL AST 89 H (5-40) units/L ALT 64 H (7-56) units/L C-Reactive Protein (0.00-1.30) mg/dL Total Protein 6.1 L (6.3-8.2) g/dL Albumin 3.5 L (3.9-5) g/dL Medications & Allergies - Medications Allergies/Adverse Reactions: Allergies No Known Allergies Allergy (Verified 03/16/22 11:11) Home Medications: Home Medications Medication Instructions Recorded Confirmed Last Taken Type Abiraterone Acetate 250 mg PO 4XD 06/24/19 03/16/22 03/13/22 History AtorvaSTATin [Lipitor] 40 mg PO DAILY 06/24/19 03/16/22 03/13/22 History Prednisone [predniSONE (Shy) ER 5 mg PO QDAY 06/24/19 03/16/22 03/13/22 History TAB] Degarelix Acetate [Firmagon] 80 mg SQ QMONTH 03/16/22 03/16/22 1 Month Ago History ~02/14/22 Metoprolol [Lopressor] 25 mg PO BID 03/16/22 03/16/22 03/13/22 History Pantoprazole [Protonix TAB] 20 mg QDAY 03/16/22 03/16/22 03/13/22 History Pioglitazone HCl [Actos] 30 mg PO QDAY 03/16/22 03/16/22 03/13/22 History Active Medications: Generic Name Dose Route Start Last Admin Trade Name Freq PRN Reason Stop Dose Admin Acetaminophen 650 mg 03/13/22 04:21 03/13/22 20:07 Acetaminophen 325 Mg Tab PO 650 mg Q4H PRN Administration Pain MILD(1-3)/Fever >100.5/MONTOYA Albuterol 2 puff 03/13/22 16:30 Albuterol 8.5 Gm Mdi Inhalation IH Q4HRT PRN Shortness Of Breath Atorvastatin Calcium 40 mg 03/13/22 10:00 03/16/22 10:15 Atorvastatin 40 Mg Tab PO 40 mg DAILY ROBERTO Administration Azithromycin 500 mg 03/13/22 16:00 03/16/22 15:30 Azithromycin 250 Mg Tab PO 03/17/22 16:01 500 mg Q24H ROBERTO Administration Protocol Dexamethasone 10 mg 03/13/22 14:00 03/17/22 02:15 Dexamethasone 4 Mg Tab PO 10 mg Q12H ROBERTO Administration Dextrose 50 ml 03/13/22 04:21 Dextrose 50% In Water (25gm) 50 Ml Syringe IV Q30MIN PRN Hypoglycemia Protocol Famotidine 20 mg 03/14/22 10:00 03/16/22 22:32 Famotidine 20 Mg Tab PO 20 mg BID ROBERTO Administration Heparin Sodium (Porcine) 5,000 unit 03/13/22 10:00 03/16/22 22:32 Heparin 5,000 Unit/1 Ml Vial SUB-Q 5,000 unit Q12HR ROBERTO Administration Ceftriaxone Sodium 2 gm in 100 mls @ 200 mls/hr 03/13/22 16:00 03/16/22 15:31 Rocephin/Ns 2 Gm/100 Ml IV 03/17/22 16:29 200 mls/hr Q24H ROBERTO Administration Remdesivir 100 mg/ Sodium 250 mls @ 500 mls/hr 03/15/22 14:00 03/16/22 14:00 Chloride IV 03/18/22 14:29 500 mls/hr Q24HR@1400 ROBERTO Administration Insulin Human Lispro 0 unit 03/13/22 07:30 03/16/22 22:41 Insulin Lispro 100 Unit/Ml SUB-Q 2 unit ACHS ROBERTO Administration Protocol Miscellaneous Medication 1,000 mg 03/14/22 10:00 03/16/22 10:17 Abiraterone Acetate [Abiraterone Acetate] PO 1,000 mg DAILY ROBERTO Administration Ondansetron HCl 4 mg 03/13/22 04:21 Ondansetron 4 Mg/2 Ml Inj IV Q8H PRN Nausea And Vomiting Polyethylene Glycol 17 gm 03/13/22 10:00 03/16/22 10:15 Polyethylene Glycol 3350 17 Gm Powder PO 17 gm QDAY ROBERTO Administration Sodium Chloride 10 ml 03/13/22 10:00 03/17/22 08:11 Sodium Chloride 0.9% 10 Ml Flush Syringe IV 10 ml BID ROBERTO Administration Sodium Chloride 10 ml 03/13/22 04:21 Sodium Chloride 0.9% 10 Ml Flush Syringe IV PRN PRN LINE FLUSH Sodium Chloride 50 ml 03/14/22 12:00 03/16/22 14:32 Sodium Chloride 0.9% 50 Ml Ivpb IV 03/18/22 14:01 50 ml Q24HR@1400 ROBERTO Administration HEART Score - HEART Score Troponin: Troponin T 0.074 ng/mL (0.00-0.029) H 03/13/22 14:03
--- NOTE | 2022-03-17 08:42 | Discharge Summary ---
Providers - Providers Date of Admission: 03/13/22 04:21 Date of discharge: 03/17/22 Attending physician: CAMILA LAIRD 03/13/22 03:14 Consult to Physician [CONS] Stat Comment: Dr. Khan spoke with Dr. Sanchez @ 0300 Consulting Provider: AMY SANCHEZ Physician Instructions: Reason For Exam: Sepsis, UTI, acute respiratory failure 03/13/22 04:21 Consult to Dietitian/Nutrition [CONS] Routine Physician Instructions: Reason For Exam: Reason for Consult: Diet education 03/13/22 04:38 Consult to Physician [CONS] Routine Comment: Consulting Provider: RENAE MALDONADO Physician Instructions: Reason For Exam: Elevated troponin 03/13/22 12:50 Midline [Consult to PICC Line RN] [CONS] Routine Reason For Exam: difficult IV access Type Line:: Midline 03/13/22 18:28 Physical Therapy Evaluation and Treat [CONS] Routine Comment: Reason For Exam: debility 03/14/22 08:00 Consult to Physician [CONS] Routine Comment: called office/ so Consulting Provider: ASAD SOLIS Physician Instructions: Reason For Exam: covid 19 infection 03/14/22 12:49 Occupational Therapy Evaluate and Treat [CONS] Routine Comment: Reason For Exam: debility 03/15/22 09:07 Consult to Physician [CONS] Routine Comment: Consulting Provider: BRIGIDO PFEIFFER Physician Instructions: Reason For Exam: Met prostate CA, pulled out cudet Primary care physician: TEO BEASLEY Hospitalization Reason for admission: Pneumonia Condition: Fair Hospital course: This is a 81-year-old male with known past medical history of of prostate CA w mets to bone (currently undergoing treatment), HTN, DM2, and lymphedema admitted for acute hypoxic respiratory failure secondary to COVID 19 pneumonia. [facility] diagnosis of acute hypoxic respiratory failure secondary to COVID-19 pneumonia. Patient presented with difficulty breathing requiring initially continuous BiPAP. Chest x-ray revealed worsening bilateral pulmonary opacities. Patient was found to have a COVID PCR that was positive. Patient was initiated on IV antibiotics of Rocephin and azithromycin due to elevated procalcitonin levels. Patient also received remdesivir and Decadron p.o. ID and critical care evaluated the patient. Patient eventually had oxygen weaned to minimal requirements of 3 L then off and satting at 98%. Antibiotics of Rocephin and azithromycin were completed today. Other complications during hospital stay included urinary tract infection which was treated with the above antibiotics as well. Patient initially had hypotension on admission but resolved after IV fluid hydration. As noted above, patient with history of prostate cancer with mets to the bone and had episode of pulling out coud catheter due to pain. Patient was evaluated by urology who placed a condom catheter and will have further follow-up as an outpatient. Hematuria resolved Hospital Course To Date: 03/13: COVID +, initiated on azithro/rocephin for both empiric cap coverage and UTI tx. Decadron iv intiated. ID consultation for covid infection/viral pneumonia tx. case d/w PCCM Dr. Sanchez. 03/14: Remains stable on 3L NC, VSS. Continue current empiric IV Abx, and PO decadronX 10days. ID on consulted, Remdesevir initiated for 5days. Thrombocytopenia since admit, H&H stable. No s/s of any active bleeding. Given patient CA history and current COVID + will continue VTE proph for now, close monitoring of platelet count. Patient is stable for transfer to the floor. PT/OT ordered. 03/15: Patient reportedly confused last night and pulled out urinary catheter. Patient has a history of metastatic prostate cancer and previously with coud catheter. Urology consulted. Continue remdesivir and Decadron per ID recommendations. Replete potassium 03/16: Patient back to baseline mental status. Alert and oriented x3. Patient still complains of dyspnea with minimal exertion. Patient currently with 2 L O2 satting at 98%. We will perform walk test. Continue IV dexamethasone and remdesivir. Continue 5 days of ceftriaxone and azithromycin given the elevated procalcitonin level. Patient with hematuria from Calero trauma. Leave Calero out for now. Continue condom catheter. 03/17: Patient is satting 98% on room air with no oxygen requirements. Patient will be discharged home on dexamethasone p.o. patient should discharge home with condom catheter and follow-up with urology and ID as an outpatient. Dedicated discharge time 32 minutes. Disposition: 01 HOME / SELF CARE / HOMELESS Final Discharge Diagnosis (Prints w/discharge instructions): Acute hypoxic respiratory failure secondary to COVID-19 pneumonia, urinary tract infection, elevated troponin secondary to sepsis, sepsis, hyperlipidemia, hypertension, diabetes mellitus type 2, prostate cancer with bone metastasis, hematuria from traumatic Calero, morbid obesity, hypokalemia, Core Measure Documentation - Palliative Care Palliative Care/ Comfort Measures: Not Applicable - Core Measures Any of the following diagnoses?: none Exam - Constitutional Vitals: Temp Pulse Resp BP Pulse Ox 98.1 F 90 17 155/80 100 03/16/22 22:24 03/17/22 04:00 03/16/22 22:24 03/17/22 00:00 03/16/22 22:24 General appearance: Present: no acute distress, well-nourished - EENT Eyes: Present: PERRL ENT: hearing intact, clear oral mucosa - Neck Neck: Present: supple, normal ROM - Respiratory Respiratory effort: normal Respiratory: bilateral: CTA - Cardiovascular Heart Sounds: Present: S1 & S2. Absent: rub, click - Extremities Extremities: pulses symmetrical, No edema Peripheral Pulses: within normal limits - Abdominal General gastrointestinal: Present: soft, non-tender, non-distended, normal bowel sounds Male genitourinary: Present: normal - Integumentary Integumentary: Present: clear, warm, dry - Musculoskeletal Musculoskeletal: gait normal, strength equal bilaterally - Psychiatric Psychiatric: appropriate mood/affect, intact judgment & insight - Neurologic Neurologic: CNII-XII intact, moves all extremities Plan Activity: advance as tolerated, up only with assistance Diet: regular Follow up with: TEO BEASLEY MD [Primary Care Provider] - 7 Days BRIGIDO PFEIFFER MD [Staff Physician] - 7 Days ASAD SOLIS MD [Staff Physician] - 7 Days Prescriptions: dexAMETHasone [Dexamethasone] 6 mg PO DAILY #7 tab
--- NOTE | 2022-03-17 10:07 | Progress Note ---
Assessment and Plan Cultures: SARS CoV2 PCR: Positive 03/13/2022 blood culture: No growth A/P: 81-year-old male with diabetes, hypertension, morbid obesity, prostate cancer with bony metastasis on treatment admitted with: #Sepsis, likely secondary to COVID-19 #Acute hypoxic respiratory failure: Initially required BiPAP, then nasal cannula and now weaned to room air. #Mild transaminitis: Probably secondary to COVID-19 #Elevated troponin #Acute thrombocytopenia: Could be from viral illness #UTI: UA showed pyuria. Urine culture in process. #History of prostate cancer with bony metastasis: On treatment. Hematuria with Calero on admission with urethral trauma, Calero was removed. Seen by urology. Recs: Completes antibiotics today Remains on room air, agree with discharge. Does not need to remain inpatient to complete remdesivir course d/w Dr. Harrell. Mauricio Doyle MD, FACP, [facility] O: [phone] F: [phone] C: [phone] Subjective Date of service: 03/17/22 Principal diagnosis: Weakness, Dyspnea Interval history: No fever. Weaned to room air. Objective - Exam Narrative Exam: Physical Exam (reviewed in chart to minimize risk of transmission) Constitutional: deferred Head, Ears, Nose: deferred Eyes: deferred Neck: deferred Oral: deferred Cardiovascular: deferred Respiratory: deferred GI: deferred Musculoskeletal: deferred Skin: deferred Hem/Lymphatic: deferred Psych: deferred Neurological: deferred - Constitutional Vitals: Vital Signs Temp Pulse Resp BP Pulse Ox 98.1 F 90 17 155/80 99 03/16/22 22:24 03/17/22 04:00 03/16/22 22:24 03/17/22 00:00 03/17/22 08:44 Temperature -Last 24 Hours Temperature 98.1 F Temperature 97.8 F - Labs CBC & Chem 7: 03/15/22 09:52 03/17/22 06:53 Labs: Abnormal lab results 03/16/22 03/16/22 03/16/22 Range/Units 10:32 10:32 11:19 D-Dimer 679.25 H (0-234) ng/mlDDU Potassium 3.5 L (3.6-5.0) mmol/L Carbon Dioxide (22-30) mmol/L BUN 22 H (9-20) mg/dL Glucose 209 H (75-100) mg/dL POC Glucose 187 H (70-105) mg/dL AST 85 H (5-40) units/L ALT (7-56) units/L C-Reactive Protein 5.60 H (0.00-1.30) mg/dL Total Protein 5.7 L (6.3-8.2) g/dL Albumin 3.7 L (3.9-5) g/dL 03/16/22 03/16/22 03/17/22 Range/Units 17:43 22:37 06:53 D-Dimer (0-234) ng/mlDDU Potassium (3.6-5.0) mmol/L Carbon Dioxide 21 L (22-30) mmol/L BUN (9-20) mg/dL Glucose 183 H (75-100) mg/dL POC Glucose 175 H 164 H (70-105) mg/dL AST 89 H (5-40) units/L ALT 64 H (7-56) units/L C-Reactive Protein (0.00-1.30) mg/dL Total Protein 6.1 L (6.3-8.2) g/dL Albumin 3.5 L (3.9-5) g/dL 03/17/22 Range/Units 07:46 D-Dimer (0-234) ng/mlDDU Potassium (3.6-5.0) mmol/L Carbon Dioxide (22-30) mmol/L BUN (9-20) mg/dL Glucose (75-100) mg/dL POC Glucose 138 H (70-105) mg/dL AST (5-40) units/L ALT (7-56) units/L C-Reactive Protein (0.00-1.30) mg/dL Total Protein (6.3-8.2) g/dL Albumin (3.9-5) g/dL
== END 2022-03-17 14:30 | disposition home health service (06) | DRG 871 ==
LOC: ED 23:34 → CC1 03-13 04:21 → 3A 03-14 15:50
PROVIDERS: ADMIT Hospitalist; ATTEND Hospitalist
PROC: 4A033R1 Measurement of Arterial Saturation, Peripheral, Percutaneous Approach (ICD-10-PCS; principal; 2022-03-13)
PROC: 05HA33Z Insertion of Infusion Device into Left Brachial Vein, Percutaneous Approach (ICD-10-PCS; 2022-03-13)
PROC: 5A09357 Assistance with Respiratory Ventilation, Less than 24 Consecutive Hours, Continuous Positive Airway Pressure (ICD-10-PCS; 2022-03-13)
PROC: XW033E5 Introduction of Remdesivir Anti-infective into Peripheral Vein, Percutaneous Approach, New Technology Group 5 (ICD-10-PCS; 2022-03-14)
PROC: 5A09357 Assistance with Respiratory Ventilation, Less than 24 Consecutive Hours, Continuous Positive Airway Pressure (ICD-10-PCS; 2022-03-15)
DX: A41.89 Other specified sepsis (principal); U07.1 COVID-19; J96.01 Acute respiratory failure with hypoxia; J12.82 Pneumonia due to coronavirus disease 2019; N39.0 Urinary tract infection, site not specified; C79.51 Secondary malignant neoplasm of bone; E11.65 Type 2 diabetes mellitus with hyperglycemia; E66.01 Morbid (severe) obesity due to excess calories; Z68.39 Body mass index [BMI] 39.0-39.9, adult; C61 Malignant neoplasm of prostate; I10 Essential (primary) hypertension; K21.9 Gastro-esophageal reflux disease without esophagitis; E78.5 Hyperlipidemia, unspecified; R77.8 Other specified abnormalities of plasma proteins; I44.7 Left bundle-branch block, unspecified; I89.0 Lymphedema, not elsewhere classified; D69.6 Thrombocytopenia, unspecified; E87.6 Hypokalemia; R31.9 Hematuria, unspecified; Z82.49 Family history of ischemic heart disease and other diseases of the circulatory system
CPT/HCPCS: 36415; 71045; 80048; 80053; 80061; 81001; 82140; 82728; 82803; 82962; 83615; 84145; 84484; 85025; 85027; 85379; 86140; 87040; 93005; 93306; 94640; 94644; 94760; G0378; J3490; Q9967; C8929; J0131; J0696; J1644; J1815; J2543; J7030; J7050; J8540; U0003